=== PATIENT | male | born 1990 | race Two or more races ===

== ENCOUNTER 2017-03-16 14:01 | Emergency (ER) | payer MEDICAID ==
[~2017-03-16] VITALS: Ht 172.7 cm; Wt 90.7 kg
[2017-03-16 15:00] VITALS: BP 142/91
== END 2017-03-16 16:57 | disposition home or self-care (01) ==
LOC: ER 14:01
DX: S62.336A Displaced fracture of neck of fifth metacarpal bone, right hand, initial encounter for closed fracture (principal); F41.9 Anxiety disorder, unspecified; F17.210 Nicotine dependence, cigarettes, uncomplicated; W01.0XXA Fall on same level from slipping, tripping and stumbling without subsequent striking against object, initial encounter; Y93.89 Activity, other specified; Y92.89 Other specified places as the place of occurrence of the external cause; Y99.8 Other external cause status
CPT/HCPCS: 29125; 73130

== ENCOUNTER 2017-03-19 12:26 | Emergency (ER) | payer MEDICAID ==
[~2017-03-19] VITALS: Ht 172.7 cm; Wt 90.7 kg
[2017-03-19 12:37] VITALS: BP 129/93
== END 2017-03-19 15:12 | disposition home or self-care (01) ==
LOC: ER 12:26
DX: S62.306D Unspecified fracture of fifth metacarpal bone, right hand, subsequent encounter for fracture with routine healing (principal); F17.210 Nicotine dependence, cigarettes, uncomplicated

== ENCOUNTER 2017-04-17 10:51 | Emergency (ER) | payer MEDICAID ==
[~2017-04-17] VITALS: Ht 172.7 cm; Wt 100.7 kg
[2017-04-17 10:56] VITALS: BP 148/94
== END 2017-04-17 12:15 | disposition home or self-care (01) ==
LOC: ER 10:53
DX: F41.9 Anxiety disorder, unspecified (principal); F17.210 Nicotine dependence, cigarettes, uncomplicated; Z76.0 Encounter for issue of repeat prescription

== ENCOUNTER 2017-05-20 08:14 | Emergency (ER) | payer MEDICAID ==
[~2017-05-20] VITALS: Ht 172.7 cm; Wt 102.5 kg
[2017-05-20 09:08] VITALS: BP 143/92
[2017-05-20] MEDS ORDERED: ALPRAZolam 0.5 MG TAB PO ONE (09:30)
== END 2017-05-20 09:36 | disposition home or self-care (01) ==
LOC: ER 08:14
DX: F41.9 Anxiety disorder, unspecified (principal); F17.210 Nicotine dependence, cigarettes, uncomplicated; Z76.0 Encounter for issue of repeat prescription
CPT/HCPCS: 93005

== ENCOUNTER 2017-05-28 08:09 | Emergency (ER) | payer MEDICAID ==
[~2017-05-28] VITALS: Ht 172.7 cm; Wt 81.6 kg
[2017-05-28 08:25] VITALS: BP 155/74
== END 2017-05-28 10:26 | disposition home or self-care (01) ==
LOC: ER 08:09
DX: F41.9 Anxiety disorder, unspecified (principal); Z76.0 Encounter for issue of repeat prescription; F17.210 Nicotine dependence, cigarettes, uncomplicated

== ENCOUNTER 2017-08-21 08:49 | Emergency (ER) | payer MEDICAID ==
[~2017-08-21] VITALS: Ht 172.7 cm; Wt 103.9 kg
[2017-08-21 09:00] VITALS: BP 146/95
== END 2017-08-21 09:23 | disposition home or self-care (01) ==
LOC: ER 08:49
DX: J20.9 Acute bronchitis, unspecified (principal); F17.210 Nicotine dependence, cigarettes, uncomplicated

== ENCOUNTER 2017-08-26 06:27 | Emergency (ER) | payer MEDICAID ==
[~2017-08-26] VITALS: Ht 172.7 cm; Wt 103.9 kg
[2017-08-26 06:55] VITALS: BP 146/99
== END 2017-08-26 08:10 | disposition home or self-care (01) ==
LOC: ER 06:37
DX: F41.9 Anxiety disorder, unspecified (principal); F17.210 Nicotine dependence, cigarettes, uncomplicated; Z76.0 Encounter for issue of repeat prescription

== ENCOUNTER 2018-01-11 06:55 | Emergency (ER) | payer MEDICAID ==
[~2018-01-11] VITALS: Ht 172.7 cm; Wt 102.1 kg
[2018-01-11 07:14] VITALS: BP 148/87
== END 2018-01-11 08:48 | disposition home or self-care (01) ==
LOC: ER 06:55
DX: F41.9 Anxiety disorder, unspecified (principal); J45.909 Unspecified asthma, uncomplicated; F17.210 Nicotine dependence, cigarettes, uncomplicated

== ENCOUNTER 2018-01-17 10:20 | Emergency (ER) | payer MEDICAID, OTHER ==
[~2018-01-17] VITALS: Ht 172.7 cm; Wt 99.8 kg
[2018-01-17 10:35] VITALS: BP 143/97
[2018-01-17] MEDS ORDERED: ALPRAZolam 0.5 MG TAB PO ONE (12:45)
[2018-01-17] MEDS ORDERED: ALPRAZolam 0.5 MG TAB ONE (12:59)
== END 2018-01-17 13:08 | disposition home or self-care (01) ==
LOC: ER 10:20
DX: F41.9 Anxiety disorder, unspecified (principal); J45.909 Unspecified asthma, uncomplicated; F17.210 Nicotine dependence, cigarettes, uncomplicated; F12.10 Cannabis abuse, uncomplicated; Z76.0 Encounter for issue of repeat prescription

== ENCOUNTER 2018-04-10 08:51 | Emergency (ER) | payer OTHER ==
[~2018-04-10] VITALS: Ht 172.7 cm; Wt 99.8 kg
[2018-04-10 09:14] VITALS: BP 162/94
[2018-04-10] MEDS ORDERED: ALPRAZolam 0.5 MG TAB PO ONE (10:15)
== END 2018-04-10 10:20 | disposition home or self-care (01) ==
LOC: ER 08:51
DX: F41.9 Anxiety disorder, unspecified (principal); J45.909 Unspecified asthma, uncomplicated; F17.210 Nicotine dependence, cigarettes, uncomplicated; F12.10 Cannabis abuse, uncomplicated; Z76.0 Encounter for issue of repeat prescription

== ENCOUNTER 2018-08-04 07:39 | Emergency (ER) | payer MEDICAID ==
[~2018-08-04] VITALS: Ht 172.7 cm; Wt 99.8 kg
[2018-08-04 07:46] VITALS: BP 145/92
== END 2018-08-04 08:39 | disposition home or self-care (01) ==
LOC: ER 07:44
DX: F41.9 Anxiety disorder, unspecified (principal); F17.210 Nicotine dependence, cigarettes, uncomplicated; F12.10 Cannabis abuse, uncomplicated; F10.10 Alcohol abuse, uncomplicated; J45.909 Unspecified asthma, uncomplicated; Z76.0 Encounter for issue of repeat prescription

== ENCOUNTER 2019-03-31 10:52 | Emergency (ER) | payer MEDICAID ==
[~2019-03-31] VITALS: Ht 172.7 cm; Wt 104.3 kg
[2019-03-31] MEDS ORDERED: SODIUM CHLORIDE 0.9% 1,000 ML IV ONE (11:10)
[2019-03-31] MEDS ORDERED: LORazepam 2MG/ML-1ML VIAL IV ONE (11:15)
[2019-03-31 12:17] LABS: Alanine Aminotransferase 191 U/L (16-61); Albumin 4.8 g/dL (3.4-5.0); Alkaline Phosphatase 62 U/L (45-117); Aspartate Aminotransferase 141 U/L (15-37); BUN/Creatinine Ratio 7.7; Bilirubin, Total 1.1 mg/dL (0.2-1.0); Blood Urea Nitrogen 8 mg/dL (7-18); Calcium 9.5 mg/dL (8.5-10.1); Carbon Dioxide 26 mmol/L (21-32); GFR African American 109 mL/min; GFR Non-African American 90 mL/min; Glucose 106 mg/dL (74-106); Sodium 133 mmol/L (136-145); Total Protein 9.1 g/dL (6.4-8.2)
[2019-03-31 12:18] LABS: Anion Gap 8 (5-15); Chloride 99 mmol/L (98-107)
[2019-03-31 12:30] LABS: Lymphocytes # (auto) 1.6 uL; Nucleated Red Blood Cells % 0.1 %; Red Cell Distribution Width 13.8 % (11.8-14.3)
[2019-03-31 12:32] LABS: Basophils # (auto) 0.1 uL; Basophils % (auto) 0.7 % (0.0-2.0); Eosinophils # (auto) 0.1 uL; Eosinophils % (auto) 0.4 % (0.0-7.0); Hematocrit 54.7 % (41.0-53.0); Lymphocytes % (auto) 13.3 % (10.0-50.0); Mean Corpuscular Hemoglobin 28.9 pg (28.0-32.0); Mean Corpuscular Volume 87.6 fL (80.0-100.0); Monocytes # (auto) 0.8 uL; Monocytes % (auto) 6.8 % (0.0-12.0); Neutrophils # (auto) 9.3 uL; Neutrophils % (auto) 78.8 % (37.0-80.0); Platelet Count (auto) 381 10^3/uL (140-450); Red Blood Cells 6.24 10^6/uL (4.5-5.90); White Blood Cell 11.9 10^3/uL (4.4-10.8)
[2019-03-31 12:32] LABS: Amphetamine Screen, Urine NEGATIVE (NEGATIVE); Barbiturate Scree,Urine NEGATIVE (NEGATIVE); Benzodiazephine Screen, Urine POSITIVE (NEGATIVE); Cannabinoid Screen, Urine POSITIVE (NEGATIVE); Cocaine Screen, Urine NEGATIVE (NEGATIVE); Opiate Scree,Urine NEGATIVE (NEGATIVE); Phencyclidine Screen, Urine NEGATIVE (NEGATIVE)
[2019-03-31 12:37] LABS: Urine Bacteria NONE SEEN /hpf (None Seen); Urine Blood Negative /uL (Negative); Urine Mucus FEW (None Seen); Urine Specific Gravity 1.012 (1.001-1.035); Urine WBC 4 /hpf (0 - 3)
[2019-03-31 13:00] VITALS: BP 136/81
== END 2019-03-31 13:25 | disposition home or self-care (01) ==
LOC: ER 10:57
DX: F41.9 Anxiety disorder, unspecified (principal); J45.909 Unspecified asthma, uncomplicated; F17.210 Nicotine dependence, cigarettes, uncomplicated; F12.90 Cannabis use, unspecified, uncomplicated
CPT/HCPCS: 36415; 80053; 80307; 81001; 84484; 85025; 93005; 94761; 96361; 96374; 99284; J2060; J7030

== ENCOUNTER 2022-04-24 15:36 | Emergency (ER) | payer MEDICAID ==
[~2022-04-24] VITALS: Ht 172.7 cm; Wt 106.0 kg
[2022-04-24 15:55] LABS: Basophils # (auto) 0 10 ^3/uL (0-0.2); Basophils % (auto) 0.6 % (0.0-2.0); Eosinophils # (auto) 0 10 ^3/uL (0-0.8); Eosinophils % (auto) 0.6 % (0.0-7.0); Hematocrit 50.6 % (41.0-53.0); Hemoglobin 16.7 g/dL (13.5-17.5); Lymphocytes % (auto) 23.3 % (10.0-50.0); Mean Corpuscular Hemoglobin 28.8 pg (28.0-32.0); Mean Corpuscular Volume 87.2 fL (80.0-100.0); Monocytes # (auto) 0.5 10 ^3/uL (0-1.3); Monocytes % (auto) 5.6 % (0.0-12.0); Neutrophils # (auto) 6.1 10 ^3/uL (1.6-8.6); Neutrophils % (auto) 69.9 % (37.0-80.0); Nucleated Red Blood Cells % 0.3 %; Red Blood Cells 5.81 10^6/uL (4.5-5.90); Red Cell Distribution Width 12.8 % (11.8-14.3); White Blood Cell 8.7 10^3/uL (4.4-10.8)
[2022-04-24 16:22] LABS: Albumin 4.5 g/dL (3.4-5.0); BUN/Creatinine Ratio 10.6; Calcium 8.9 mg/dL (8.5-10.1); Potassium 3.8 mmol/L (3.5-5.1)
[2022-04-24 16:29] LABS: Urine Bacteria NONE SEEN /hpf (None Seen); Urine Blood TRACE /uL (Negative); Urine Specific Gravity 1.034 (1.001-1.035); Urine WBC 21 /hpf (0 - 3)
[2022-04-24 16:30] LABS: Bilirubin, Total 0.7 mg/dL (0.2-1.0); Total Protein 8.6 g/dL (6.4-8.2)
[2022-04-24] MEDS ORDERED: ALUM & MAG HYDROX-SIMETH LIQ(MAALOX) 30 ML PO ONE (16:30)
[2022-04-24] MEDS ORDERED: LORazepam 0.5 MG TAB PO ONE (19:15)
[2022-04-24] MEDS ORDERED: ALPR1TAB7 PO ×2 (19:27→19:29)
[2022-04-24 22:17] VITALS: BP 153/98
== END 2022-04-24 22:20 | disposition home or self-care (01) ==
LOC: ER 15:36
DX: F41.9 Anxiety disorder, unspecified (principal); J45.909 Unspecified asthma, uncomplicated; F17.210 Nicotine dependence, cigarettes, uncomplicated; F12.10 Cannabis abuse, uncomplicated
CPT/HCPCS: 36415; 71045; 80053; 81001; 82962; 84484; 85025; 93005

== ENCOUNTER 2024-12-12 08:09 | Emergency (ER) | payer MEDICAID, OTHER ==
[~2024-12-12] VITALS: Ht 172.7 cm; Wt 104.0 kg
[~2024-12-12 08:09] MED LIST: ALPR1TAB7 PO
[2024-12-12 08:52] VITALS: BP 159/88; PULSE 85; RESP 17; TEMP 98.2; O2SAT 97
--- NOTE | 2024-12-12 08:58 | ED.PDOC ---
HPI Comments This is a pleasant 33-year-old male who presents for work-related injury and was brought in by ambulance for a laceration to the left wrist that occurred approximately two hours ago. 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 Pain is currently rated as mild Denies any numbness tingling to the affected extremity Last tetanus shot was 2 years ago Chief Complaint: Laceration Time Seen by MD: 08:27 Primary Care Provider: None Reviewed Notes: Nurses Notes, Medications, Allergies Allergies: Coded Allergies: NO KNOWN ALLERGIES (Unverified , 05/28/15) Home Meds Active Scripts Alprazolam (Alprazolam) 1 Mg Tab, 1 TAB PO Q12HP PRN for 7 Days, #10 TAB Prov:ROSMERY ALVARADO MD 04/24/22 Information Source: Patient Mode of Arrival: EMS Complexity: Intermediate Laceration Length (cm): 3 Past Medical History PAST MEDICAL HISTORY: Anxiety, Asthma Surgical History: Denies all surgeries Family History Family History: Unknown Social History Smoker: Cigarettes, Less Than 1 Pack/Day Alcohol: Occasionally Drugs: Marijuana Lives In: Home All Other Systems: Reviewed and Negative (per hpi) Physical Exam General Appearance: No Apparent Distress, Normal HEENT: Normal ENT Inspection, Pharynx Normal, TMs Normal Neck: Full Range of Motion, Non-Tender, Normal, Normal Inspection Respiratory: Chest Non-Tender, Lungs Clear, No Accessory Muscle Use, No Respiratory Distress, Normal Breath Sounds Cardiovascular: No Edema, No JVD, No Murmur, No Gallop, Normal Peripheral Pulses, Regular Rate/Rhythm Breast Exam: Deferred Gastrointestinal: No Organomegaly, Non Tender, No Pulsatile Mass, Normal Bowel Sounds, Soft Genitalia: Deferred Pelvic: Deferred Rectal: Deferred Extremities: No calf tenderness, Normal capillary refill, Normal inspection, Normal range of motion, Non-tender, No pedal edema Musculoskeletal : Apperance: Normal Neurologic: Alert, supervisor contact and service clerks II-XII nml as Tested, No Motor Deficits, Normal Affect, Normal Mood, No Sensory Deficits Cerebellar Function: Normal Reflexes: Normal Skin: Dry, Normal Color, Warm Lymphatic: No Adenopathy Was a procedure done? Was a procedure done?: Yes Sedation Sedation?: No Laceration Repair : Location L wrist Length 3 Anesthetic: Lidocaine Laceration Repair Prep: Saline, Betadine Laceration Repair Wound Comple: epidermis/dermis repair Laceration Repair: Number of sutures (4), Size (4-0), Simple, Bacitracin, Non-adherent gauze, Gauze Informed consent obtained: Yes Risks, benefits, and alternati: Yes Differential diagnosis Generic Laceration: Tendon Injury, Abrasion/Contusion, Laceration, Avulsion X-Ray, Labs, Meds, VS Vital Signs Date Time Temp Pulse Resp B/P (MAP) Pulse Ox O2 Delivery O2 Flow Rate FiO2 12/12/24 08:52 98.2 85 17 159/88 (111) 97 98.2 12/12/24 08:52 85 17 97 Room Air 12/12/24 08:16 98.2 85 17 159/88 (111) 97 X-Ray, Labs, Meds, VS Comment The skin edges of the laceration were infiltrated with 1% lidocaine The skin surrounding the laceration was scrubbed with Betadine soaked sterile gauze The laceration was irrigated under high-pressure with a 60 mL syringe A total of 1L sterile water was used. Including diluted Betadine solution The laceration was prepped in sterile fashion with sterile drapes On examination under direct light, there was no foreign body seen The laceration was repaired in simple interrupted technique There was no continuing bleeding on repair. There were no complications related to repair Education and follow-up instructions provided Wound check in 2 days Return sooner for signs of infection such as fevers, increased pain, redness, green, yellow discharge, or any concerns Keep wound dry for 24 to 48 hours; dry dressing may be changed Protect from sunlight and keep area clean and dry. Use soap and water if it gets dirty High risk of possible scarring and education provided on ways to minimize scarring after wound heals Also provided education on possible complications post procedure including wound dehiscence, infection, etc. Time of 1ST Reevaluation: 08:57 Reevaluation 1ST: Improved Patient Education/Counseling: Diagnosis, Treatment Family Education/Counseling: Diagnosis, Treatment Departure 1 Departure Time of Disposition: 10:01 Impression: Primary Impression: Laceration of wrist, left Qualified Codes: S61.512A - Laceration without foreign body of left wrist, initial encounter Disposition: HOME / SELF CARE / HOMELESS Condition: Fair e-Prescriptions Bacitracin (Bacitracin Oint) 1 Applic Ap 1 APPLIC TOP BID for 7 Days, #5 GRAMS 0 Refills Prov: SANTA HARTMAN VOICE STUDIES DIRECTOR 12/12/24 Acetaminophen (Acetaminophen) 500 Mg Tab 500 MG PO Q6HP PRN for 5 Days, #20 TAB 0 Refills Prov: SANTA HARTMAN VOICE STUDIES DIRECTOR 12/12/24 Ciprofloxacin Hcl (Cipro) 500 Mg Tab 1 TAB PO BID for 5 Days, #10 TAB 0 Refills Prov: SANTA HARTMAN VOICE STUDIES DIRECTOR 12/12/24 Discharged With: Self Critical Care Note Critical Care Time?: No Stability Stability form required: No Heart Score Heart Score: Heart Score Response (Comments) Value History N/A 0 EKG N/A 0 Age N/A 0 Risk Factors N/A 0 Troponin N/A 0 Total 0 SANTA HARTMAN VOICE STUDIES DIRECTOR Dec 12, 2024 08:58
[2024-12-12] MEDS ORDERED: ACET500T58 PO (10:03)
[2024-12-12] MEDS ORDERED: BAC09TP TOP (10:03)
[2024-12-12] MEDS ORDERED: CIPR-173 PO (10:03)
== END 2024-12-12 10:16 | disposition home or self-care (01) ==
LOC: ER 08:09 → EDBD 08:09 → ER 10:15
DX: S61.512A Laceration without foreign body of left wrist, initial encounter (principal); J45.909 Unspecified asthma, uncomplicated; F17.210 Nicotine dependence, cigarettes, uncomplicated; Z79.899 Other long term (current) drug therapy; W26.8XXA Contact with other sharp object(s), not elsewhere classified, initial encounter; Y93.89 Activity, other specified; Y92.89 Other specified places as the place of occurrence of the external cause; Y99.0 Civilian activity done for income or pay
CPT/HCPCS: 12002; 99283; J2003

== ENCOUNTER 2025-04-20 06:54 | Inpatient (IN) | payer MEDICAID, OTHER ==
[~2025-04-20] VITALS: Ht 170.2 cm; Wt 104.4 kg
[~2025-04-20 06:54] MED LIST changes: +ACET500T58 PO; +BAC09TP TOP; +CIPR-173 PO
--- NOTE | 2025-04-20 07:08 | ECG ---
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
--- NOTE | 2025-04-20 07:11 | ED.PDOC ---
History of Present Illness HPI Comments 34-year-old male with PMHx Anxiety brought in by EMS presents with a chief complaint of anxiety. Patient states that he has been out of his Xanax for the past 2 days. Patient is calm and cooperative at this time. Chief Complaint: Anxiety Time Seen by MD: 07:01 Primary Care Provider: None Reviewed Notes: Medications, Allergies Allergies: Coded Allergies: NO KNOWN ALLERGIES (Unverified , 05/28/15) Home Meds Active Scripts Bacitracin (Bacitracin Oint) 1 Applic Ap, 1 APPLIC TOP BID for 7 Days, #5 GRAMS 0 Refills Prov:DEVANSANTA FILLING CARRIER 12/12/24 Acetaminophen (Acetaminophen) 500 Mg Tab, 500 MG PO Q6HP PRN for 5 Days, #20 TAB 0 Refills Prov:SANTA HARTMAN FILLING CARRIER 12/12/24 Ciprofloxacin Hcl (Cipro) 500 Mg Tab, 1 TAB PO BID for 5 Days, #10 TAB 0 Refills Prov:SANTA HARTMAN FILLING CARRIER 12/12/24 Alprazolam (Alprazolam) 1 Mg Tab, 1 TAB PO Q12HP PRN for 7 Days, #10 TAB Prov:ROSMERY ALVARADO MD 04/24/22 Information Source: Patient Mode of Arrival: EMS Severity: Moderate Timing: Days Duration: Since onset Prehospital treatment: [facility] Past Medical History PAST MEDICAL HISTORY: Anxiety, Asthma Surgical History: Denies all surgeries Family History Family History: Unknown Social History Smoker: Cigarettes, Less Than 1 Pack/Day Alcohol: Occasionally Drugs: Marijuana Lives In: Home Constitutional: denies: chills, diaphoresis, fatigue, fever, malaise, sweats, weakness, others EENTM: denies: blurred vision, double vision, ear bleeding, ear discharge, ear drainage, ear pain, ear ringing, eye pain, eye redness, hearing loss, mouth pain , mouth swelling, nasal discharge, nose bleeding, nose congestion, nose pain, photophobia, tearing, throat pain, throat swelling, voice changes, others Respiratory: denies: cough, hemoptysis, orthopnea, SOB at rest, shortness of breath, SOB with excertion, stridor, wheezing, others Cardiovascular: denies: chest pain, dizzy spells, diaphoresis, Dyspnea on exertion, edema, irregular heart beat, left arm pain, lightheadedness, palpitations, PND, syncope, others Gastrointestinal: denies: abdomen distended, abdominal pain, blood streaked bowels, constipated, diarrhea, dysphagia, difficulty swallowing, hematemesis, melena, nausea, poor appetite, poor fluid intake, rectal bleeding, rectal pain, vomiting, others Genitourinary: denies: burning, dysuria, flank pain, frequency, hematuria, incontinence, penile discharge, penile sore, pain, testicle pain, testicle swelling, urgency, others Neurological: denies: dizziness, fainting, headache, left sided numbness, left sided weakness, numbness, paresthesia, pre-existing deficit, right sided numbness, right sided weakness, seizure, speech problems, tingling, tremors, weakness, others Musculoskeletal: denies: back pain, gout, joint pain, joint swelling, muscle pain, muscle stiffness, neck pain, others Integumetry: denies: bruises, change in color, change in hair/nails, dryness, laceration, lesions, lumps, rash, wounds, others Allergic/Immunocompromised: denies: Difficulty Healing, Frequent Infections, Hives, Itching, others Hematologic/Lymphatic: denies: anemia, blood clots, easy bleeding, easy bruising, swollen glands, others Endocrine: denies: excessive hunger, excessive sweating, excessive thirst, excessive urination, flushing, intolerance to cold, intolerance to heat, unexplained weight gain, unexplained weight loss, others Psychiatric: reports: anxiety; denies: bipolar disorder, depression, hopeless, panic disorder, schizophrenia, sleepless, suicidal, others All Other Systems: Reviewed and Negative Physical Exam General Appearance: No Apparent Distress, Normal HEENT: Normal ENT Inspection, Pharynx Normal, TMs Normal Neck: Full Range of Motion, Non-Tender, Normal, Normal Inspection Respiratory: Chest Non-Tender, Lungs Clear, No Accessory Muscle Use, No Respiratory Distress, Normal Breath Sounds Cardiovascular: No Edema, No JVD, No Murmur, No Gallop, Normal Peripheral Pulses, Regular Rate/Rhythm Breast Exam: Deferred Gastrointestinal: No Organomegaly, Non Tender, No Pulsatile Mass, Normal Bowel Sounds, Soft Genitalia: Deferred Pelvic: Deferred Rectal: Deferred Extremities: No calf tenderness, Normal capillary refill, Normal inspection, Normal range of motion, Non-tender, No pedal edema Musculoskeletal : Apperance: Normal Neurologic: 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 Was a procedure done?: No Differential Dx Considerations may include: ACS, CVA, viral syndrome, electrolyte abnormality, infectious etiology X-Ray, Labs, Meds, VS Vital Signs Date Time Temp Pulse Resp B/P (MAP) Pulse Ox O2 Delivery O2 Flow Rate FiO2 04/20/25 09:54 98.1 63 16 153/95 (114) 96 98.1 04/20/25 07:32 84 20 95 Room Air* 0 21 04/20/25 07:26 66 04/20/25 07:26 98.6 66 16 161/86 (111) 97 98.6 04/20/25 06:58 64 04/20/25 06:55 98.8 64 18 162/100 (120) 97 98.8 Lab Test 04/20/25 07:16 Range/Units White Blood Count 7.7 4.4-10.8 10^3/uL Red Blood Count 5.65 4.5-5.90 10^6/uL Hemoglobin 17.1 13.5-17.5 g/dL Hematocrit 51.6 41.0-53.0 % Mean Corpuscular Volume 91.2 80.0-100.0 fL Mean Corpuscular Hemoglobin 30.2 28.0-32.0 pg Mean Corpuscular Hemoglobin Concent 33.1 32.0-36.0 g/dL Red Cell Distribution Width 13.0 11.8-14.3 % Platelet Count 236 140-450 10^3/uL Mean Platelet Volume 9.8 6.9-10.8 fL Neutrophils (%) (Auto) 68.9 37.0-80.0 % Lymphocytes (%) (Auto) 21.7 10.0-50.0 % Monocytes (%) (Auto) 8.0 0.0-12.0 % Eosinophils (%) (Auto) 0.7 0.0-7.0 % Basophils (%) (Auto) 0.7 0.0-2.0 % Neutrophils # (Auto) 5.3 1.6-8.6 10 ^3/uL Lymphocytes # (Auto) 1.7 0.4-5.4 10 ^3/uL Monocytes # (Auto) 0.6 0-1.3 10 ^3/uL Eosinophils # (Auto) 0.1 0-0.8 10 ^3/uL Basophils # (Auto) 0.1 0-0.2 10 ^3/uL Nucleated Red Blood Cells 0.2 % Sodium Level 134 L 136-145 mmol/L Potassium Level 3.7 3.5-5.1 mmol/L Chloride Level 101 98-107 mmol/L Carbon Dioxide Level 24 20-31 mmol/L Anion Gap 9 5-15 Blood Urea Nitrogen 12 9-23 mg/dL Creatinine 0.82 0.700-1.30 mg/dL Glomerular Filtration Rate Calc 118 >90 mL/min BUN/Creatinine Ratio 14.6 10.0-20.0 Serum Glucose 205 H 74-106 mg/dL Calcium Level 9.8 8.7-10.4 mg/dL Troponin I High Sensitivity < 3 L </=54 ng/L Current Medications Medications (Trade) Dose Ordered Sig/Lizette Route Start Time Stop Time Status Last Admin Alprazolam (Xanax Tablet) 1 mg ONCE ONCE PO 04/20/25 07:15 04/20/25 07:16 DC 04/20/25 07:25 Time of 1ST Reevaluation: 07:31 Reevaluation 1ST: Unchanged Patient Education/Counseling: Diagnosis, Treatment Family Education/Counseling: No Family Present SEPSIS Sepsis Screen Physician Orders Chest Portable (04/20/25 07:08) Vital Signs Date Time Temp Pulse Resp B/P (MAP) Pulse Ox O2 Delivery O2 Flow Rate FiO2 04/20/25 09:54 98.1 63 16 153/95 (114) 96 98.1 04/20/25 07:32 84 20 95 Room Air* 0 21 04/20/25 07:26 66 04/20/25 07:26 98.6 66 16 161/86 (111) 97 98.6 04/20/25 06:58 64 04/20/25 06:55 98.8 64 18 162/100 (120) 97 98.8 Laboratory Tests Test 04/20/25 07:16 White Blood Count 7.7 10^3/uL (4.4-10.8) Medications Medications Dose Ordered Sig/Lizette Route Start Time Stop Time Status Last Admin Dose Admin Alprazolam 1 mg ONCE ONCE PO 04/20/25 07:15 04/20/25 07:16 DC 04/20/25 07:25 Departure 1 Departure Time of Disposition: 11:00 (Patient presented with chest pain that was concerning for possible STEMI, ACS, PE, Pneumonia, Muscle Strain, COPD, Dissection. Data: 1. I ordered and reviewed the result of at least 3 labs including a CBC, BMP, and Troponin. 2. I independently interpreted the following tests: EKG which shows sinus arrhythmia and Chest X-ray which shows viral pneumonitis.Risk:This patient has a high risk of morbidity due to further diag nostic testing or treatment and may suffer from an acute cardiac or respiratory disorder. Workup reveals concern for ACS and patient should be admitted for further workup and possible expert consultation. ) Impression: Primary Impression: Acute chest pain Additional Impressions: Anxiety Generalized weakness Disposition: ADMITTED INPATIENT Admit to: Med Surg Condition: Serious Critical Care Note Critical Care Time?: Yes Critical care comment: Acute chest pain Authorized and Performed by: Sanjana Fernandez MD Total critical care time: Approximately 39 minutes Due to a high probability of clinically significant, life threatening deterioration, the patient required my highest level of preparedness to intervene emergently and I personally spent this critical care time directly and personally managing the patient. This critical care time included obtaining a history; examining the patient; pulse oximetry; ordering and review of studies; arranging urgent treatment with development of a management plan; evaluation of patient's response to treatment; frequent reassessment; and, discussions with other providers. This critical care time was performed to assess and manage the high probability of imminent, life-threatening deterioration that could result in multi-organ failure. It was exclusive of separately billable procedures and treating other patients and teaching time. Please see my other sections and the rest of the note for further information on patient assessment and treatment. Stability Stability form required: No Heart Score Heart Score: Heart Score Response (Comments) Value History Moderate Suspicious 1 EKG Repolarization Disturb 1 Age <45 0 Risk Factors 1 or 2 risk factors 1 Troponin Normal limit 0 Total 3 I personally scribed for SANJANA FERNANDEZ MD ([email or web address]) on 04/20/25 at 07:11. Electronically submitted by Long Zacarias ([email or web address]). SANJANA FERNANDEZ MD Apr 20, 2025 07:11
[2025-04-20] MEDS: ALPRAZolam 0.5 MG TAB PO ONE (07:25)
[2025-04-20 07:32] VITALS: PULSE 84; RESP 20; O2SAT 95
[2025-04-20 07:36] LABS: Hematocrit 51.6 % (41.0-53.0); Hemoglobin 17.1 g/dL (13.5-17.5); Mean Corpuscular Hemoglobin 30.2 pg (28.0-32.0); Mean Corpuscular Volume 91.2 fL (80.0-100.0); Nucleated Red Blood Cells % 0.2 %
--- NOTE | 2025-04-20 07:42 | DVH ---
CHEST RADIOGRAPH Indication: chest pain Technique: Single frontal view of the chest was obtained COMPARISON: CHEST PORTABLE on DOS: 04/24/22 FINDINGS: Lines and Tubes: None Lungs: Increased interstitial prominence Pleura: No effusion. No pneumothorax. Cardiomediastinal contours: Unremarkable Bones: Unremarkable IMPRESSION: Possible viral pneumonia
[2025-04-20 07:43] LABS: Chloride 101 mmol/L (98-107); Potassium 3.7 mmol/L (3.5-5.1)
[2025-04-20 07:44] LABS: Anion Gap 9 (5-15); Calcium 9.8 mg/dL (8.7-10.4); Carbon Dioxide 24 mmol/L (20-31)
[2025-04-20 07:49] LABS: BUN/Creatinine Ratio 14.6 (10.0-20.0); Blood Urea Nitrogen 12 mg/dL (9-23)
[2025-04-20 07:50] LABS: Glucose 205 mg/dL (74-106); Sodium 134 mmol/L (136-145)
[2025-04-20] MEDS ORDERED: HYDR25TA5 PO (12:20)
[2025-04-20] MEDS ORDERED: LISI40TA16 PO (12:20)
[2025-04-20] MEDS ORDERED: CHOL1CAP21 PO (12:20)
[2025-04-20] MEDS ORDERED: ACETAMINOPHEN 325 MG TAB PO PRN (12:30)
[2025-04-20] MEDS ORDERED: ONDANSETRON HCL 4 MG/2 ML VIAL IV PRN (12:30)
[2025-04-20] MEDS ORDERED: DEXTROSE (50%) 50ML SYRG IV PRN (12:30)
--- NOTE | 2025-04-20 12:30 | DVHHP2 ---
History of Present Illness Reason for Visit: Anxiety History of Present Illness Marlo Hassan is a 34-year-old male with past medical history of anxiety, hypertension, prediabetes, left eye surgery, brain tumor removal at 5 years old, ex tobacco use, and ex alcohol use who presents to the ED with anxiety. Patient reports that he ran out of his Xanax for the last 2 days and states that he has an appointment coming up with his physician on May 05 which is when he will be back in town. Patient denies any chest pain, shortness of breath, fever, chills, lightheadedness, weakness, dizziness, nausea, vomiting, diarrhea, or urinary symptoms. Patient also reports that he is compliant with his medications. Cardiovascular: HTN Psych: Anxiety Past Medical History Prediabetes Past Surgical History: Other (Left eye surgery in brain tumor removal at 5 years old) Family History: DM, Other (Mom and dad with diabetes) Smoke: Quit ALCOHOL: none (Quit) Drugs: None Lives: with Family Domestic Violence: Neg Review of Systems Other Anxiety Allergies: Coded Allergies: NO KNOWN ALLERGIES (Unverified , 05/28/15) Medications Current Medications Medications Dose Ordered Sig/Lizette Route Start Time Stop Time Status Last Admin Dose Admin Ondansetron HCl 4 mg Q4HP PRN IV 04/20/25 12:30 UNV Acetaminophen 650 mg Q6HP PRN PO 04/20/25 12:30 UNV Diagnostic Test (Pha) 1 strip ACHS 04/20/25 17:00 UNV Insulin Human Regular ACHS SC 04/20/25 17:00 UNV Dextrose 50 ml UD PRN IV 04/20/25 12:30 UNV Patient Own Medication 1 tab BID PO 04/20/25 22:00 UNV Exam Vital Signs Vital Signs Date Time Temp Pulse Resp B/P (MAP) Pulse Ox O2 Delivery O2 Flow Rate FiO2 04/20/25 09:54 98.1 63 16 153/95 (114) 96 98.1 04/20/25 07:32 Room Air* 0 21 General Appearance: Alert, Oriented X3, Cooperative, No acute distress HEENT: Atraumatic, PERRLA, EOMI, Mucous membr. moist/pink Respiratory: Clear to auscultation, Normal air movement Cardiovascular: Regular rate, Normal S1, Normal S2, No murmurs Abdominal: Normal bowel sounds, Soft, No tenderness Extremities: No edema, Normal pulses Skin: No significant lesion Neuro: Normal gait, Normal speech, Strength at 5/5 X4 ext, Normal tone, Sensation intact Psych/Mental Status: Mental status NL Labs/Xrays Labs Test 04/20/25 07:16 Range/Units White Blood Count 7.7 4.4-10.8 10^3/uL Red Blood Count 5.65 4.5-5.90 10^6/uL Hemoglobin 17.1 13.5-17.5 g/dL Hematocrit 51.6 41.0-53.0 % Mean Corpuscular Volume 91.2 80.0-100.0 fL Mean Corpuscular Hemoglobin 30.2 28.0-32.0 pg Mean Corpuscular Hemoglobin Concent 33.1 32.0-36.0 g/dL Red Cell Distribution Width 13.0 11.8-14.3 % Platelet Count 236 140-450 10^3/uL Mean Platelet Volume 9.8 6.9-10.8 fL Neutrophils (%) (Auto) 68.9 37.0-80.0 % Lymphocytes (%) (Auto) 21.7 10.0-50.0 % Monocytes (%) (Auto) 8.0 0.0-12.0 % Eosinophils (%) (Auto) 0.7 0.0-7.0 % Basophils (%) (Auto) 0.7 0.0-2.0 % Neutrophils # (Auto) 5.3 1.6-8.6 10 ^3/uL Lymphocytes # (Auto) 1.7 0.4-5.4 10 ^3/uL Monocytes # (Auto) 0.6 0-1.3 10 ^3/uL Eosinophils # (Auto) 0.1 0-0.8 10 ^3/uL Basophils # (Auto) 0.1 0-0.2 10 ^3/uL Nucleated Red Blood Cells 0.2 % Sodium Level 134 L 136-145 mmol/L Potassium Level 3.7 3.5-5.1 mmol/L Chloride Level 101 98-107 mmol/L Carbon Dioxide Level 24 20-31 mmol/L Anion Gap 9 5-15 Blood Urea Nitrogen 12 9-23 mg/dL Creatinine 0.82 0.700-1.30 mg/dL Glomerular Filtration Rate Calc 118 >90 mL/min BUN/Creatinine Ratio 14.6 10.0-20.0 Serum Glucose 205 H 74-106 mg/dL Calcium Level 9.8 8.7-10.4 mg/dL Troponin I High Sensitivity < 3 L </=54 ng/L CHEST RADIOGRAPH Indication: chest pain Technique: Single frontal view of the chest was obtained COMPARISON: CHEST PORTABLE on DOS: 04/24/22 FINDINGS: Lines and Tubes: None Lungs: Increased interstitial prominence Pleura: No effusion. No pneumothorax. Cardiomediastinal contours: Unremarkable Bones: Unremarkable IMPRESSION: Possible viral pneumonia SEPSIS Sepsis Screen Date sepsis recognized/suspect: Apr 20, 2025 Time Sepsis recognized/suspect: 654 Recent Procedure: No On Antibiotic Therapy: No Respiratory Rate >20: No Heart Rate >90: No Temp<36 C (96.8 F) or >38.3 C: No SBP <90 or MAP <65 mmHG: No New Acute Mental Status Change: No Is the patient on CPAP, BIPAP,: No Physician Orders Chest Portable (04/20/25 07:08) Admit (04/20/25 12:17) Allergies (04/20/25 12:17) Ondansetron Hcl (Zofran) (04/20/25 12:30) Complete Blood Count (04/21/25 04:00) Comprehensive Metabolic Panel (04/21/25 04:00) Cardiac Diet-2gna,Lofat,Lochol (04/20/25 Lunch) Acetaminophen Tablet (Tylenol Tablet) (04/20/25 12:30) Sequential Compression Device (04/20/25 ) Glucose Blood (Accu-Chek Comfort Curve T (04/20/25 17:00) Insulin R (Human) (Insulin R) (04/20/25 17:00) Dextrose 50% Syringe (04/20/25 12:30) Hemoglobin A1c (04/20/25 12:17) (Nf) Alprazolam (04/20/25 22:00) Vital Signs Date Time Temp Pulse Resp B/P (MAP) Pulse Ox O2 Delivery O2 Flow Rate FiO2 04/20/25 09:54 98.1 63 16 153/95 (114) 96 98.1 04/20/25 07:32 84 20 95 Room Air* 0 21 04/20/25 07:26 66 04/20/25 07:26 98.6 66 16 161/86 (111) 97 98.6 04/20/25 06:58 64 04/20/25 06:55 98.8 64 18 162/100 (120) 97 98.8 Laboratory Tests Test 04/20/25 07:16 White Blood Count 7.7 10^3/uL (4.4-10.8) Medications Medications Dose Ordered Sig/Lizette Route Start Time Stop Time Status Last Admin Dose Admin Alprazolam 1 mg ONCE ONCE PO 04/20/25 07:15 04/20/25 07:16 DC 04/20/25 07:25 1 MG Assessment/Plan Assessment/Plan Assessment Generalized anxiety disorder Hyperglycemia Pneumonia, possibly viral Hyponatremia History of hypertension ? Prediabetic History of left eye surgery History of brain tumor removal at 5 years old Ex-smoker Ex alcohol use Plan [facility] Hemoglobin A1c ISS and Accu-Cheks Xanax Chest x-ray noted Troponin noted EKG Diet Home medications reconciled DVT prophylaxis-not indicated patient ambulating PUD prophylaxis-not indicated no history of GERD or GI bleed Discussed plan of care with patient and nurse Counseled patient on continuance of cessation of alcohol and tobacco use [id number] Behavior change smoking [id number] Preventive counseling healthy eating habits, physical activity, and regular checkups Plan discussed with: Patient My Orders Orders - ERNESTO WOODWARD 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 INSTALLER Procedure Category Date Status Time Admit ADMIT 04/20/25 Transmitted 12:17 Allergies RAVI 04/20/25 In Process 12:17 Ondansetron Hcl PHA 04/20/25 Logged (Zofran) 12:30 Complete Blood Count LAB 04/21/25 Verified 04:00 Comprehensive LAB 04/21/25 Verified Metabolic Panel 04:00 Cardiac DIET 04/20/25 Transmitted Diet-2gna,Lofat,Lochol Lunch Acetaminophen Tablet PHA 04/20/25 Logged (Tylenol Tablet) 12:30 Sequential RAVI 04/20/25 In Process Compression Device Glucose Blood PHA 04/20/25 Logged (Accu-Chek Comfort 17:00 Insulin R (Human) PHA 04/20/25 Logged (Insulin R) 17:00 Dextrose 50% Syringe PHA 04/20/25 Logged 12:30 Hemoglobin A1c LAB 04/20/25 Logged 12:17 (Nf) Alprazolam PHA 04/20/25 Transmitted 22:00 Date of Service: Apr 20, 2025 Billing Provider: ERNESTO WOODWARD Common Visit Codes: [id number] INP/OBS CARE (HIGH) Secondary Visit Codes: [id number] COUNSELING IND, [id number] CHNG GIANCARLO 3-10m ERNESTO WOODWARD Apr 20, 2025 12:30
[2025-04-20] MEDS: ACCU-CHEK COMFORT CURVE STRIP VI SCH (17:57)
[2025-04-20] MEDS: InsuLIN REG 1unit/0.01ml Soln (100units/ml) SC SCH (18:02)
[2025-04-20] MEDS: ALPRAZolam 0.5 MG TAB PO PRN (18:03)
[2025-04-20 20:00] VITALS: PULSE 84; RESP 18; O2SAT 95
[2025-04-20 21:00] VITALS: BP 134/89; PULSE 60; RESP 18; TEMP 97.6; O2SAT 95
[2025-04-21] MEDS: MELATONIN 5 MG TAB PO SCH (02:23)
[2025-04-21] MEDS: HYDROcodone-ACET 5/325MG TAB PO PRN (02:25)
[2025-04-21 05:00] VITALS: BP 115/66; PULSE 51; RESP 18; TEMP 97.6; O2SAT 97
[2025-04-21] MEDS: hydroCHLOROthiazide 25 MG TAB PO SCH (06:45)
[2025-04-21 07:34] LABS: Hematocrit 49.1 % (41.0-53.0); Hemoglobin 16.6 g/dL (13.5-17.5); Mean Corpuscular Hemoglobin 30.9 pg (28.0-32.0); Mean Corpuscular Volume 91.5 fL (80.0-100.0); Nucleated Red Blood Cells % 0.1 %
[2025-04-21 07:52] LABS: Alkaline Phosphatase 71 U/L (46-116); Anion Gap 8 (5-15); BUN/Creatinine Ratio 13.5 (10.0-20.0); Blood Urea Nitrogen 12 mg/dL (9-23); Carbon Dioxide 27 mmol/L (20-31); Chloride 101 mmol/L (98-107); Potassium 4.0 mmol/L (3.5-5.1); Sodium 136 mmol/L (136-145); Total Protein 7.6 g/dL (5.7-8.2)
[2025-04-21 07:53] LABS: Bilirubin, Total 1.1 mg/dL (0.2-1.0)
[2025-04-21 07:57] LABS: Glucose 180 mg/dL (74-106)
[2025-04-21 07:58] LABS: Alanine Aminotransferase 184 U/L (7-40); Albumin 4.9 g/dL (3.2-4.8); Calcium 10.5 mg/dL (8.7-10.4)
[2025-04-21 09:00] VITALS: BP 138/88; PULSE 59; RESP 18; TEMP 97.6; O2SAT 97
[2025-04-21] MEDS: LISINOPRIL 20 MG TAB PO SCH (09:40)
[2025-04-21 10:16] LABS: Hepatitis B Surface Antigen Negative (Negative)
[2025-04-21 10:48] LABS: Hepatitis C Antibody Negative (Negative)
--- NOTE | 2025-04-21 11:59 | DVHPN2 ---
Reviewed: Care Plan, H&P, Labs, Medications, Previous Orders Changes from previous H/P or p: No Changes General: Per HPI Objective Vitals Vital Signs Date Time Temp Pulse Resp B/P (MAP) Pulse Ox O2 Delivery O2 Flow Rate FiO2 04/21/25 09:40 138/88 04/21/25 09:00 97.6 59 18 97 97.6 04/21/25 08:00 Room Air* 0 21 General Appearance: Alert, Oriented X3, Cooperative Cardiovascular: Regular rate, Normal S1, Normal S2 Neuro: Normal gait, Normal speech Medications Current Medications Medications Dose Ordered Sig/Lizette Route Start Time Stop Time Status Last Admin Dose Admin Ondansetron HCl 4 mg Q4HP PRN IV 04/20/25 12:30 Acetaminophen 650 mg Q6HP PRN PO 04/20/25 12:30 Diagnostic Test (Pha) 1 strip ACHS 04/20/25 17:00 04/21/25 10:58 1 STRIP Insulin Human Regular ACHS SC 04/20/25 17:00 04/21/25 11:03 3 UNITS Dextrose 50 ml UD PRN IV 04/20/25 12:30 Alprazolam 1 mg BID PRN PO 04/20/25 22:00 04/21/25 06:51 1 MG Hydrochlorothiazide 25 mg QAM PO 04/21/25 07:00 04/21/25 06:45 25 MG Ergocalciferol 50,000 unit QWEEKLY PO 04/24/25 10:00 Lisinopril 40 mg DAILY PO 04/21/25 10:00 04/21/25 09:40 40 MG Acetaminophen/ Hydrocodone Bitart 1 tab Q6HPRN PRN PO 04/21/25 02:00 04/21/25 09:41 1 TAB Melatonin 5 mg NOW PO 04/21/25 02:00 04/21/25 02:23 5 MG Laboratory Results Laboratory Tests 04/21/25 06:11 Chemistry Test 04/21/25 06:11 Albumin 4.9 g/dL (3.2-4.8) H Calcium Level 10.5 mg/dL (8.7-10.4) H Total Protein 7.6 g/dL (5.7-8.2) LFT Test 04/21/25 06:11 Alanine Aminotransferase (ALT) 184 U/L (7-40) H Alkaline Phosphatase 71 U/L (46-116) Aspartate Amino Transferase (AST) 152 U/L (13-40) H Total Bilirubin 1.1 mg/dL (0.2-1.0) H Labs and/or images reviewed: Labs reviewed by me, Image(s) reviewed by me Assessment/Plan Assessment/Plan Generalized anxiety disorder Hyperglycemia Pneumonia, possibly viral Hyponatremia History of hypertension ? Prediabetic History of left eye surgery History of brain tumor removal at 5 years old Ex-smoker Ex alcohol use 04/21/2025 altered mental status anxiety treatment Plan discussed with: Patient Date of Service: Apr 22, 2025 Billing Provider: HEYDI POWELL DO Common Visit Codes: [id number] INP/OBS CARE(HIGH) HEYDI POWELL DO Apr 21, 2025 11:58
[2025-04-21 13:00] VITALS: BP 128/82; PULSE 90; RESP 18; TEMP 98; O2SAT 95
[2025-04-21 17:00] VITALS: BP 135/80; PULSE 72; RESP 18; TEMP 97.6; O2SAT 96
[2025-04-21] MEDS: AZITHROMYCIN 500MG/ 250ML 250 ML IV SCH (17:46)
[2025-04-21 20:00] VITALS: PULSE 80; RESP 18; O2SAT 94
[2025-04-21 21:00] VITALS: BP 116/77; PULSE 80; RESP 18; TEMP 98.2; O2SAT 94
[2025-04-21] MEDS: MELATONIN 5 MG TAB PO ONE (23:54)
[2025-04-22] VITALS (9 sets, daily range): BP systolic 99–135; BP diastolic 51–88; PULSE 54–68; RESP 16–20; TEMP 97.4–98.4; O2SAT 93–98
--- NOTE | 2025-04-22 19:48 | DVHPN2 ---
Reviewed: Care Plan, H&P, Labs, Medications, Previous Orders Changes from previous H/P or p: No Changes General: Per HPI Objective Vitals Vital Signs Date Time Temp Pulse Resp B/P (MAP) Pulse Ox O2 Delivery O2 Flow Rate FiO2 04/22/25 16:36 98.4 64 18 134/88 (103) 96 98.4 04/22/25 08:00 Room Air* 0 21 Intake/Output Intake and Output 04/22/25 07:00 Intake Total 2784 ml Balance 2784 ml Intake Oral 2534 ml IV Total 250 ml # Voids 14 # Bowel Movements 3 General Appearance: Alert, Oriented X3, Cooperative Cardiovascular: Regular rate, Normal S1, Normal S2 Neuro: Normal gait, Normal speech Medications Current Medications Medications Dose Ordered Sig/Lizette Route Start Time Stop Time Status Last Admin Dose Admin Ondansetron HCl 4 mg Q4HP PRN IV 04/20/25 12:30 Acetaminophen 650 mg Q6HP PRN PO 04/20/25 12:30 Diagnostic Test (Pha) 1 strip ACHS 04/20/25 17:00 04/22/25 16:39 1 STRIP Insulin Human Regular ACHS SC 04/20/25 17:00 04/22/25 12:02 4 UNITS Dextrose 50 ml UD PRN IV 04/20/25 12:30 Alprazolam 1 mg BID PRN PO 04/20/25 22:00 04/22/25 14:51 1 MG Hydrochlorothiazide 25 mg QAM PO 04/21/25 07:00 04/22/25 06:01 25 MG Ergocalciferol 50,000 unit QWEEKLY PO 04/24/25 10:00 Lisinopril 40 mg DAILY PO 04/21/25 10:00 04/21/25 09:40 40 MG Acetaminophen/ Hydrocodone Bitart 1 tab Q6HPRN PRN PO 04/21/25 02:00 04/22/25 11:59 1 TAB Melatonin 5 mg NOW PO 04/21/25 02:00 04/21/25 02:23 5 MG Azithromycin 250 ml @ 125 mls/hr DAILY IV 04/21/25 17:30 04/22/25 09:42 125 MLS/HR Laboratory Results Laboratory Tests 04/21/25 06:11 Labs and/or images reviewed: Labs reviewed by me, Image(s) reviewed by me Assessment/Plan Assessment/Plan Generalized anxiety disorder Hyperglycemia Pneumonia, possibly viral Hyponatremia History of hypertension ? Prediabetic History of left eye surgery History of brain tumor removal at 5 years old Ex-smoker Ex alcohol use 04/21/2025 altered mental status 04/22/2025 continue with current care pt seen t bedside Plan discussed with: Patient Date of Service: Apr 22, 2025 Billing Provider: HEYDI POWELL DO Common Visit Codes: [id number] INP/OBS CARE(HIGH) HEYDI POWELL DO Apr 22, 2025 19:48
[2025-04-23] VITALS (8 sets, daily range): BP systolic 120–139; BP diastolic 64–92; PULSE 60–75; RESP 18; TEMP 97.5–98.1; O2SAT 94–98
[2025-04-24 01:00] VITALS: BP 106/68; PULSE 60; RESP 18; TEMP 98.1; O2SAT 97
[2025-04-24 04:55] VITALS: BP 112/71; PULSE 63; RESP 18; TEMP 98.1; O2SAT 98
[2025-04-24 09:00] VITALS: BP 122/58; PULSE 71; RESP 18; TEMP 98; O2SAT 98
[2025-04-24] MEDS: ERGOCALCIFEROL 50,000 UNIT(1.25MG) CAP PO SCH (11:13)
[2025-04-24 13:02] VITALS: BP 127/79; PULSE 71; RESP 16; TEMP 98.4; O2SAT 96
[2025-04-24] MEDS: INSULIN LANTUS (GLARGINE) 1 /0.01ml (100units/ml) SC ONE (16:24)
[2025-04-24 17:29] VITALS: BP 155/77; PULSE 67; RESP 18; TEMP 98.2; O2SAT 97
[2025-04-25] MEDS ORDERED: INSULIN LANTUS (GLARGINE) 1 /0.01ml (100units/ml) SC SCH (10:00)
== END 2025-04-24 18:45 | disposition home or self-care (01) | DRG 139 ==
LOC: ER 06:54 → EDBD 06:54 → OVERFLOW 12:21 → WEST WING 18:23
PROVIDERS: ADMIT Internal Medicine; ATTEND Internal Medicine
DX: J12.9 Viral pneumonia, unspecified (principal); E87.1 Hypo-osmolality and hyponatremia; F41.1 Generalized anxiety disorder; R73.9 Hyperglycemia, unspecified; I10 Essential (primary) hypertension; R73.03 Prediabetes; J45.909 Unspecified asthma, uncomplicated; F17.210 Nicotine dependence, cigarettes, uncomplicated; Z83.3 Family history of diabetes mellitus; Z79.899 Other long term (current) drug therapy
CPT/HCPCS: 36415; 71045; 80048; 80053; 82962; 83036; 84484; 85025; 86803; 87340; 93005; 96372; 99291; G0378; J1815

== ENCOUNTER 2025-08-14 07:30 | Inpatient (IN) | payer MEDICAID ==
[~2025-08-14] VITALS: Ht 172.7 cm; Wt 101.0 kg
[~2025-08-14 07:30] MED LIST changes: +CHOL1CAP21 PO; +HYDR25TA5 PO; +LISI40TA16 PO
--- NOTE | 2025-08-14 07:43 | ECG ---
[facility] Test Date: 2025-08-14 Test Time: 07:35:48 Pat Name: JAS MAYNARD Department: Room: Gender: M [employer] Supervisor: DEIDRA : 1990 Requested By: SANJANA FERNANDEZ Order Number: [id number] Reading MD: Joo Valdovinos Measurements Intervals [place] Rate: 60 P: 24 NV: 154 QRS: 88 QRSD: 102 T: 15 QT: 399 QTc: 399 Interpretive Statements Sinus rhythm Electronically Signed On 08-14-2025 11:02:08 PST by Joo Valdovinos Please click the below link to view image of tracing.
--- NOTE | 2025-08-14 08:21 | ED.PDOC ---
HPI Comments 34-year-old male with PMHx HTN, anxiety, asthma, DM presents to the ED with a chief complaint of palpitations onset 2 days. Patient states he has been experiencing palpitations and chest pain, described as a pressure sensation rates pain 10/10 for the past 2 days. Patient also states he ran out of Xanax prescription 2 days to go prior to symptoms. Patient is currently feeling anxious. Patient did not take HTN medication this morning. Denies fever, chills, nausea, vomiting, diarrhea, dizziness, blurred vision, headache, numbness/tingling, dysuria, hematuria, fall, injury. No other symptoms or mod ifying factors present at this time. Chief Complaint: Palpitations Time Seen by MD: 08:10 Primary Care Provider: None Reviewed Notes: Medications, Allergies Allergies: Coded Allergies: NO KNOWN ALLERGIES (Unverified , 05/28/15) Home Meds Active Scripts Bacitracin (Bacitracin Oint) 1 Applic Ap, 1 APPLIC TOP BID for 7 Days, #5 GRAMS 0 Refills Prov:SANTA HARTMAN DIRECTOR [employer] 12/12/24 Acetaminophen (Acetaminophen) 500 Mg Tab, 500 MG PO Q6HP PRN for 5 Days, #20 TAB 0 Refills Prov:SANTA HARTMAN DIRECTOR [employer] 12/12/24 Ciprofloxacin Hcl (Cipro) 500 Mg Tab, 1 TAB PO BID for 5 Days, #10 TAB 0 Refills Prov:SANTA HARTMAN DIRECTOR [employer]SP[employer] 12/12/24 Alprazolam (Alprazolam) 1 Mg Tab, 1 TAB PO Q12HP PRN for 7 Days, #10 TAB Prov:ROSMERY ALVARADO MD 04/24/22 Reported Medications Cholecalciferol (Vitamin D3) 50,000 Unit Cap, 1 CAP PO QWEEKLY 04/20/25 Hctz (Hydrochlorothiazide) 25 Mg Tab, 1 TAB PO DAILY 04/20/25 Lisinopril (Lisinopril) 40 Mg Tab, 1 TAB PO DAILY 04/20/25 Information Source: Patient Mode of Arrival: Ambulatory Severity: Moderate Timing: Days Duration: Since onset Prehospital treatment: None Location: Substernal Radiation: No Radiation Quality: Tightness Onset: At Rest Cardiac Risk Factors: HTN, Diabetes PE Risk Factors: None History of: None Modifying Factors: Nothing Associated Signs and Symptoms: Palpitations Past Medical History PAST MEDICAL HISTORY: Anxiety, Asthma, DM, HTN Surgical History: Denies all surgeries Family History Family History: Unknown Social History Smoker: Cigarettes, Less Than 1 Pack/Day Alcohol: Occasionally Drugs: Marijuana Lives In: Home Constitutional: denies: chills, diaphoresis, fatigue, fever, malaise, sweats, weakness, others EENTM: denies: blurred vision, double vision, ear bleeding, ear discharge, ear drainage, ear pain, ear ringing, eye pain, eye redness, hearing loss, mouth pain, mouth swelling, nasal discharge, nose bleeding, nose congestion, nose pa in, photophobia, tearing, throat pain, throat swelling, voice changes, others Respiratory: denies: cough, hemoptysis, orthopnea, SOB at rest, shortness of breath, SOB with excertion, stridor, wheezing, others Cardiovascular: reports: chest pain, palpitations; denies: dizzy spells, diaphoresis, Dyspnea on exertion, edema, irregular heart beat, left arm pain, lightheadedness, PND, syncope, others Gastrointestinal: denies: abdomen distended, abdominal pain, blood streaked bowels, constipated, diarrhea, dysphagia, difficulty swallowing, hematemesis, melena, nausea, poor appetite, poor fluid intake, rectal bleeding, rectal pain, vomiting, others Genitourinary: denies: burning, dysuria, flank pain, frequency, hematuria, incontinence, penile discharge, penile sore, pain, testicle pain, testicle swelling, urgency, others Neurological: denies: dizziness, fainting, headache, left sided numbness, left sided weakness, numbness, paresthesia, pre-existing deficit, right sided numbness, right sided weakness, seizure, speech problems, tingling, tremors, weakness, others Musculoskeletal: denies: back pain, gout, joint pain, joint swelling, muscle pain, muscle stiffness, neck pain, others Integumetry: denies: bruises, change in color, change in hair/nails, dryness, laceration, lesions, lumps, rash, wounds, others Allergic/Immunocompromised: denies: Difficulty Healing, Frequent Infections, Hives, Itching, others Hematologic/Lymphatic: denies: anemia, blood clots, easy bleeding, easy bruising, swollen glands, others Endocrine: denies: excessive hunger, excessive sweating, excessive thirst, excessive urination, flushing, intolerance to cold, intolerance to heat, unexplained weight gain, unexplained weight loss, others Psychiatric: reports: anxiety; denies: bipolar disorder, depression, hopeless, panic disorder, schizophrenia, sleepless, suicidal, others All Other Systems: Reviewed and Negative Physical Exam General Appearance: Normal HEENT: Normal ENT Inspection, Pharynx Normal, TMs Normal Neck: Full Range of Motion, Non-Tender, Normal, Normal Inspection Respiratory: Chest Non-Tender, Lungs Clear, No Accessory Muscle Use, No Respiratory Distress, Normal Breath Sounds Cardiovascular: No Edema, No JVD, No Murmur, No Gallop, Normal Peripheral Pulses, Regular Rate/Rhythm Breast Exam: Deferred Gastrointestinal: No Organomegaly, Non Tender, No Pulsatile Mass, Normal Bowel Sounds, Soft Genitalia: Deferred Pelvic: Deferred Rectal: Deferred Extremities: No calf tenderness, Normal capillary refill, Normal inspection, Normal range of motion, Non-tender, No pedal edema Musculoskeletal : Apperance: Normal Neurologic: Alert, toll booth operator II-XII nml as Tested, No Motor Deficits, Normal Affect, Normal Mood, No Sensory Deficits Cerebellar Function: Normal Reflexes: Normal Skin: Dry, Normal Color, Warm Lymphatic: No Adenopathy EKG EKG : Pulse Rate (adult): 60 Cardiac Rhythm: NSR Was a procedure done? Was a procedure done?: No CP Differential Dx Differential Diagnosis: Angina, Anxiety / Panic Attack, AV Block 1st Degree, Hypoxia, MAT Differential Diagnosis: HTN Essential, HTN Accelerated Differential Diagnosis: Gastritis, Myocardial Infarction X-Ray, Labs, Meds, VS Vital Signs Date Time Temp Pulse Resp B/P (MAP) Pulse Ox O2 Delivery O2 Flow Rate FiO2 08/14/25 09:34 98.7 60 17 169/99 (122) 96 98.7 08/14/25 09:34 60 08/14/25 08:21 60 08/14/25 07:35 60 08/14/25 07:32 98.0 65 17 179/109 97 98.0 Lab Test 08/14/25 09:44 08/14/25 08:35 Range/Units Troponin I High Sensitivity < 3 L < 3 L </=54 ng/L White Blood Count 5.8 4.4-10.8 10^3/uL Red Blood Count 5.18 4.5-5.90 10^6/uL Hemoglobin 15.6 13.5-17.5 g/dL Hematocrit 47.1 41.0-53.0 % Mean Corpuscular Volume 90.9 80.0-100.0 fL Mean Corpuscular Hemoglobin 30.2 28.0-32.0 pg Mean Corpuscular Hemoglobin Concent 33.2 32.0-36.0 g/dL Red Cell Distribution Width 13.8 11.8-14.3 % Platelet Count 224 140-450 10^3/uL Mean Platelet Volume 9.1 6.9-10.8 fL Neutrophils (%) (Auto) 65.6 37.0-80.0 % Lymphocytes (%) (Auto) 25.1 10.0-50.0 % Monocytes (%) (Auto) 7.2 0.0-12.0 % Eosinophils (%) (Auto) 1.1 0.0-7.0 % Basophils (%) (Auto) 1.0 0.0-2.0 % Neutrophils # (Auto) 3.8 1.6-8.6 10 ^3/uL Lymphocytes # (Auto) 1.5 0.4-5.4 10 ^3/uL Monocytes # (Auto) 0.4 0-1.3 10 ^3/uL Eosinophils # (Auto) 0.1 0-0.8 10 ^3/uL Basophils # (Auto) 0.1 0-0.2 10 ^3/uL Nucleated Red Blood Cells 0.1 % Sodium Level 137 136-145 mmol/L Potassium Level 4.0 3.5-5.1 mmol/L Chloride Level 100 98-107 mmol/L Carbon Dioxide Level 26 20-31 mmol/L Anion Gap 11 5-15 Blood Urea Nitrogen < 5 L 9-23 mg/dL Creatinine 0.75 0.700-1.30 mg/dL Glomerular Filtration Rate Calc 121 >90 mL/min BUN/Creatinine Ratio 6.7 L 10.0-20.0 Serum Glucose 210 H 74-106 mg/dL Calcium Level 9.4 8.7-10.4 mg/dL Current Medications Medications (Trade) Dose Ordered Sig/Lizette Route Start Time Stop Time Status Last Admin Lorazepam (Ativan Inj) 1 mg ONCE ONCE IV 08/14/25 08:15 08/14/25 08:28 DC 08/14/25 09:34 Sodium Chloride 1,000 ml @ 1,000 mls/hr Q1H ONCE IV 08/14/25 08:15 08/14/25 09:14 DC 08/14/25 09:30 [place] [id number] Ph: [phone] DIAGNOSTIC IMAGING Diagnostic Imaging Report : [id number] Signed PATIENT: JAS MAYNARD ACCT: [id number] UNIT: [id number] : 1990 LOC: ER ROOM / BED: / AGE / SEX: 34 / M ADM STATUS: REG ER SERVICE 1 ORDERING PHYSICIAN: SANJANA FERNANDEZ MD PROCEDURE(s): CXRP - CHEST PORTABLE REASON: palpitations ORDER NUMBER(s): [id number], ACCESSION NUMBER(s): [id number] CHEST RADIOGRAPH Indication: palpitations Technique: Single frontal view of the chest was obtained COMPARISON: XY CHEST PORTABLE on DOS: 04/20/25, CHEST PORTABLE on DOS: 04/24/22 FINDINGS: Lines and Tubes: None Lungs: Clear Pleura: No effusion. No pneumothorax. Cardiomediastinal contours: Unremarkable Bones: Unremarkable IMPRESSION: No acute disease. ATED BY: ZELALEM GODINEZ MD DICTATED DATE/TIME: 08/14/25846 SIGNED BY: ZELALEM GODINEZ MD SIGNED DATE/TIME: 08/14/25846 CC: Time of 1ST Reevaluation: 08:40 Reevaluation 1ST: Unchanged Patient Education/Counseling: Diagnosis, Treatment, Prognosis Family Education/Counseling: No Family Present SEPSIS Sepsis Screen Date sepsis recognized/suspect: Aug 14, 2025 Time Sepsis recognized/suspect: 0732 Recent Procedure: No On Antibiotic Therapy: No Respiratory Rate >20: No Heart Rate >90: No Temp<36 C (96.8 F) or >38.3 C: No SBP <90 or MAP <65 mmHG: No New Acute Mental Status Change: No Is the patient on CPAP, BIPAP,: No Physician Orders Electrocardigram (08/14/25 07:41) Chest Portable (08/14/25 08:12) Troponin-I Hs (08/14/25 11:12) Electrocardigram (08/14/25 09:12) Electrocardigram (08/14/25 11:12) Vital Signs Date Time Temp Pulse Resp B/P (MAP) Pulse Ox O2 Delivery O2 Flow Rate FiO2 08/14/25 09:34 98.7 60 17 169/99 (122) 96 98.7 08/14/25 09:34 60 08/14/25 08:21 60 08/14/25 07:35 60 08/14/25 07:32 98.0 65 17 179/109 97 98.0 Laboratory Tests Test 08/14/25 08:35 White Blood Count 5.8 10^3/uL (4.4-10.8) Medications Medications Dose Ordered Sig/Lizette Route Start Time Stop Time Status Last Admin Dose Admin Lorazepam 1 mg ONCE ONCE IV 08/14/25 08:15 08/14/25 08:28 DC 08/14/25 09:34 Sodium Chloride 1,000 ml @ 1,000 mls/hr Q1H ONCE IV 08/14/25 08:15 08/14/25 09:14 DC 08/14/25 09:30 Departure 1 Departure Time of Disposition: 11:58 (Patient likely with benzodiazepine withdrawal. We will treat patient admit him for further workup) Impression: Primary Impression: Benzodiazepine withdrawal Additional Impressions: Anxiety Palpitations Disposition: ADMITTED INPATIENT Admit to: Tele Condition: Guarded Critical Care Note Critical Care Time?: Yes Critical care comment: Acute benzo withdrawal Authorized and Performed by: Sanjana Fernandez MD Total critical care time: Approximately 39 minutes Due to a high probability of clinically significant, life threatening deterioration, the patient required my highest level of preparedness to intervene emergently and I personally spent this critical care time directly and personally managing the patient. This critical care time included obtaining a history; examining the patient; pulse oximetry; ordering and review of studies; arranging urgent treatment with development of a management plan; evaluation of patient's response to treatment; frequent reassessment; and, discussions with other providers. This critical care time was performed to assess and manage the high probability of imminent, life-threatening deterioration that could result in multi-organ failure. It was exclusive of separately billable procedures and treating other patients and teaching time. Please see my other sections and the rest of the note for further information on patient assessment and treatment. Stability Stability form required: No Heart Score Heart Score: Heart Score Response (Comments) Value History N/A 0 EKG N/A 0 Age N/A 0 Risk Factors N/A 0 Troponin N/A 0 Total 0 I personally scribed for SANJANA FERNANDEZ MD ([email or web address]) on 08/14/25 at 08:21. Electronically submitted by Chichi Yost ([email or web address]). I personally scribed for SANJANA FERNANDEZ MD ([email or web address]) on 08/14/25 at 09:27. Electronically submitted by Chichi Yost ([email or web address]). SANJANA FERNANDEZ MD Aug 14, 2025 08:21
--- NOTE | 2025-08-14 08:50 | DVH ---
CHEST RADIOGRAPH Indication: palpitations Technique: Single frontal view of the chest was obtained COMPARISON: XY CHEST PORTABLE on DOS: 04/20/25, CHEST PORTABLE on DOS: 04/24/22 FINDINGS: Lines and Tubes: None Lungs: Clear Pleura: No effusion. No pneumothorax. Cardiomediastinal contours: Unremarkable Bones: Unremarkable IMPRESSION: No acute disease.
[2025-08-14 09:00] LABS: Hematocrit 47.1 % (41.0-53.0); Hemoglobin 15.6 g/dL (13.5-17.5); Mean Corpuscular Hemoglobin 30.2 pg (28.0-32.0); Mean Corpuscular Volume 90.9 fL (80.0-100.0); Nucleated Red Blood Cells % 0.1 %
[2025-08-14 09:14] LABS: Chloride 100 mmol/L (98-107); Potassium 4.0 mmol/L (3.5-5.1); Sodium 137 mmol/L (136-145)
[2025-08-14 09:15] LABS: Anion Gap 11 (5-15); Calcium 9.4 mg/dL (8.7-10.4); Carbon Dioxide 26 mmol/L (20-31)
[2025-08-14 09:21] LABS: BUN/Creatinine Ratio 6.7 (10.0-20.0); Blood Urea Nitrogen < 5 mg/dL (9-23); Glucose 210 mg/dL (74-106)
[2025-08-14] MEDS: SODIUM CHLORIDE 0.9% 1,000 ML IV ONE (09:30)
[2025-08-14] MEDS: LORazepam 2MG/ML-1ML VIAL IV ONE (09:34)
[2025-08-14] MEDS ORDERED: PATIENTS OWN MEDICATION (Alprazolam 1 TAB) PO PRN (13:00)
[2025-08-14] MEDS ORDERED: MORPHINE SULFATE INJ 2 MG/ml SYRG IV PRN (13:00)
[2025-08-14] MEDS ORDERED: NITROGLYCERIN 0.4 MG SL TAB SL PRN (13:00)
[2025-08-14] MEDS ORDERED: hydrALAZINE HCL 20 MG/ML VL IV PRN (13:00)
[2025-08-14] MEDS ORDERED: DOCUSATE SOD 100 MG CAP PO PRN (13:00)
[2025-08-14] MEDS ORDERED: DEXTROSE (50%) 50ML SYRG IV PRN (13:00)
[2025-08-14] MEDS ORDERED: ONDANSETRON HCL 4 MG/2 ML VIAL IV PRN (13:00)
[2025-08-14] MEDS ORDERED: LISI20TA56 PO (13:03)
[2025-08-14] MEDS ORDERED: METF-370 PO (13:03)
--- NOTE | 2025-08-14 13:05 | DVHHP2 ---
History of Present Illness Reason for Visit: Palpitations History of Present Illness Marlo Hassan is a 34-year-old male with medical history of hypertension, diabetes, depression, and anxiety, who came to the hospital due to palpitations. Patient states he has severe anxiety and depression that he takes daily Xanax daily for. He states he stopped taking his Xanax 2 days ago and he has been having racing thoughts, palpitations, and has not been able to sleep. He states he is depressed and stressed more than normal due to having abelnio next Thursday and he is afraid he may go to longterm again. Patient also states that he was drinking 2-3 beers a day, but he stopped about 1 week ago. Cardiovascular: HTN Psych: Anxiety, Depression Past Surgical History: Other (tumor removed from back of head) Smoke: No ALCOHOL: none (was drinking 2-3 drinks a day, quite 1 week ago) Drugs: None Lives: with Family Domestic Violence: Neg Review of Systems Constitutional: Yes: Other (racing thoughts); No: Fever, Chills, Sweats, Weakness, Malaise Eyes: No: Pain, Vision change, Conjunctivae inflammation, Eyelid inflammation, Other, Redness ENT: No: Ear pain, Ear discharge, Nose pain, Nose discharge, Nose congestion, Mouth pain, Mouth swelling, Throat pain, Throat swelling, Other Respiratory: No: Cough, Dry, Shortness of breath, SOB with excertion, Wheezing, Hemoptysis, Pleuritic Pain, Sputum, Wheezing, Other Cardiovascular: Palpitations; No: Chest Pain, Orthopnea, Paroxysmal Noc. Dyspnea, Edema, Lt Headedness, Other Gastrointestinal: No: Nausea, Vomiting, Abdominal Pain, Diarrhea, Constipation, Melena, Hematochezia, Other Genitourinary: No Dysuria, No Frequency, No Incontinence, No Hematuria, No Retention, No Other Musculoskeletal: No: other, neck pain, shoulder pain, arm pain, back pain, hand pain, leg pain, foot pain Skin: No: Rash, Lesions, Jaundice, Bruising, Other Neurological: No: Weakness, Numbness, Incoordination, Change in speech, Con fusion, Seizures, Other Allergies: Coded Allergies: NO KNOWN ALLERGIES (Unverified , 05/28/15) Medications Current Medications Medications Dose Ordered Sig/Lizette Route Start Time Stop Time Status Last Admin Dose Admin Acetaminophen/ Hydrocodone Bitart 1 tab Q4HP PRN PO 08/14/25 13:00 UNV Ondansetron HCl 4 mg Q4HP PRN IV 08/14/25 13:00 UNV Docusate Sodium 100 mg BIDPRN PRN PO 08/14/25 13:00 UNV Acetaminophen 650 mg Q6HP PRN PO 08/14/25 13:00 UNV Nitroglycerin 0.4 mg Q5MINP PRN SL 08/14/25 13:00 UNV Morphine Sulfate 2 mg Q30M PRN IV 08/14/25 13:00 UNV Exam Vital Signs Vital Signs Date Time Temp Pulse Resp B/P (MAP) Pulse Ox O2 Delivery O2 Flow Rate FiO2 08/14/25 09:34 98.7 60 17 169/99 (122) 96 98.7 General Appearance: Alert, Oriented X3, Cooperative, moderate distress HEENT: Atraumatic Respiratory: Clear to auscultation, Normal air movement Cardiovascular: Regular rate, Normal S1, Normal S2, No murmurs Abdominal: Normal bowel sounds, Soft, No tenderness Extremities: No clubbing, No cyanosis, No edema, Normal pulses, No tenderness/swelling Skin: No rashes, No breakdown, No significant lesion Neuro: Normal gait, Normal speech, Strength at 5/5 X4 ext Psych/Mental Status: Mental status NL, Mood NL Labs/Xrays Labs Test 08/14/25 09:44 08/14/25 08:35 Range/Units Troponin I High Sensitivity < 3 L </=54 ng/L White Blood Count 5.8 4.4-10.8 10^3/uL Red Blood Count 5.18 4.5-5.90 10^6/uL Hemoglobin 15.6 13.5-17.5 g/dL Hematocrit 47.1 41.0-53.0 % Mean Corpuscular Volume 90.9 80.0-100.0 fL Mean Corpuscular Hemoglobin 30.2 28.0-32.0 pg Mean Corpuscular Hemoglobin Concent 33.2 32.0-36.0 g/dL Red Cell Distribution Width 13.8 11.8-14.3 % Platelet Count 224 140-450 10^3/uL Mean Platelet Volume 9.1 6.9-10.8 fL Neutrophils (%) (Auto) 65.6 37.0-80.0 % Lymphocytes (%) (Auto) 25.1 10.0-50.0 % Monocytes (%) (Auto) 7.2 0.0-12.0 % Eosinophils (%) (Auto) 1.1 0.0-7.0 % Basophils (%) (Auto) 1.0 0.0-2.0 % Neutrophils # (Auto) 3.8 1.6-8.6 10 ^3/uL Lymphocytes # (Auto) 1.5 0.4-5.4 10 ^3/uL Monocytes # (Auto) 0.4 0-1.3 10 ^3/uL Eosinophils # (Auto) 0.1 0-0.8 10 ^3/uL Basophils # (Auto) 0.1 0-0.2 10 ^3/uL Nucleated Red Blood Cells 0.1 % Sodium Level 137 136-145 mmol/L Potassium Level 4.0 3.5-5.1 mmol/L Chloride Level 100 98-107 mmol/L Carbon Dioxide Level 26 20-31 mmol/L Anion Gap 11 5-15 Blood Urea Nitrogen < 5 L 9-23 mg/dL Creatinine 0.75 0.700-1.30 mg/dL Glomerular Filtration Rate Calc 121 >90 mL/min BUN/Creatinine Ratio 6.7 L 10.0-20.0 Serum Glucose 210 H 74-106 mg/dL Calcium Level 9.4 8.7-10.4 mg/dL CHEST RADIOGRAPH FINDINGS: Lines and Tubes: None Lungs: Clear Pleura: No effusion. No pneumothorax. Cardiomediastinal contours: Unremarkable Bones: Unremarkable IMPRESSION: No acute disease. SEPSIS Sepsis Screen Date sepsis recognized/suspect: Aug 14, 2025 Time Sepsis recognized/suspect: 0732 Recent Procedure: No On Antibiotic Therapy: No Respiratory Rate >20: No Heart Rate >90: No Temp<36 C (96.8 F) or >38.3 C: No SBP <90 or MAP <65 mmHG: No New Acute Mental Status Change: No Is the patient on CPAP, BIPAP,: No Physician Orders Electrocardigram (08/14/25 07:41) Chest Portable (08/14/25 08:12) Troponin-I Hs (08/14/25 11:12) Electrocardigram (08/14/25 09:12) Electrocardigram (08/14/25 11:12) Admit (08/14/25 12:51) Code Status (08/14/25 12:51) 2 Gm Sodium Diet (08/14/25 Lunch) Hydrocodone-Acet 5/325mg Tab ([place] 5/32 (08/14/25 13:00) Ondansetron Hcl (Zofran) (08/14/25 13:00) Docusate Sodium Capsule (Colace Capsule) (08/14/25 13:00) Complete Blood Count (08/15/25 04:00) Comprehensive Metabolic Panel (08/15/25 04:00) Condition: Serious (08/14/25 12:51) Acetaminophen Tablet (Tylenol Tablet) (08/14/25 13:00) Nitroglycerin Sublingual (Ntrostat Subli (08/14/25 13:00) Morphine Sulfate Injection (08/14/25 13:00) Stat Ekg For Chest Pain (08/14/25 12:51) Notify Md Of Changes From Base (08/14/25 12:51) Heel Burnisher For 24 Hours (08/14/25 12:51) Emergency Dysrhythmia Protocol (08/14/25 12:51) Rhythm Strips Once Every Shift (08/14/25 12:51) Oxygen By Nasal Cannula (08/14/25 12:51) Vital Signs Date Time Temp Pulse Resp B/P (MAP) Pulse Ox O2 Delivery O2 Flow Rate FiO2 08/14/25 09:34 98.7 60 17 169/99 (122) 96 98.7 08/14/25 09:34 60 08/14/25 08:21 60 08/14/25 07:35 60 08/14/25 07:32 98.0 65 17 179/109 97 98.0 Laboratory Tests Test 08/14/25 08:35 White Blood Count 5.8 10^3/uL (4.4-10.8) Medications Medications Dose Ordered Sig/Lizette Route Start Time Stop Time Status Last Admin Dose Admin Lorazepam 1 mg ONCE ONCE IV 08/14/25 08:15 08/14/25 08:28 DC 08/14/25 09:34 1 MG Sodium Chloride 1,000 ml @ 1,000 mls/hr Q1H ONCE IV 08/14/25 08:15 08/14/25 09:14 DC 08/14/25 09:30 1,000 MLS/HR Assessment/Plan Assessment/Plan Assessment: Benzodiazepine withdrawal, Hypertensive urgency, ETOH dependance, Diabetes, Anxiety, Depression, Plan: Admit to Tele, Consider cardiology consult if symptoms worsen, PRN anxiety medications, PRN antihypertensives, Accu checks Q AC&HS with sliding scale, Home medications reconciled, Plan discussed with: Patient My Orders Orders - KHADIJAH LOPEZ Procedure Category Date Status Time Admit ADMIT 08/14/25 Transmitted 12:51 Code Status CODE 08/14/25 Transmitted 12:51 2 Gm Sodium Diet DIET 08/14/25 Transmitted Lunch Hydrocodone-Acet PHA 08/14/25 Logged 5/325mg Tab ([place] 13:00 Ondansetron Hcl PHA 08/14/25 Logged (Zofran) 13:00 Docusate Sodium PHA 08/14/25 Logged Capsule (Colace 13:00 Complete Blood Count LAB 08/15/25 Verified 04:00 Comprehensive LAB 08/15/25 Verified Metabolic Panel 04:00 Condition: Serious [facility] 08/14/25 In Process 12:51 Acetaminophen Tablet [facility] 08/14/25 Logged (Tylenol Tablet) 13:00 Nitroglycerin PHA 08/14/25 Logged Sublingual (Ntrostat 13:00 Morphine Sulfate PHA 08/14/25 Logged Injection 13:00 Stat Ekg For Chest [facility] 08/14/25 In Process Pain 12:51 Notify Md Of Changes [facility] 08/14/25 In Process From Base 12:51 Heel Burnisher For [facility] 08/14/25 In Process 24 Hours 12:51 Emergency Dysrhythmia [facility] 08/14/25 In Process Protocol 12:51 Rhythm Strips Once [facility] 08/14/25 In Process Every Shift 12:51 Oxygen By Nasal RT 08/14/25 Transmitted Cannula 12:51 Date of Service: Aug 14, 2025 Billing Provider: KHADIJAH LOPEZ Common Visit Codes: [id number] INP/OBS CARE (MOD) KHADIJAH LOPEZ Aug 14, 2025 13:05
[2025-08-14] MEDS: LISINOPRIL 20 MG TAB PO ONE (13:48)
[2025-08-14] MEDS: ALPRAZolam 0.5 MG TAB PO PRN (13:48)
[2025-08-14 15:15] VITALS: BP 144/86; PULSE 70; RESP 18; TEMP 98.8; O2SAT 98
[2025-08-14] MEDS: HYDROcodone-ACET 5/325MG TAB PO PRN (15:22)
[2025-08-14 15:48] VITALS: PULSE 68; RESP 18; O2SAT 98
[2025-08-14 15:52] VITALS: BP 144/86; PULSE 70; RESP 18; TEMP 98.8; O2SAT 98
[2025-08-14] MEDS: ACCU-CHEK COMFORT CURVE STRIP VI SCH (16:32)
[2025-08-14] MEDS: InsuLIN REG 1unit/0.01ml Soln (100units/ml) SC SCH ×2 (16:38→21:59)
[2025-08-14 17:00] VITALS: BP 147/80; PULSE 68; RESP 18; TEMP 98.7; O2SAT 98
[2025-08-15] VITALS (7 sets, daily range): BP systolic 106–133; BP diastolic 59–78; PULSE 54–67; RESP 16–19; TEMP 97.1–98.8; O2SAT 94–97
[2025-08-15 05:19] LABS: Hematocrit 42.5 % (41.0-53.0); Hemoglobin 14.2 g/dL (13.5-17.5); Mean Corpuscular Hemoglobin 30.4 pg (28.0-32.0); Mean Corpuscular Volume 90.6 fL (80.0-100.0); Nucleated Red Blood Cells % 0.1 %
[2025-08-15 05:40] LABS: Alkaline Phosphatase 59 U/L (46-116); Anion Gap 9 (5-15); BUN/Creatinine Ratio 10.1 (10.0-20.0); Calcium 9.2 mg/dL (8.7-10.4); Carbon Dioxide 28 mmol/L (20-31); Chloride 103 mmol/L (98-107); Potassium 4.1 mmol/L (3.5-5.1); Sodium 140 mmol/L (136-145); Total Protein 7.3 g/dL (5.7-8.2)
[2025-08-15 05:41] LABS: Albumin 4.4 g/dL (3.2-4.8); Bilirubin, Total 0.8 mg/dL (0.2-1.0)
[2025-08-15 05:42] LABS: Blood Urea Nitrogen 8 mg/dL (9-23); Glucose 163 mg/dL (74-106)
[2025-08-15 05:43] LABS: Alanine Aminotransferase 224 U/L (7-40)
[2025-08-15] MEDS: LISINOPRIL 20 MG TAB PO SCH (09:44)
[2025-08-15] MEDS: hydroCHLOROthiazide 25 MG TAB PO SCH (09:44)
--- NOTE | 2025-08-15 11:59 | DVHSR ---
APPROVED REPORT EXAM: Two-dimensional and M-mode echocardiogram with Doppler and color Doppler. Blood Pressure: 169/99 mmHg INDICATION Hypertensive urgency RISK FACTORS Obesity: Height: 5'8", Weight: 198 DIMENSIONS LVDd 4.7 (3.8-5.7cm) LA (2D) 3.5 (1.9-4.0cm) Aortic Root 3.1 (2.0-3.7cm) LVDs 3.0 (2.5-4.0cm) LA (MM) (1.9-4.0cm) Aortic Cusp Exc 2.1 (1.5-2.0cm) EF (%) 55.0 (55-70%) Rt. Atrium 3.6 (1.9-4.0cm) Asc. Aorta cm IVSd 1.1 (0.7-1.1cm) RV (D) (1.8-2.4cm) PWd 0.8 (0.7-1.1cm) Mitral Valve Mitral Mitral Stenosis E wave 1.10m/s MV Mean GR. mmHg A wave 0.71m/s MV Peak GR. mmHg E/A ratio 1.5 2D MVA cm2 DECEL Time 185ms PRESS 1/2 Time ms Aortic Valve Aortic Valve Aortic Stenosis V1 1.40m/s AO Mean GR. 6mmHg V2 1.71m/s AO Peak GR. 12mmHg LVOT Diameter 2.0 (1.8-2.4cm) Doppler ZOILA 2.57cm2 Pulmonic Valve V2 1.59m/s Tricuspid Valve TR Velocity 2.67m/s RVSP 31mmHg Conclusion lvef 60% normal lvef normal rv function normal atria no severe valve abnormalities noted normal pericardium
--- NOTE | 2025-08-15 14:29 | DVHPN2 ---
Subjective Patient continues to report having severe anxiety Reviewed: Care Plan, H&P, Labs, Medications Changes from previous H/P or p: No Changes Eyes: No Pain, No Vision change, No Conjunctivae inflammation, No Eyelid inflammation, No Other, No Redness ENT: No Ear pain, No Ear discharge, No Nose pain, No Nose discharge, No Nose congestion, No Mouth pain, No Mouth swelling, No Throat pain, No Throat swelling, No Other Cardiovascular: No Chest Pain; Palpitations; No Orthopnea, No Paroxysmal Noc. Dyspnea, No Edema, No Lt Headedness, No Other Respiratory: No Cough, No Dry, No Shortness of breath, No SOB with excertion, No Wheezing, No Hemoptysis, No Pleuritic Pain, No Sputum, No Other Gastrointestinal: No Nausea, No Vomiting, No Abdominal Pain, No Diarrhea, No Constipation, No Melena, No Hematochezia, No Other Genitourinary: No Dysuria, No Frequency, No Incontinence, No Hematuria, No Retention, No Other Musculoskeletal: No other, No neck pain, No shoulder pain, No arm pain, No back pain, No hand pain, No leg pain, No foot pain Skin: No Rash, No Lesions, No Jaundice, No Bruising, No Other Objective Vitals Vital Signs Date Time Temp Pulse Resp B/P (MAP) Pulse Ox O2 Delivery O2 Flow Rate FiO2 08/15/25 13:00 98.5 65 18 133/73 (93) 96 98.5 08/15/25 08:00 Room Air* 0 21 General Appearance: Alert, Oriented X3, Cooperative, No acute distress HEENT: Atraumatic, PERRLA Neck: Carotid Bruits [place] Lungs: Clear to auscultation, Normal air movement Cardiovascular: Normal S1, Normal S2 Abdomen: Normal bowel sounds, Soft, No tenderness, No hepatospenomegaly Musculoskeletal: Normal sensory function, Normal motor function Neuro: Normal speech Skin: Dry, Intact Psych/Mental Status: Mental status NL, Mood NL Medications Current Medications Medications Dose Ordered Sig/Lizette Route Start Time Stop Time Status Last Admin Dose Admin Acetaminophen/ Hydrocodone Bitart 1 tab Q4HP PRN PO 08/14/25 13:00 08/15/25 09:45 1 TAB Ondansetron HCl 4 mg Q4HP PRN IV 08/14/25 13:00 Docusate Sodium 100 mg BIDPRN PRN PO 08/14/25 13:00 Acetaminophen 650 mg Q6HP PRN PO 08/14/25 13:00 Nitroglycerin 0.4 mg Q5MINP PRN SL 08/14/25 13:00 Morphine Sulfate 2 mg Q30M PRN IV 08/14/25 13:00 Diagnostic Test (Pha) 1 strip ACHS 08/14/25 17:00 08/15/25 12:44 1 STRIP Insulin Human Regular HS SC 08/14/25 22:00 08/14/25 21:59 3 UNITS Insulin Human Regular AC SC 08/14/25 17:00 08/15/25 12:48 6 UNITS Dextrose 50 ml UD PRN IV 08/14/25 13:00 Hydralazine HCl 10 mg Q6HP PRN IV 08/14/25 13:00 Hydrochlorothiazide 25 mg DAILY PO 08/15/25 10:00 08/15/25 09:44 25 MG Patient Own Medication 1 tab Q12HP PRN PO 08/14/25 13:00 UNV Lisinopril 20 mg DAILY PO 08/15/25 10:00 08/15/25 09:44 20 MG Alprazolam 1 mg Q12HP PRN PO 08/14/25 13:30 08/15/25 02:48 1 MG Metformin HCl 500 mg BIDWM PO 08/15/25 18:00 UNV Laboratory Results Laboratory Tests 08/15/25 04:51 Chemistry Test 08/15/25 04:51 Albumin 4.4 g/dL (3.2-4.8) Calcium Level 9.2 mg/dL (8.7-10.4) Total Protein 7.3 g/dL (5.7-8.2) LFT Test 08/15/25 04:51 Alanine Aminotransferase (ALT) 224 U/L (7-40) H Alkaline Phosphatase 59 U/L (46-116) Aspartate Amino Transferase (AST) 265 U/L (13-40) H Total Bilirubin 0.8 mg/dL (0.2-1.0) Labs and/or images reviewed: Labs reviewed by me, Image(s) reviewed by me Assessment/Plan Assessment/Plan Impression: -ACS ruled out -severe anxiety disorder -diabetes mellitus -obesity -accelerated hypertension Plan: -continue antihypertensives -regular insulin sliding scale -start metformin 500 mg p.o. b.i.d. -continue Xanax 1 mg p.o. b.i.d. -psychiatry consultation -transferred to Medical/Surgical unit. Total time spent with patient discussing and formulating plan of care: 35 minutes. This medical document was created using an electronic medical record system with [employer] dictation system. Although this document has been carefully reviewed, there may still be some phonetic and typographical errors. These areas are purely typographical due to imperfections of the software programs, and do not reflect any compromise in the patient's medical care. Plan discussed with: Patient, Other (RN) My Orders Orders - ADRIAN SALAS NP Procedure Category Date Status Time Drug Screen LAB 08/15/25 Logged 12:51 Metformin PHA 08/15/25 Logged Hydrochloride 18:00 Consistent DIET 08/15/25 Transmitted Carb(Ccho)Diabetes Dinner Transfer Orders XFER 08/15/25 Transmitted 14:23 *Tele Psych Consult CONS 08/15/25 Transmitted 14:23 Drug Screen LAB 08/15/25 Verified 14:26 Date of Service: Aug 15, 2025 Billing Provider: ADRIAN SALAS NP Common Visit Codes: [id number] INP/OBS CARE(HIGH) ADRIAN SALAS NP Aug 15, 2025 14:29
[2025-08-15] MEDS: ACETAMINOPHEN 325 MG TAB PO PRN (20:23)
[2025-08-16 01:00] VITALS: BP 99/58; PULSE 55; RESP 18; TEMP 97.5; O2SAT 96
[2025-08-16 05:00] VITALS: BP 103/61; PULSE 58; TEMP 97.3
[2025-08-16 08:40] VITALS: BP 119/83; PULSE 61; RESP 18; TEMP 97.7; O2SAT 97
[2025-08-16 12:09] LABS: Amphetamine Screen, Urine Neg (NEGATIVE); Barbiturate Scree,Urine Neg (NEGATIVE); Benzodiazephine Screen, Urine Pos (NEGATIVE); Cannabinoid Screen, Urine Neg (NEGATIVE); Cocaine Screen, Urine Neg (NEGATIVE); Opiate Scree,Urine Neg (NEGATIVE); Phencyclidine Screen, Urine Neg (NEGATIVE)
[2025-08-16 12:45] VITALS: BP 141/88; PULSE 74; RESP 18; TEMP 98.1; O2SAT 96
[2025-08-16 16:41] VITALS: BP 135/83; PULSE 67; RESP 17; TEMP 97.7; O2SAT 96
[2025-08-16] MEDS ORDERED: ALPR0.5T7 PO (16:49)
--- NOTE | 2025-08-16 16:54 | DVHDS2 ---
Discharge Summary Date of Admission Aug 14, 2025 at 12:51 Date of Discharge: Aug 16, 2025 Admitting Diagnosis Chest pain, rule out ACS Labs/Diagnostic Data: Laboratory Results Test 08/16/25 12:11 08/15/25 11:35 08/15/25 04:51 08/14/25 13:25 POC Glucose 189 mg/dl (70-106) Urine Opiates Screen Neg (NEGATIVE) Urine Fentanyl Screen Neg (NEGATIVE) Urine Barbiturates Screen Neg (NEGATIVE) Urine Phencyclidine Screen Neg (NEGATIVE) Urine Amphetamines Screen Neg (NEGATIVE) Urine Benzodiazepines Screen Pos (NEGATIVE) Urine Cocaine Screen Neg (NEGATIVE) Urine Cannabinoids Screen Neg (NEGATIVE) White Blood Count 6.3 10^3/uL (4.4-10.8) Red Blood Count 4.69 10^6/uL (4.5-5.90) Hemoglobin 14.2 g/dL (13.5-17.5) Hematocrit 42.5 % (41.0-53.0) Mean Corpuscular Volume 90.6 fL (80.0-100.0) Mean Corpuscular Hemoglobin 30.4 pg (28.0-32.0) Mean Corpuscular Hemoglobin Concent 33.5 g/dL (32.0-36.0) Red Cell Distribution Width 13.7 % (11.8-14.3) Platelet Count 198 10^3/uL (140-450) Mean Platelet Volume 8.7 fL (6.9-10.8) Neutrophils (%) (Auto) 50.4 % (37.0-80.0) Lymphocytes (%) (Auto) 37.7 % (10.0-50.0) Monocytes (%) (Auto) 8.9 % (0.0-12.0) Eosinophils (%) (Auto) 2.1 % (0.0-7.0) Basophils (%) (Auto) 0.9 % (0.0-2.0) Neutrophils # (Auto) 3.2 10 ^3/uL (1.6-8.6) Lymphocytes # (Auto) 2.4 10 ^3/uL (0.4-5.4) Monocytes # (Auto) 0.6 10 ^3/uL (0-1.3) Eosinophils # (Auto) 0.1 10 ^3/uL (0-0.8) Basophils # (Auto) 0.1 10 ^3/uL (0-0.2) Nucleated Red Blood Cells 0.1 % Sodium Level 140 mmol/L (136-145) Potassium Level 4.1 mmol/L (3.5-5.1) Chloride Level 103 mmol/L (98-107) Carbon Dioxide Level 28 mmol/L (20-31) Anion Gap 9 (5-15) Blood Urea Nitrogen 8 mg/dL (9-23) Creatinine 0.79 mg/dL (0.700-1.30) Glomerular Filtration Rate Calc 120 mL/min (>90) BUN/Creatinine Ratio 10.1 (10.0-20.0) Serum Glucose 163 mg/dL (74-106) Calcium Level 9.2 mg/dL (8.7-10.4) Total Bilirubin 0.8 mg/dL (0.2-1.0) Aspartate Amino Transferase (AST) 265 U/L (13-40) Alanine Aminotransferase (ALT) 224 U/L (7-40) Alkaline Phosphatase 59 U/L (46-116) Total Protein 7.3 g/dL (5.7-8.2) Albumin 4.4 g/dL (3.2-4.8) Troponin I High Sensitivity < 3 ng/L (</=54) Test 08/14/25 08:35 Hemoglobin A1c 10.1 % A1C (<5.7) Other Laboratory Tests 08/15/25 04:51 Brief Hx & Hospital Course: History of Present Illness Marlo Hassan is a 34-year-old male with medical history of hypertension, diabetes, depression, and anxiety, who came to the hospital due to palpitations. Patient states he has severe anxiety and depression that he takes daily Xanax daily for. He states he stopped taking his Xanax 2 days ago and he has been having racing thoughts, palpitations, and has not been able to sleep. He states he is depressed and stressed more than normal due to having abelino next Thursday and he is afraid he may go to longterm again. Patient also states that he was drinking 2-3 beers a day, but he stopped about 1 week ago. Course of hospitalization: Patient had echocardiogram which was unremarkable. Troponins negative x3. Patient's blood pressure and blood sugars has been stable in the hospital. He was restarted on alprazolam 1 mg p.o. b.i.d. as needed for anxiety. Today, the patient has been without chest pain, ambulating to the bathroom and able to take a shower and perform ADLs without any issues. Patient was also witnessed to be watching TV on his phone, without any complaints. Patient states that his anxiety has improved. He will be discharged home with a prescription for Xanax 0.5 mg p.o. b.i.d. as needed for anxiety, one week supply. An appointment has been made with the discharge Clinic, and he has also been instructed to follow up with his PCP and obtain referral to Psychiatry for his anxiety disorder. Patient was agreeable with discharge plan. All questions answered. Physical examination General: Alert and Oriented x3. No acute distress. Well-nourished. Eyes: EOMI. Anicteric. HENT: Moist mucous membranes. Lungs: Clear to auscultation bilaterally. No accessory muscle use. Cardiovascular: Regular rate and rhythm. No murmur. No JVD. Abdomen: Soft, non-tender and non-distended. No palpable masses. Extremities: No edema. Non-tender. Skin: No rashes or lesions. Warm. Neurologic: No focal neurological deficits. CN II-XII grossly intact, but not individually tested. Psychiatric: Cooperative. Appropriate mood and affect. Total time spent with patient discussing and formulating plan of care: 35 minutes. This medical document was created using an electronic medical record system with [employer] dictation system. Although this document has been carefully reviewed, there may still be some phonetic and typographical errors. These areas are purely typographical due to imperfections of the software programs, and do not reflect any compromise in the patient's medical care. Condition at Discharge: Fair Final Diagnosis/Problems List Chest pain secondary to anxiety disorder -ACS ruled out -severe anxiety disorder -diabetes mellitus -obesity -accelerated hypertension Discharge Disposition: Home Discharge Instruct/Medications Diet: Regular Activity: No Restrictions, As Tolerated Follow Up/Referral: Follow up with discharge Clinic within 72 hours Follow up with PCP within one week. Obtain referral to see outpatient psychiatrist for anxiety disorder Medications: Xanax 0.5 mg p.o. b.i.d. for anxiety Scheduled Cholecalciferol (Vitamin D3), 1 CAP PO QWEEKLY, (Reported) Hctz (Hydrochlorothiazide), 1 TAB PO DAILY, (Reported) Lisinopril (Lisinopril), 1 TAB PO DAILY, (Reported) Metformin Hydrochloride (Metformin Hcl), 1 TAB PO BID, (Reported) Scheduled PRN Alprazolam (Alprazolam), 1 TAB PO Q12HP PRN Alprazolam (Alprazolam), 1 TAB PO BID PRN Discontinued Medications Acetaminophen (Acetaminophen), 500 MG PO Q6HP PRN Bacitracin (Bacitracin Oint), 1 APPLIC TOP BID Ciprofloxacin Hcl (Cipro), 1 TAB PO BID Lisinopril (Lisinopril), 1 TAB PO DAILY, (Reported) 36 Discharge Statement: "Patient was advised to return to the ER or call 911 if any headaches, dizziness, shortness of breath, chest pain, abdominal pain, bleeding, fevers, or worsening of medical condition. Patient was counseled about treatment plan, medications, possible side effects, patientverbalized understanding. All questions were answered to the best of my ability. This discharge took greater then 30 minutes in planning, reviewing documentation, counseling the patient, and discussing with other team members." ASSESSMENT ASSESSMENT Assessment Chest pain secondary to anxiety disorder Date of Service: Aug 16, 2025 Billing Provider: ADRIAN SALAS NP Common Visit Codes: [id number] DISCH DAY >30min ADRIAN SALAS NP Aug 16, 2025 16:54
== END 2025-08-16 19:00 | disposition home or self-care (01) | DRG 203 ==
LOC: ER 07:32 → OVERFLOW 12:51 → TELE-WESTW 08-15 19:02 → WEST WING 08-16 02:40
PROVIDERS: ADMIT Nurse Practitioner Acute Care; ATTEND Nurse Practitioner Acute Care
DX: R07.89 Other chest pain (principal); I16.0 Hypertensive urgency; E11.9 Type 2 diabetes mellitus without complications; F13.239 Sedative, hypnotic or anxiolytic dependence with withdrawal, unspecified; F32.A Depression, unspecified; J45.909 Unspecified asthma, uncomplicated; E66.9 Obesity, unspecified; I10 Essential (primary) hypertension; F41.9 Anxiety disorder, unspecified; F17.210 Nicotine dependence, cigarettes, uncomplicated; Z68.33 Body mass index [BMI] 33.0-33.9, adult
CPT/HCPCS: 36415; 71045; 80048; 80053; 80307; 82962; 83036; 84484; 85025; 93005; 93306; 96361; 96374; 99291; G0378; J1815

== ENCOUNTER 2025-09-24 14:44 | Inpatient (IN) | payer MEDICAID ==
[~2025-09-24] VITALS: Ht 172.7 cm; Wt 107.3 kg
[~2025-09-24 14:44] MED LIST changes: -ACET500T58 PO; +ALPR0.5T7 PO; -BAC09TP TOP; -CIPR-173 PO; +LISI20TA56 PO; -LISI40TA16 PO; +METF-370 PO
[2025-09-24] MEDS: SODIUM CHLORIDE 0.9% 1,000 ML IV ONE ×2 (15:30→17:30)
[2025-09-24 16:09] LABS: Hematocrit 43.6 % (41.0-53.0); Hemoglobin 14.4 g/dL (13.5-17.5); Mean Corpuscular Hemoglobin 29.7 pg (28.0-32.0); Mean Corpuscular Volume 89.8 fL (80.0-100.0); Nucleated Red Blood Cells % 0.1 %
[2025-09-24 16:14] LABS: Chloride 99 mmol/L (98-107); Potassium 3.7 mmol/L (3.5-5.1)
[2025-09-24 16:15] LABS: Anion Gap 13 (5-15); Carbon Dioxide 22 mmol/L (20-31)
[2025-09-24 16:16] LABS: Calcium 9.2 mg/dL (8.7-10.4)
[2025-09-24 16:21] LABS: BUN/Creatinine Ratio 8.4 (10.0-20.0)
[2025-09-24 16:23] LABS: Sodium 134 mmol/L (136-145)
[2025-09-24 16:24] LABS: Blood Urea Nitrogen 8 mg/dL (9-23); Glucose 272 mg/dL (74-106)
--- NOTE | 2025-09-24 16:51 | ED.PDOC ---
General HPI Comments 34 y/o M, presents to the ED for CC of groin pain. Patient reports, to have left-sided groin pain with a lesion that swelled up yesterday (09/23/25). Patient endorses, to have intermittent fever; patient temperature read at 97.6. Patient denies chills, sweats, or penile discharge. Chief Complaint: Pelvic Pain Time Seen by MD: 16:10 Primary Care Provider: None Reviewed notes: Nurses Notes, Medications, Allergies Allergies: Coded Allergies: NO KNOWN ALLERGIES (Unverified , 05/28/15) Home Meds Active Scripts Alprazolam (Alprazolam) 0.5 Mg Tab, 1 TAB PO BID PRN for 7 Days, #14 TAB Prov:ADRIAN SALAS NP 08/16/25 Alprazolam (Alprazolam) 1 Mg Tab, 1 TAB PO Q12HP PRN for 7 Days, #10 TAB Prov:ROSMERY ALVARADO MD 04/24/22 Reported Medications Metformin Hydrochloride (Metformin Hcl) 500 Mg Tab, 1 TAB PO BID, #60 TAB 3 Refills 08/14/25 Lisinopril (Lisinopril) 20 Mg Tab, 1 TAB PO DAILY, #30 TAB 5 Refills 08/14/25 Cholecalciferol (Vitamin D3) 50,000 Unit Cap, 1 CAP PO QWEEKLY 04/20/25 Hctz (Hydrochlorothiazide) 25 Mg Tab, 1 TAB PO DAILY 04/20/25 Information Source: Patient Mode of Arrival: EMS Severity: Moderate Timing: Days Duration: Since onset Prehospital treatment: None Onset: Spontaneous History of: None Penile discharge: None associated signs and symptoms: None Past Medical History PAST MEDICAL HISTORY: Anxiety, Asthma, DM, HTN Surgical History: Denies all surgeries Family History Family History: Unknown Social History Smoker: Cigarettes, Less Than 1 Pack/Day Alcohol: Occasionally Drugs: Marijuana Lives In: Home Constitutional: denies: chills, diaphoresis, fatigue, fever, malaise, sweats, weakness, others EENTM: denies: blurred vision, double vision, ear bleeding, ear discharge, ear drainage, ear pain, ear ringing, eye pain, eye redness, hearing loss, mouth pain, mouth swelling, nasal discharge, nose bleeding, nose congestion, nose pain, photophobia, tearing, throat pain, throat swelling, voice changes, others Respiratory: denies: cough, hemoptysis, orthopnea, SOB at rest, shortness of breath, SOB with excertion, stridor, wheezing, others Cardiovascular: denies: chest pain, dizzy spells, diaphoresis, Dyspnea on exertion, edema, irregular heart beat, left arm pain, lightheadedness, palpitations, PND, syncope, others Gastrointestinal: denies: abdomen distended, abdominal pain, blood streaked bowels, constipated, diarrhea, dysphagia, difficulty swallowing, hematemesis, melena, nausea, poor appetite, poor fluid intake, rectal bleeding, rectal pain, vomiting, others Genitourinary: denies: burning, dysuria, flank pain, frequency, hematuria, incontinence, penile discharge, penile sore, pain, testicle pain, testicle swelling, urgency, others Neurological: denies: dizziness, fainting, headache, left sided numbness, left sided weakness, numbness, paresthesia, pre-existing deficit, right sided numbness, right sided weakness, seizure, speech problems, tingling, tremors, weakness, others Musculoskeletal: denies: back pain, gout, joint pain, joint swelling, muscle pain, muscle stiffness, neck pain, others Integumetry: denies: bruises, change in color, change in hair/nails, dryness, laceration, lesions, lumps, rash, wounds, others Allergic/Immunocompromised: denies: Difficulty Healing, Frequent Infections, Hives, Itching, others Hematologic/Lymphatic: denies: anemia, blood clots, easy bleeding, easy bruising, swollen glands, others Endocrine: denies: excessive hunger, excessive sweating, excessive thirst, excessive urination, flushing, intolerance to cold, intolerance to heat, unexplained weight gain, unexplained weight loss, others Psychiatric: denies: anxiety, bipolar disorder, depression, hopeless, panic disorder, schizophrenia, sleepless, suicidal, others All Other Systems: Reviewed and Negative Physical Exam General Appearance: Moderate Distress HEENT: Normal ENT Inspection, Pharynx Normal, TMs Normal Neck: Full Range of Motion, Non-Tender, Normal, Normal Inspection Respiratory: Chest Non-Tender, Lungs Clear, No Accessory Muscle Use, No Respiratory Distress, Normal Breath Sounds Cardiovascular: No Edema, No JVD, No Murmur, No Gallop, Normal Peripheral Pulses, Regular Rate/Rhythm Breast Exam: Deferred Gastrointestinal: No Organomegaly, Non Tender, No Pulsatile Mass, Normal Bowel Sounds, Soft Genitalia: Deferred Pelvic: Deferred Rectal: Deferred Extremities: No calf tenderness, Normal capillary refill, Normal inspection, Normal range of motion, Non-tender, No pedal edema Musculoskeletal : Apperance: Normal Neurologic: Alert, water sponger II-XII nml as Tested, No Motor Deficits, Normal Affect, Normal Mood, No Sensory Deficits Cerebellar Function: NOT DONE Reflexes: NOT DONE Skin: Dry, Normal Color, Warm, Wounds (Suprapubic redness with swelling) Peripheral Pulses: 3+ Radial (R), 3+ Radial (L) Lymphatic: No Adenopathy Was a procedure done? Was a procedure done?: No Differential Diagnosis Kidney stone (Female): N/A Penile/Scrotal: Epidiymitis, STD, Hydrocele X-Ray, Labs, Meds, VS Vital Signs Date Time Temp Pulse Resp B/P (MAP) Pulse Ox O2 Delivery O2 Flow Rate FiO2 09/24/25 16:59 98.6 90 16 137/92 (107) 97 98.6 09/24/25 14:54 97.6 98 16 142/89 98 97.6 Lab Test 09/24/25 15:41 Range/Units White Blood Count 16.4 H 4.4-10.8 10^3/uL Red Blood Count 4.86 4.5-5.90 10^6/uL Hemoglobin 14.4 13.5-17.5 g/dL Hematocrit 43.6 41.0-53.0 % Mean Corpuscular Volume 89.8 80.0-100.0 fL Mean Corpuscular Hemoglobin 29.7 28.0-32.0 pg Mean Corpuscular Hemoglobin Concent 33.0 32.0-36.0 g/dL Red Cell Distribution Width 13.2 11.8-14.3 % Platelet Count 244 140-450 10^3/uL Mean Platelet Volume 9.3 6.9-10.8 fL Neutrophils (%) (Auto) 77.5 37.0-80.0 % Lymphocytes (%) (Auto) 13.6 10.0-50.0 % Monocytes (%) (Auto) 7.8 0.0-12.0 % Eosinophils (%) (Auto) 0.7 0.0-7.0 % Basophils (%) (Auto) 0.4 0.0-2.0 % Neutrophils # (Auto) 12.7 H 1.6-8.6 10 ^3/uL Lymphocytes # (Auto) 2.2 0.4-5.4 10 ^3/uL Monocytes # (Auto) 1.3 0-1.3 10 ^3/uL Eosinophils # (Auto) 0.1 0-0.8 10 ^3/uL Basophils # (Auto) 0.1 0-0.2 10 ^3/uL Nucleated Red Blood Cells 0.1 % Sodium Level 134 L 136-145 mmol/L Potassium Level 3.7 3.5-5.1 mmol/L Chloride Level 99 98-107 mmol/L Carbon Dioxide Level 22 20-31 mmol/L Anion Gap 13 5-15 Blood Urea Nitrogen 8 L 9-23 mg/dL Creatinine 0.95 0.700-1.30 mg/dL Glomerular Filtration Rate Calc 108 >90 mL/min BUN/Creatinine Ratio 8.4 L 10.0-20.0 Serum Glucose 272 H 74-106 mg/dL Lactic Acid Level 0.8 0.4-2.0 mmol/L Calcium Level 9.2 8.7-10.4 mg/dL Patient alert pain Has a wound in the suprapubic region. Red. Has not spread to the testicles. Establish intravenous access. Was given fluids. Was given Zosyn. Was given clindamycin. Surgical consultation. Serum glucose elevated. Not Alesha's gangrene. Could lead to severe infection. Explained to the patient. Continue monitoring. Time of 1ST Reevaluation: 16:40 Reevaluation 1ST: Unchanged Patient Education/Counseling: Diagnosis, Treatment Family Education/Counseling: No Family Present SEPSIS Sepsis Screen Date sepsis recognized/suspect: Sep 24, 2025 Time Sepsis recognized/suspect: 1448 Recent Procedure: No On Antibiotic Therapy: No Respiratory Rate >20: No Heart Rate >90: Yes Temp<36 C (96.8 F) or >38.3 C: No SBP <90 or MAP <65 mmHG: No New Acute Mental Status Change: No Is the patient on CPAP, BIPAP,: No Physician Orders Blood Culture (09/24/25 15:28) Sodium Chloride 0.9% (09/24/25 15:30) Vital Signs Date Time Temp Pulse Resp B/P (MAP) Pulse Ox O2 Delivery O2 Flow Rate FiO2 09/24/25 16:59 98.6 90 16 137/92 (107) 97 98.6 09/24/25 14:54 97.6 98 16 142/89 98 97.6 Laboratory Tests Test 09/24/25 15:41 Lactic Acid Level 0.8 mmol/L (0.4-2.0) White Blood Count 16.4 10^3/uL (4.4-10.8) H Departure 1 Departure Time of Disposition: 17:08 Impression: Primary Impression: Uncontrolled diabetes mellitus Qualified Codes: E13.65 - Other specified diabetes mellitus with hyperglycemia Additional Impression: Cellulitis Qualified Codes: L03.90 - Cellulitis, unspecified Disposition: ADMITTED INPATIENT Admit to: Med Surg Condition: Guarded Critical Care Note Critical Care Time?: Yes (90 min-critical care time only) Stability Stability form required: No Heart Score Heart Score: Heart Score Response (Comments) Value History N/A 0 EKG N/A 0 Age N/A 0 Risk Factors N/A 0 Troponin N/A 0 Total 0 I personally scribed for HENRY AVALOS MD ([email or web address]) on 09/24/25 at 16:51. Electronically submitted by Brianan Posey ([employer]). I personally scribed for HENRY AVALOS MD ([email or web address]) on 09/24/25 at 16:52. Electronically submitted by Brianna Posey ([employer]). I personally scribed for HENRY AVALOS MD ([email or web address]) on 09/24/25 at 16:57. Electronically submitted by Brianna Posey ([employer]). HENRY AVALOS MD Sep 24, 2025 16:51
[2025-09-24] MEDS: CLINDAMYCIN 600MG IV 50 ML IV ONE (17:30)
[2025-09-24] MEDS: PIPERACILLIN-TAZOB 3.375GM 100 ML IV ONE (18:42)
--- NOTE | 2025-09-24 22:07 | DVH ---
EXAM: CT CT AB PEL WO CON-NO ORAL OR IV INDICATION: Inguinal hernia TECHNIQUE: Volumetric multidetector CT images of the abdomen and pelvis were obtained without contrast. All CT scans at this facility use dose modulation, iterative reconstruction, and/or weight based dosing when appropriate to reduce radiation dose to as low as reasonably achievable. COMPARISON: None FINDINGS: [LOWER CHEST]: The partially visualized lung bases are clear without a pleural effusion. The cardiac size is normal without pericardial effusion. [LIVER]: Normal hepatic size without suspicious focal lesion. [GALLBLADDER AND BILIARY TREE]: No cholelithiasis. [SPLEEN]: Unremarkable. [PANCREAS]: Unremarkable. [ADRENAL GLANDS]: Unremarkable [KIDNEYS]: No hydronephrosis. No nephroureterolithiasis. No suspicious focal lesion. [BLADDER]: Unremarkable for the degree distention. [REPRODUCTIVE ORGANS]: Unremarkable. [BOWEL/MESENTERY]: Stomach is normal. No CT evidence of bowel obstruction. Normal appendix. [ASCITES]: Absent [LYMPHADENOPATHY]: No pathologically enlarged lymph nodes by CT size criteria [VASCULATURE]: No aneurysmal dilatation. [ABDOMINAL WALL]: No definitive visualized inguinal hernia allowing for limitation given the majority of the inguinal canal is outside of the field of view. Unremarkable. [MUSCULOSKELETAL]: No acute fracture or aggressive focal osseous lesion. Multifocal degenerative change of the visualized spine. [OTHER]: None IMPRESSION: 1. No definitive visualized inguinal hernia allowing for limitation given the majority of the inguinal canal is outside of the field of view.
[2025-09-24] MEDS ORDERED: ONDANSETRON HCL 4 MG/2 ML VIAL IV PRN (23:00)
[2025-09-24] MEDS ORDERED: DEXTROSE (50%) 50ML SYRG IV PRN (23:00)
[2025-09-24 23:38] LABS: INR 1.04 (0.9-1.15); Partial Thromboplastin Time 29.6 SEC (24.5-34.5); Prothrombin Time 11.0 sec (9.3-11.8)
--- NOTE | 2025-09-24 23:47 | DVH ---
EXAM: US LEFT LOWER EXTREMITY ULTRASOUN DATE OF SERVICE: 09/24/2025 11:09 PM ORDERING PHYSICIAN: HENRY AVALOS REASON FOR EXAM: r/ o inguinal abscess. Pain. TECHNIQUE: Targeted ultrasound of the left groin and inguinal region was performed. COMPARISON: None FINDINGS: No mass or focal fluid collections. No enlarged lymph nodes in the left groin. IMPRESSION: No significant abnormality is seen on ultrasound.
[2025-09-24 23:58] VITALS: PULSE 87; RESP 16; O2SAT 100
[2025-09-25] MEDS: ACETAMINOPHEN 325 MG TAB PO SCH
--- NOTE | 2025-09-25 00:13 | DVHHPRES ---
History of Present Illness Resident Creating Document: MELINA MELENDEZ RESIDENT History of Present Illness Patient is a 34-year-old male with past medical history of diabetes mellitus, hypertension, anxiety who came to the ED with chief complaints of left groin pain which is 10/10 in intensity, nonradiating, constant, increased on walking, associated with a wound which has bloody drainage, swelling that increased since yesterday. Patient states that he had intermittent fevers, chills, nausea, sweats, dysuria. Patient denies any vomiting, diarrhea, penile discharge, sexual intercourse. PMHx: diabetes mellitus, hypertension, anxiety PSHx: Denies Family history: reviewed, noncontributory Social history: ex smoker, drinks occasionally, previous marijuana use Home medication: lisinopril, hydrochlorothiazide, Xanax, metformin Allergic history: denies PCP: Dr. Bautista Patient seen in [facility]. Patient currently complains of 10/10 pain in the left inguinal region, nausea, chills. Patient denies any vomiting, diarrhea, dysuria, hematuria, shortness of breath, chest pain. Review of Systems Constitutional: Yes: Fever, Chills, Sweats; No: Weakness, Malaise, Other Eyes: No: Pain, Vision change, Conjunctivae inflammation, Eyelid inflammation, Other, Redness ENT: No: Ear pain, Ear discharge, Nose pain, Nose discharge, Nose congestion, Mouth pain, Mouth swelling, Throat pain, Throat swelling, Other Respiratory: No: Cough, Dry, Shortness of breath, SOB with excertion, Wheezing, Hemoptysis, Pleuritic Pain, Sputum, Wheezing, Other Cardiovascular: No: Chest Pain, Palpitations, Orthopnea, Paroxysmal Noc. Dyspnea, Edema, Lt Headedness, Other Gastrointestinal: Nausea, Other (Left inguinal pain); No: Vomiting, Abdominal Pain, Diarrhea, Constipation, Melena, Hematochezia Genitourinary: No Dysuria, No Frequency, No Incontinence, No Hematuria, No Retention, No Other Musculoskeletal: No: other, neck pain, shoulder pain, arm pain, back pain, hand pain, leg pain, foot pain Skin: No: Rash, Lesions, Jaundice, Bruising, Other Neurological: No: Weakness, Numbness, Incoordination, Change in speech, Confusion, Seizures, Other Allergies: Coded Allergies: NO KNOWN ALLERGIES (Unverified , 05/28/15) Medications Current Medications Medications Dose Ordered Sig/Lizette Route Start Time Stop Time Status Last Admin Dose Admin Ondansetron HCl 4 mg Q4HP PRN IV 09/24/25 23:00 Acetaminophen 650 mg Q6HR PO 09/25/25 00:00 Ceftriaxone Sodium/Dextrose 50 ml @ 50 mls/hr DAILY IV 09/25/25 10:00 UNV Insulin Glargine 15 units HS SC 09/25/25 22:00 Diagnostic Test (Pha) 1 strip ACHS 09/25/25 07:00 Insulin Human Regular AC SC 09/25/25 07:00 Dextrose 50 ml UD PRN IV 09/24/25 23:00 Ceftriaxone Sodium/Dextrose 50 ml @ 50 mls/hr DAILY IV 09/26/25 00:00 Alprazolam 0.5 mg BID PO 09/25/25 10:00 Lisinopril 20 mg DAILY PO 09/25/25 10:00 Exam Vital Signs Vital Signs Date Time Temp Pulse Resp B/P (MAP) Pulse Ox O2 Delivery O2 Flow Rate FiO2 09/24/25 20:05 98.7 85 16 142/85 (104) 97 98.7 Exam General Appearance: Alert, Oriented X3, Cooperative, No acute distress HEENT: Atraumatic, PERRLA, EOMI, Mucous membrane moist/pink Respiratory: Clear to auscultation, Normal air movement Cardiovascular: Regular rate, Normal S1, Normal S2, No murmurs, no chest wall tenderness Abdominal: left inguinal swelling, erythema, tenderness, wound during blurry discharge Extremities: No clubbing, No cyanosis, No edema, Normal pulses, No tenderness/swelling Skin: No rashes, No breakdown, No significant lesion Neuro: Normal gait, Normal speech, Strength at 5/5 X4 ext, Normal tone, Sensation intact, Cranial nerves 3-12 NL, Reflexes 2+ Psych/Mental Status: Mental status NL, Mood NL Labs/Xrays Labs Test 09/24/25 23:06 09/24/25 15:41 Range/Units Prothrombin Time 11.0 9.3-11.8 sec Prothrombin Time INR 1.04 0.9-1.15 Activated Partial Thromboplast Time 29.6 24.5-34.5 SEC Thyroid Stimulating Hormone (TSH) 3.84 0.55-4.78 uIU/mL White Blood Count 16.4 H 4.4-10.8 10^3/uL Red Blood Count 4.86 4.5-5.90 10^6/uL Hemoglobin 14.4 13.5-17.5 g/dL Hematocrit 43.6 41.0-53.0 % Mean Corpuscular Volume 89.8 80.0-100.0 fL Mean Corpuscular Hemoglobin 29.7 28.0-32.0 pg Mean Corpuscular Hemoglobin Concent 33.0 32.0-36.0 g/dL Red Cell Distribution Width 13.2 11.8-14.3 % Platelet Count 244 140-450 10^3/uL Mean Platelet Volume 9.3 6.9-10.8 fL Neutrophils (%) (Auto) 77.5 37.0-80.0 % Lymphocytes (%) (Auto) 13.6 10.0-50.0 % Monocytes (%) (Auto) 7.8 0.0-12.0 % Eosinophils (%) (Auto) 0.7 0.0-7.0 % Basophils (%) (Auto) 0.4 0.0-2.0 % Neutrophils # (Auto) 12.7 H 1.6-8.6 10 ^3/uL Lymphocytes # (Auto) 2.2 0.4-5.4 10 ^3/uL Monocytes # (Auto) 1.3 0-1.3 10 ^3/uL Eosinophils # (Auto) 0.1 0-0.8 10 ^3/uL Basophils # (Auto) 0.1 0-0.2 10 ^3/uL Nucleated Red Blood Cells 0.1 % Sodium Level 134 L 136-145 mmol/L Potassium Level 3.7 3.5-5.1 mmol/L Chloride Level 99 98-107 mmol/L Carbon Dioxide Level 22 20-31 mmol/L Anion Gap 13 5-15 Blood Urea Nitrogen 8 L 9-23 mg/dL Creatinine 0.95 0.700-1.30 mg/dL Glomerular Filtration Rate Calc 108 >90 mL/min BUN/Creatinine Ratio 8.4 L 10.0-20.0 Serum Glucose 272 H 74-106 mg/dL Hemoglobin A1c 9.6 H <5.7 % A1C Lactic Acid Level 0.8 0.4-2.0 mmol/L Calcium Level 9.2 8.7-10.4 mg/dL SEPSIS Sepsis Screen Date sepsis recognized/suspect: Sep 24, 2025 Time Sepsis recognized/suspect: 8 Recent Procedure: No On Antibiotic Therapy: No Respiratory Rate >20: No Heart Rate >90: Yes Temp<36 C (96.8 F) or >38.3 C: No SBP <90 or MAP <65 mmHG: No New Acute Mental Status Change: No Is the patient on CPAP, BIPAP,: No Physician Orders Ct Ab Pel Wo Con-No Oral Or Iv (09/24/25 21:36) Admit (09/24/25 22:49) Code Status (09/24/25 22:49) Ondansetron Hcl (Zofran) (09/24/25 23:00) Complete Blood Count (09/25/25 04:00) Comprehensive Metabolic Panel (09/25/25 04:00) Condition: Serious (09/24/25 22:49) Acetaminophen Tablet (Tylenol Tablet) (09/25/25 00:00) Bedrest With Bathroom Privileg (09/24/25 22:49) Stat Ekg For Chest Pain (09/24/25 22:49) Notify Md Of Changes From Base (09/24/25 22:49) Nurse Monitoring For 24 Hours (09/24/25 22:49) Emergency Dysrhythmia Protocol (09/24/25 22:49) Rhythm Strips Once Every Shift (09/24/25 22:49) Sodium Chloride 0.9% (09/24/25 23:00) Left Lower Extremity Ultrasoun (09/24/25 22:49) Insulin Lantus (Glargine) (Lantus) (09/25/25 22:00) Glucose Blood (Accu-Chek Comfort Curve T (09/25/25 07:00) Insulin R (Human) (Insulin R) (09/25/25 07:00) Dextrose 50% Syringe (09/24/25 23:00) Ceftriaxone 2gm/50ml (Rocephin 2gm/50ml) (09/26/25 00:00) Alprazolam Tablet (Xanax Tablet) (09/25/25 10:00) Lisinopril Tablet (Zestril Tablet) (09/25/25 10:00) * Wound Consult (09/24/25 ) Wound Culture W/ Gs (09/24/25 23:06) Urinalysis (09/24/25 23:06) Drug Screen (09/24/25 23:06) Vitamin D 25-Hydroxy D2 + D3 (09/24/25 23:22) Vital Signs Date Time Temp Pulse Resp B/P (MAP) Pulse Ox O2 Delivery O2 Flow Rate FiO2 09/24/25 20:05 98.7 85 16 142/85 (104) 97 98.7 09/24/25 16:59 98.6 90 16 137/92 (107) 97 98.6 Laboratory Tests Test 09/24/25 15:41 Lactic Acid Level 0.8 mmol/L (0.4-2.0) White Blood Count 16.4 10^3/uL (4.4-10.8) H Medications Medications Dose Ordered Sig/Lizette Route Start Time Stop Time Status Last Admin Dose Admin Clindamycin Phosphate 50 ml @ 50 mls/hr ONCE ONCE IV 09/24/25 15:30 09/24/25 16:29 DC 09/24/25 17:30 50 MLS/HR Piperacillin Sod/ Tazobactam Sod 100 ml @ 100 mls/hr ONCE ONCE IV 09/24/25 17:15 09/24/25 18:14 DC 09/24/25 18:42 100 MLS/HR Sodium Chloride 1,000 ml @ 1,000 mls/hr Q1H ONCE IV 09/24/25 15:30 09/24/25 16:29 DC 09/24/25 17:30 1,000 MLS/HR Assessment/Plan Assessment/Plan Sepsis due to cellulitis Cellulitis of left inguinal region -CT abdomen showed no definitive visualized inguinal hernia allowing for limitation given the majority of the inguinal canal is outside of the field of view. -left inguinal ultrasound showed: no significant abnormality - IV fluids - ceftriaxone, clindamycin - blood culture -wound consult/wound culture - pain management Diabetes mellitus HbA1c 9.6 Lantus 15, moderate sliding scale Hypertension Continue home meds Anxiety Continue home meds Hyponatremia Monitor labs Morbid Obesity BMI 33.5 - patient counseled on diet, exercise, lifestyle modifications for 18 months Diet: Regular Goals of care discussed with patient for greater than 27 minutes Case discussed with Dr. Arevalo Code Status: Full Code Plan discussed with: Patient My Orders Orders - MELINA MELENDEZ RESIDENT Procedure Category Date Status Time Admit ADMIT 09/24/25 Transmitted 22:49 Code Status CODE 09/24/25 Transmitted 22:49 Ondansetron Hcl PHA 09/24/25 In Process (Zofran) 23:00 Complete Blood Count LAB 09/25/25 Verified 04:00 Comprehensive LAB 09/25/25 Verified Metabolic Panel 04:00 Condition: Serious RAVI 09/24/25 In Process 22:49 Acetaminophen Tablet PHA 09/25/25 In Process (Tylenol Tablet) 00:00 Bedrest With Bathroom RAVI 09/24/25 In Process Privileg 22:49 Stat Ekg For Chest RAVI 09/24/25 In Process Pain 22:49 Notify Of Changes [facility] 09/24/25 In Process From Base 22:49 Nurse Monitoring For RAVI 09/24/25 In Process 24 Hours 22:49 Emergency Dysrhythmia [facility] 09/24/25 In Process Protocol 22:49 Rhythm Strips Once RAVI 09/24/25 In Process Every Shift 22:49 Sodium Chloride 0.9% PHA 09/24/25 In Process 23:00 Left Lower Extremity US 09/24/25 Resulted Ultrasoun 22:49 Insulin Lantus PHA 09/25/25 In Process (Glargine) (Lantus) 22:00 Glucose Blood PHA 09/25/25 In Process (Accu-Chek Comfort 07:00 Insulin R (Human) PHA 09/25/25 In Process (Insulin R) 07:00 Dextrose 50% Syringe PHA 09/24/25 In Process 23:00 Ceftriaxone 2gm/50ml PHA 09/26/25 In Process (Rocephin 2gm/50ml) 00:00 Alprazolam Tablet PHA 09/25/25 In Process (Xanax Tablet) 10:00 Lisinopril Tablet PHA 09/25/25 In Process (Zestril Tablet) 10:00 * Wound Consult CONS 09/24/25 Transmitted Wound Culture W/ Gs VEGA 09/24/25 Logged 23:06 Urinalysis LAB 09/24/25 Logged 23:06 Drug Screen LAB 09/24/25 Logged 23:06 Vitamin D 25-Hydroxy LAB 09/24/25 In Process D2 + D3 23:22 Visit Coding STANDARD RES Billing Provider: INOCENTE AREVALO MD Date of Service if different f: Sep 24, 2025 Common Visit Codes: 07552-[id number] INP/OBS CARE (HIGH) Secondary Visit Codes: 94624-[id number] CARE PLAN 30 MINUTES MELINA MELENDEZ RESIDENT Sep 25, 2025 00:13
[2025-09-25] MEDS: KETOROLAC TROMETH 30 MG/ML 1ML VIAL IV PRN (00:59)
[2025-09-25] MEDS: ALPRAZolam 0.5 MG TAB PO ONE (00:59)
[2025-09-25] MEDS: SODIUM CHLORIDE 0.9% 1,000 ML IV ONE (01:01)
[2025-09-25 04:19] LABS: Hematocrit 37.6 % (41.0-53.0); Hemoglobin 12.3 g/dL (13.5-17.5); Mean Corpuscular Hemoglobin 29.6 pg (28.0-32.0); Mean Corpuscular Volume 90.5 fL (80.0-100.0); Nucleated Red Blood Cells % 0.0 %
[2025-09-25 04:43] LABS: Albumin 3.9 g/dL (3.2-4.8); Alkaline Phosphatase 73 U/L (46-116); Anion Gap 8 (5-15); Carbon Dioxide 25 mmol/L (20-31); Chloride 102 mmol/L (98-107); Potassium 3.8 mmol/L (3.5-5.1)
[2025-09-25 04:44] LABS: BUN/Creatinine Ratio 9.9 (10.0-20.0); Total Protein 6.8 g/dL (5.7-8.2)
[2025-09-25 04:46] LABS: Bilirubin, Total 0.8 mg/dL (0.2-1.0); Sodium 135 mmol/L (136-145)
[2025-09-25 04:47] LABS: Alanine Aminotransferase 63 U/L (7-40); Blood Urea Nitrogen 8 mg/dL (9-23); Calcium 8.2 mg/dL (8.7-10.4); Glucose 304 mg/dL (74-106)
[2025-09-25 05:00] VITALS: BP 118/63; PULSE 89; RESP 18; TEMP 99.7; O2SAT 95
[2025-09-25] MEDS: CLINDAMYCIN 600MG IV 50 ML IV SCH (06:00)
[2025-09-25] MEDS: ACCU-CHEK COMFORT CURVE STRIP VI SCH (07:00)
[2025-09-25] MEDS: InsuLIN REG 1unit/0.01ml Soln (100units/ml) SC SCH (07:00)
[2025-09-25 08:00] VITALS: BP 139/86; PULSE 87; RESP 16; RESP 20; TEMP 101.1; O2SAT 95
[2025-09-25 08:00] LABS: Urine Protein, UAD TRACE (Negative)
[2025-09-25 08:09] LABS: Amphetamine Screen, Urine Neg (NEGATIVE); Barbiturate Scree,Urine Neg (NEGATIVE); Benzodiazephine Screen, Urine Pos (NEGATIVE); Cocaine Screen, Urine Neg (NEGATIVE)
[2025-09-25 08:10] LABS: Cannabinoid Screen, Urine Pos (NEGATIVE)
[2025-09-25 08:16] LABS: Opiate Scree,Urine Neg (NEGATIVE); Phencyclidine Screen, Urine Neg (NEGATIVE)
[2025-09-25] MEDS ORDERED: ACETAMINOPHEN 325 MG TAB PO PRN (08:30)
[2025-09-25] MEDS: ALPRAZolam 0.5 MG TAB PO SCH (09:58)
[2025-09-25] MEDS: LISINOPRIL 20 MG TAB PO SCH (09:58)
[2025-09-25 12:00] VITALS: BP 117/71; PULSE 72; RESP 16; TEMP 99; O2SAT 96
[2025-09-25] MEDS: IOHEXOL 300 MG/ML 100ML BOTTLE IJ ONE (12:23)
--- NOTE | 2025-09-25 13:16 | DVH ---
INDICATION: r/o inguinal abscess/Lyhphadenopathy. TECHNIQUE: CT axial images of the abdomen and pelvis are obtained with intravenous contrast. Coronal and sagittal reformats were obtained. Radiation Dose Information: CTDI volume is 19.29 mGy. Dose-length product is 1460.34 mGy*cm COMPARISON: None FINDINGS: The lung bases demonstrate no pleural effusion. Adrenal glands, spleen, pancreas unremarkable. No enhancing hepatic lesion. No CT evidence for cholelithiasis. No hydronephrosis. Stomach is partially distended. Small bowel loops are normal in caliber Moderate volume stool within the colon. Normal appendix. Abdominal aorta normal in caliber. Retroperitoneal lymphadenopathy measuring up to 1.6 cm. Bladder contracted. Left iliac lymph node measuring 2.2 cm. Left inguinal lymph node measuring 15 mm. Right inguinal lymph node measuring 12 mm. There is extensive soft tissue stranding changes within the perineum/ scrotal region, more pronounced on the left. Associated skin wall thickening. Bilateral hydroceles, [id number]. IMPRESSION: Extensive soft tissue stranding, skin wall thickening within the anterior peroneal, scrotal region, more lateralized towards the left. Correlate for cellulitis and other etiologies. Inguinal, iliac, retroperitoneal lymphadenopathy which may be secondary to the underlying process within the perineum/scrotal region Hydroceles, [id number] Other findings as described.
--- NOTE | 2025-09-25 16:57 | DVHPNRES ---
Progress Note Date Seen: Sep 25, 2025 Resident Creating Document: MARYSOL GUPTA RESIDENT Medical Necessity Reason Pt with a Central, PICC or Fol: No Subjective Review of Systems This is a 34-year-old male with past medical history of DM 2, HTN, anxiety disorder, came to ER with a complaint of left groin pain which started for 2 days which is getting worse day by day, initially patient noticed small bump unknown any history like insect bite. Pain was 10/10 intensity, localized, no radiation, constant, dull increase any kind of movement like walking and mild relieved on rest. Patient noted mild discharge from this area and decided to come to ER. Currently denies any fever, chills, nausea, vomiting, abdominal distention, constipation, diarrhea or any other acute distress. Patient having recent history of sexual exposure month ago but denies any dysuria, hematuria or urethral discharge. Patient denies any past history of STD. PMHx: diabetes mellitus, hypertension, anxiety PSHx: Denies Family history: reviewed, noncontributory Social history: ex smoker, drinks occasionally, previous marijuana use Home medication: lisinopril, hydrochlorothiazide, Xanax, metformin Allergic history: denies PCP: Dr. Bautista Patient seen and evaluated bedside today. Patient pain is significantly improved with current pain management. CT abdomen and pelvis with contrast done today. Surgery consult. Objective vital signs Vital Sign Date Time Temp Pulse Resp B/P (MAP) Pulse Ox O2 Delivery O2 Flow Rate FiO2 09/25/25 12:00 99.0 72 16 117/71 (86) 96 99.0 09/25/25 08:00 Room Air* 0 21 Total Intake and Output 09/24/25 09/24/25 09/25/25 15:00 23:00 07:00 Intake Total 1050 ml 100 ml Balance 1050 ml 100 ml medications Current Medications Medications Dose Ordered Sig/Lizette Route Start Time Stop Time Status Last Admin Dose Admin Ondansetron HCl 4 mg Q4HP PRN IV 09/24/25 23:00 Acetaminophen 650 mg Q6HR PO 09/25/25 00:00 09/25/25 12:59 650 MG Ceftriaxone Sodium/Dextrose 50 ml @ 50 mls/hr DAILY IV 09/25/25 10:00 UNV Insulin Glargine 15 units HS SC 09/25/25 22:00 Diagnostic Test (Pha) 1 strip ACHS 09/25/25 07:00 09/25/25 11:30 1 STRIP Insulin Human Regular AC SC 09/25/25 07:00 09/25/25 11:29 6 UNITS Dextrose 50 ml UD PRN IV 09/24/25 23:00 Ceftriaxone Sodium/Dextrose 50 ml @ 50 mls/hr DAILY IV 09/26/25 00:00 Alprazolam 0.5 mg BID PO 09/25/25 10:00 09/25/25 09:58 0.5 MG Lisinopril 20 mg DAILY PO 09/25/25 10:00 09/25/25 09:58 20 MG Ketorolac Tromethamine 15 mg Q6HPRN PRN IV 09/25/25 00:00 09/30/25 00:00 09/25/25 09:58 15 MG Clindamycin Phosphate 50 ml @ 50 mls/hr Q8HR IV 09/25/25 06:00 09/25/25 14:01 50 MLS/HR Acetaminophen 650 mg Q6HP PRN PO 09/25/25 08:30 Examination General Appearance: Alert, Oriented X3, Cooperative, No acute distress HEENT: Atraumatic, PERRLA, EOMI, Mucous membrane moist/pink Respiratory: Clear to auscultation, Normal air movement Cardiovascular: Regular rate, Normal S1, Normal S2, No murmurs, no chest wall tenderness Abdominal: left inguinal swelling, erythema, tenderness, mild discharge Extremities: No clubbing, No cyanosis, No edema, Normal pulses, No tenderness/swelling Skin: No rashes, No breakdown, No significant lesion Neuro: Normal gait, Normal speech, Strength at 5/5 X4 ext, Normal tone, Sensation intact, Cranial nerves 3-12 NL, Reflexes 2+ Psych/Mental Status: Mental status NL, Mood NL laboratory and microbiology Laboratory Tests 09/25/25 03:11 Test 09/25/25 03:11 Range/Units Serum Glucose 304 H 74-106 mg/dL Microbiology Date/Time Source Procedure Growth Status 09/24/25 15:41 Blood Blood Culture - Preliminary NO GROWTH AFTER 24 HOURS OF INCUBATION. 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 -left inguinal ultrasound showed: no significant abnormality CT abdomen and pelvis without contrast: Extensive soft tissue trending, skin wall thickening within the anterior perineal, scrotal region, lymphadenopathy - IV fluids - started empiric antibiotic ceftriaxone, clindamycin - blood culture -wound culture -wound consult -surgery consult - pain management -urine for GC/ chlamydia Diabetes mellitus HbA1c 9.6 Lantus 15, moderate sliding scale Monitor blood sugar Essential hypertension Lisinopril Monitor blood pressure Anxiety Alprazolam Hyponatremia BMP Hydrocele greater lt than right Outpatient follow-up Polysubstance abuse UDS positive for benzo and cannabis >13 minute spent consult patient. Morbid Obesity BMI 33.5 - patient counseled on diet, exercise, lifestyle modifications. Diet: Regular GI prophylaxis: Famotidine DVT prophylaxis: Lovenox Goals of care discussion and more than 21 minute spent . Full code status. Case discussed with Dr. Arevalo Plan discussed with: Patient, Other (Nurse) My Orders My Orders Orders - MARYSOL GUPTA RESIDENT Procedure Category Date Status Time Chlamydia/Gc LAB 09/25/25 In Process Amplification 07:05 Acetaminophen Tablet PHA 09/25/25 In Process (Tylenol Tablet) 08:30 Ct Ab Pel With Iv Con CT 09/25/25 Resulted Only 11:17 Iohexol (Omnipaque) PHA 09/25/25 In Process 12:23 * Surgical Consult CONS 09/25/25 Transmitted Visit Coding STANDARD RES Billing Provider: INOCENTE AREVALO MD Date of Service if different f: Sep 25, 2025 Common Visit Codes: [id number] INP/OBS CARE(HIGH) MARYSOL GUPTA RESIDENT Sep 25, 2025 16:57 INOCENTE AREVALO MD Oct 02, 2025 15:54
--- NOTE | 2025-09-25 17:40 | DVHINCON2 ---
Date of service: Sep 25, 2025 History of Present Illness 34-year-old diabetic male complaining of two day history of painful swelling in his left inguinal region with drainage. Patient also reports low-grade fever. Past Medical History Diabetes. Hypertension. Anxiety disorder. Past Surgical History Craniotomy for benign tumor Family History: Cerebrovascular accident (CVA) G8 MOTHER Diabetes mellitus G8 MOTHER G8 FATHER Hypertension G8 MOTHER G8 FATHER Other blood disorders Family History Noncontributory Social History Denies alcohol, tobacco, IV drug use Allergies: Coded Allergies: NO KNOWN ALLERGIES (Unverified , 05/28/15) Home Meds Active Scripts Alprazolam (Alprazolam) 0.5 Mg Tab, 1 TAB PO BID PRN for 7 Days, #14 TAB Prov:ADRIAN SALAS NP 08/16/25 Alprazolam (Alprazolam) 1 Mg Tab, 1 TAB PO Q12HP PRN for 7 Days, #10 TAB Prov:ROSMERY ALVARADO MD 04/24/22 Reported Medications Metformin Hydrochloride (Metformin Hcl) 500 Mg Tab, 1 TAB PO BID, #60 TAB 3 Refills 08/14/25 Lisinopril (Lisinopril) 20 Mg Tab, 1 TAB PO DAILY, #30 TAB 5 Refills 08/14/25 Cholecalciferol (Vitamin D3) 50,000 Unit Cap, 1 CAP PO QWEEKLY 04/20/25 Hctz (Hydrochlorothiazide) 25 Mg Tab, 1 TAB PO DAILY 04/20/25 Current Medications Current Medications Medications (Trade) Dose Ordered Sig/Lizette Route PRN Reason Start Time Stop Time Status Last Admin Ondansetron HCl (Zofran) 4 mg Q4HP PRN IV NAUSEA / VOMITING 09/24/25 23:00 Acetaminophen (Tylenol Tablet) 650 mg Q6HR PO 09/25/25 00:00 09/25/25 17:15 Ceftriaxone Sodium/Dextrose 50 ml @ 50 mls/hr DAILY IV 09/25/25 10:00 UNV Insulin Glargine (Lantus) 15 units HS SC 09/25/25 22:00 Diagnostic Test (Pha) (Accu-Chek Comfort Curve T) 1 strip ACHS 09/25/25 07:00 09/25/25 17:12 Insulin Human Regular (InsuLIN R) AC SC 09/25/25 07:00 09/25/25 17:13 Dextrose 50 ml UD PRN IV Blood Sugar LESS THAN 60 09/24/25 23:00 Ceftriaxone Sodium/Dextrose 50 ml @ 50 mls/hr DAILY IV 09/26/25 00:00 Alprazolam (Xanax Tablet) 0.5 mg BID PO 09/25/25 10:00 09/25/25 09:58 Lisinopril (Zestril Tablet) 20 mg DAILY PO 09/25/25 10:00 09/25/25 09:58 Ketorolac Tromethamine (Toradol Injection) 15 mg Q6HPRN PRN IV SEVERE PAIN (7-10 PAIN SCALE) 09/25/25 00:00 09/30/25 00:00 09/25/25 17:21 Clindamycin Phosphate 50 ml @ 50 mls/hr Q8HR IV 09/25/25 06:00 09/25/25 14:01 Acetaminophen (Tylenol Tablet) 650 mg Q6HP PRN PO MILD PAIN (1-3 PAIN SCALE) 09/25/25 08:30 Enoxaparin Sodium (Lovenox) 40 mg DAILY SC 09/26/25 10:00 UNV Famotidine (Pepcid Tablet) 40 mg DAILY PO 09/26/25 10:00 UNV Vital Signs Vital Signs Date Time Temp Pulse Resp B/P (MAP) Pulse Ox O2 Delivery O2 Flow Rate FiO2 09/25/25 17:15 99.0 09/25/25 12:00 72 16 117/71 (86) 96 09/25/25 08:00 Room Air* 0 21 Physical Exam GEN: Age-appropriate male in no acute distress. Alert. HEENT: Normocephalic atraumatic. Moist mucous membranes. Anicteric sclerae. CV: RRR Respiratory: CTAB ABD: Soft. Nontender nondistended Left groin. There was a large area of erythematous induration involving the left inguinal region extending near the scrotum that is tender to palpation with a small skin opening with some serosanguineous drainage. There is very tender to palpation. CT: Extensive soft tissue stranding, skin wall thickening within the anterior perineal, scrotal region more lateralized towards the left with inguinal, iliac, retroperitoneal lymphadenopathy which may be secondary to underlying process. Labs/Diagnostic Data Labs Test 09/25/25 16:51 12/22/25 06:30 09/25/25 03:11 09/24/25 23:06 Range/Units POC Glucose 182 H 70-106 mg/dl Urine Color Yellow Yellow Urine Clarity Clear Clear Urine pH 6.0 5.0-9.0 Urine Specific [place] 1.025 1.001-1.035 Urine Protein Trace H Negative Urine Ketones 1+ H Negative Urine Blood Negative Negative /uL Urine Nitrite Negative Negative Urine Bilirubin Negative Negative Urine Urobilinogen 2 H Negative mg/dL Urine Leukocyte Esterase 2+ Negative /uL Urine RBC 3 0 - 3 /hpf Urine Microscopic WBC 6 H 0-3 /HPF Urine Squamous Epithelial Cells Few <5 /hpf Urine Bacteria None seen None Seen /hpf Urine Hyaline Casts Few 0 - 2 /lpf Urine Mucus Few None Seen Urine Glucose 4+ H Normal mg/dL Urine Opiates Screen Neg NEGATIVE Urine Fentanyl Screen Neg NEGATIVE Urine Barbiturates Screen Neg NEGATIVE Urine Phencyclidine Screen Neg NEGATIVE Urine Amphetamines Screen Neg NEGATIVE Urine Benzodiazepines Screen Pos NEGATIVE Urine Cocaine Screen Neg NEGATIVE Urine Cannabinoids Screen Pos NEGATIVE White Blood Count 12.9 H 4.4-10.8 10^3/uL Red Blood Count 4.16 L 4.5-5.90 10^6/uL Hemoglobin 12.3 L 13.5-17.5 g/dL Hematocrit 37.6 #L 41.0-53.0 % Mean Corpuscular Volume 90.5 80.0-100.0 fL Mean Corpuscular Hemoglobin 29.6 28.0-32.0 pg Mean Corpuscular Hemoglobin Concent 32.7 32.0-36.0 g/dL Red Cell Distribution Width 13.3 11.8-14.3 % Platelet Count 205 140-450 10^3/uL Mean Platelet Volume 9.6 6.9-10.8 fL Neutrophils (%) (Auto) 79.1 37.0-80.0 % Lymphocytes (%) (Auto) 12.7 10.0-50.0 % Monocytes (%) (Auto) 6.8 0.0-12.0 % Eosinophils (%) (Auto) 1.1 0.0-7.0 % Basophils (%) (Auto) 0.3 0.0-2.0 % Neutrophils # (Auto) 10.2 H 1.6-8.6 10 ^3/uL Lymphocytes # (Auto) 1.6 0.4-5.4 10 ^3/uL Monocytes # (Auto) 0.9 0-1.3 10 ^3/uL Eosinophils # (Auto) 0.1 0-0.8 10 ^3/uL Basophils # (Auto) 0 0-0.2 10 ^3/uL Nucleated Red Blood Cells 0.0 % Sodium Level 135 L 136-145 mmol/L Potassium Level 3.8 3.5-5.1 mmol/L Chloride Level 102 98-107 mmol/L Carbon Dioxide Level 25 20-31 mmol/L Anion Gap 8 5-15 Blood Urea Nitrogen 8 L 9-23 mg/dL Creatinine 0.81 0.700-1.30 mg/dL Glomerular Filtration Rate Calc 119 >90 mL/min BUN/Creatinine Ratio 9.9 L 10.0-20.0 Serum Glucose 304 H 74-106 mg/dL Calcium Level 8.2 L 8.7-10.4 mg/dL Total Bilirubin 0.8 0.2-1.0 mg/dL Aspartate Amino Transferase (AST) 21 13-40 U/L Alanine Aminotransferase (ALT) 63 H 7-40 U/L Alkaline Phosphatase 73 46-116 U/L Total Protein 6.8 5.7-8.2 g/dL Albumin 3.9 3.2-4.8 g/dL Prothrombin Time 11.0 9.3-11.8 sec Prothrombin Time INR 1.04 0.9-1.15 Activated Partial Thromboplast Time 29.6 24.5-34.5 SEC Thyroid Stimulating Hormone (TSH) 3.84 0.55-4.78 uIU/mL Test 09/24/25 15:41 Range/Units Hemoglobin A1c 9.6 H <5.7 % A1C Lactic Acid Level 0.8 0.4-2.0 mmol/L Microbiology Date/Time Source Procedure Growth Status 09/24/25 15:41 Blood Blood Culture - Preliminary NO GROWTH AFTER 24 HOURS OF INCUBATION. Resulted Assessment 1. Left groin cellulitis/abscess Plan/Recommendation 1. Incision and drainage of left groin abscess Informed consent: The surgery and its risks including but not limited to infection, bleeding, open surgical site requiring local wound care, possible perioperative MD or stroke were explained to the patient. All questions were answered to his satisfaction. He expressed verbal understanding and wished to proceed with the surgery. Plan discussed with: Patient TERRENCE CONN MD Sep 25, 2025 17:40
[2025-09-25 20:00] VITALS: PULSE 74; RESP 20; O2SAT 94
[2025-09-25 21:00] VITALS: BP 108/57; PULSE 74; RESP 20; TEMP 98.5; O2SAT 94
[2025-09-25] MEDS: INSULIN LANTUS (GLARGINE) 1 /0.01ml (100units/ml) SC SCH (22:04)
[2025-09-26] VITALS (7 sets, daily range): BP systolic 112–141; BP diastolic 62–87; PULSE 59–82; RESP 15–18; TEMP 97–98.6; O2SAT 95–97
--- NOTE | 2025-09-26 06:53 | DVHPNRES ---
Progress Note Date Seen: Sep 26, 2025 Resident Creating Document: MARYSOL GUPTA RESIDENT Medical Necessity Reason Pt with a Central, PICC or Fol: No Subjective Review of Systems This is a 34-year-old male with past medical history of DM 2, HTN, anxiety disorder, came to ER with a complaint of left groin pain which started for 2 days which is getting worse day by day, initially patient noticed small bump unknown any history like insect bite. Pain was 10/10 intensity, localized, no radiation, constant, dull increase any kind of movement like walking and mild relieved on rest. Patient noted mild discharge from this area and decided to come to ER. Currently denies any fever, chills, nausea, vomiting, abdominal distention, constipation, diarrhea or any other acute distress. Patient having recent history of sexual exposure month ago but denies any dysuria, hematuria or urethral discharge. Patient denies any past history of STD. PMHx: diabetes mellitus, hypertension, anxiety PSHx: Denies Family history: reviewed, noncontributory Social history: ex smoker, drinks occasionally, previous marijuana use Home medication: lisinopril, hydrochlorothiazide, Xanax, metformin Allergic history: denies PCP: Dr. Bautista Patient seen and evaluated bedside today. Surgery consult appreciated, I and D done today. Patient pain improving. Objective vital signs Vital Sign Date Time Temp Pulse Resp B/P (MAP) Pulse Ox O2 Delivery O2 Flow Rate FiO2 09/26/25 05:00 98.4 59 16 112/73 (86) 95 98.4 09/25/25 20:00 Room Air* 0 21 Total Intake and Output 09/25/25 09/25/25 09/26/25 15:00 23:00 07:00 Intake Total 530 ml 0 ml Output Total 4 ml Balance 526 ml 0 ml medications Current Medications Medications Dose Ordered Sig/Lizette Route Start Time Stop Time Status Last Admin Dose Admin Ondansetron HCl 4 mg Q4HP PRN IV 09/24/25 23:00 Acetaminophen 650 mg Q6HR PO 09/25/25 00:00 09/26/25 00:24 650 MG Ceftriaxone Sodium/Dextrose 50 ml @ 50 mls/hr DAILY IV 09/25/25 10:00 UNV Insulin Glargine 15 units HS SC 09/25/25 22:00 09/25/25 22:04 15 UNITS Diagnostic Test (Pha) 1 strip ACHS 09/25/25 07:00 09/25/25 22:03 1 STRIP Insulin Human Regular AC SC 09/25/25 07:00 09/25/25 17:13 3 UNITS Dextrose 50 ml UD PRN IV 09/24/25 23:00 Ceftriaxone Sodium/Dextrose 50 ml @ 50 mls/hr DAILY IV 09/26/25 00:00 09/26/25 00:27 50 MLS/HR Alprazolam 0.5 mg BID PO 09/25/25 10:00 09/25/25 22:03 0.5 MG Lisinopril 20 mg DAILY PO 09/25/25 10:00 09/25/25 09:58 20 MG Ketorolac Tromethamine 15 mg Q6HPRN PRN IV 09/25/25 00:00 09/30/25 00:00 09/26/25 02:39 15 MG Clindamycin Phosphate 50 ml @ 50 mls/hr Q8HR IV 09/25/25 06:00 09/26/25 06:23 50 MLS/HR Acetaminophen 650 mg Q6HP PRN PO 09/25/25 08:30 Enoxaparin Sodium 40 mg DAILY SC 09/26/25 10:00 Famotidine 40 mg DAILY PO 09/26/25 10:00 Examination General Appearance: Alert, Oriented X3, Cooperative, No acute distress HEENT: Atraumatic, PERRLA, EOMI, Mucous membrane moist/pink Respiratory: Clear to auscultation, Normal air movement Cardiovascular: Regular rate, Normal S1, Normal S2, No murmurs, no chest wall tenderness Abdominal: left inguinal swelling, erythema, tenderness Extremities: No clubbing, No cyanosis, No edema, Normal pulses, No tenderness/swelling Skin: No rashes, No breakdown, No significant lesion Neuro: Normal gait, Normal speech, Strength at 5/5 X4 ext, Normal tone, Sensation intact, Cranial nerves 3-12 NL, Reflexes 2+ Psych/Mental Status: Mental status NL, Mood NL laboratory and microbiology Laboratory Tests 09/25/25 03:11 Test 09/25/25 03:11 Range/Units Serum Glucose 304 H 74-106 mg/dL Microbiology Date/Time Source Procedure Growth Status 09/24/25 15:41 Blood Blood Culture - Preliminary NO GROWTH AFTER 24 HOURS OF INCUBATION. 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 -left inguinal ultrasound showed: no significant abnormality -CT abdomen and pelvis without contrast: Extensive soft tissue trending, skin wall thickening within the anterior perineal, scrotal region, lymphadenopathy - IV fluids - started empiric antibiotic ceftriaxone, clindamycin - blood culture x2 preliminary result showed no growth -wound culture pending -surgery consult appreciated and I and D done on 09/26/2025 - pain management -urine for GC/ chlamydia report pending Complicated urinary tract infection UA showed ketones 1+, leukocyte esterase 2+, WBC 6 Continue ceftriaxone Encouraged oral fluid intake Diabetes mellitus HbA1c 9.6 Lantus 15 Started bolus insulin 5 units t.i.d. moderate sliding scale Monitor blood sugar Essential hypertension Lisinopril Monitor blood pressure Mild Transaminitis ALT 63, AST 21, ALP 73 Monitor labs Anxiety Alprazolam Hyponatremia BMP Hydrocele greater lt than right Outpatient follow-up Polysubstance abuse UDS positive for benzo and cannabis >11 minute spent consult patient. Morbid Obesity BMI 33.5 - patient counseled on diet, exercise, lifestyle modifications. Diet: Regular GI prophylaxis: Famotidine DVT prophylaxis: Lovenox Lovenox Goals of care discussion and more than 21 minute spent . Full code status. Case discussed with Dr. Arevalo Plan discussed with: Patient, Other (nurse) My Orders My Orders Orders - MARYSOL GUPTA RESIDENT Procedure Category Date Status Time Chlamydia/Gc LAB 09/25/25 In Process Amplification 07:05 Acetaminophen Tablet PHA 09/25/25 In Process (Tylenol Tablet) 08:30 Ct Ab Pel With Iv Con CT 09/25/25 Resulted Only 11:17 Iohexol (Omnipaque) PHA 09/25/25 In Process 12:23 * Surgical Consult CONS 09/25/25 Transmitted Enoxaparin Sodium PHA 09/26/25 In Process (Lovenox) 10:00 Famotidine Tablet PHA 09/26/25 In Process (Pepcid Tablet) 10:00 Basic Metabolic Panel LAB 09/26/25 Logged 04:00 Complete Blood Count LAB 09/26/25 Logged 04:00 Type And Screen BBK 09/26/25 Logged 04:00 Visit Coding STANDARD RES Billing Provider: INOCENTE AREVALO MD Date of Service if different f: Sep 26, 2025 Common Visit Codes: [id number] INP/OBS CARE(HIGH) MARYSOL GUPTA RESIDENT Sep 26, 2025 06:53 INOCENTE AREVALO MD Oct 03, 2025 15:35
[2025-09-26] MEDS: INSULIN LISPRO (HUMAN) 100 UNITS/ML ML SC SCH (07:26)
[2025-09-26] MEDS ORDERED: MIDAZOLAM HCL 2MG/2ML 2ml VIAL (1mg/ml) ONE (07:45)
[2025-09-26] MEDS ORDERED: fentaNYL CITRATE 100 MCG/2 ML VL ONE (07:45)
[2025-09-26 07:50] LABS: Hematocrit 36.9 % (41.0-53.0); Hemoglobin 12.3 g/dL (13.5-17.5); Mean Corpuscular Hemoglobin 30.1 pg (28.0-32.0); Mean Corpuscular Volume 90.5 fL (80.0-100.0); Nucleated Red Blood Cells % 0.0 %
[2025-09-26 07:59] LABS: Anion Gap 9 (5-15); Carbon Dioxide 26 mmol/L (20-31); Chloride 104 mmol/L (98-107); Potassium 3.9 mmol/L (3.5-5.1); Sodium 139 mmol/L (136-145)
[2025-09-26 08:01] LABS: Calcium 8.8 mg/dL (8.7-10.4)
[2025-09-26 08:05] LABS: BUN/Creatinine Ratio 8.5 (10.0-20.0); Blood Urea Nitrogen 6 mg/dL (9-23); Glucose 168 mg/dL (74-106)
[2025-09-26] MEDS: LIDOCAINE W/ EPINEPHRINE 1% 20ML VIAL ONE (08:40)
[2025-09-26] MEDS ORDERED: PROPOFOL 10 MG/ML 20 ML IV ONE (08:44)
--- NOTE | 2025-09-26 08:48 | DVHOP2 ---
Operative Report - 2 Report Details Date: 09/26/25 Preop Diagnosis: Left groin abscess Postop Diagnosis: Same Surgeon: Terrence Nunez MD Fret Saw Operator: None Anesthesiologist: Darin Zelaya MD Anesthesia: General, Local (1% with epi or 0.5% local) Consent: The surgery and its risks including but not limited to infection, bleeding, open surgical site requiring local wound care, possible perioperative [place] or stroke were explained to the patient. All questions were answered to his satisfaction. He expressed verbal understanding and wished to proceed with the surgery. Complications: None Estimated Blood Loss: 10 mL Fluids: 500 mL Name of Procedure Performed Incision and drainage of left groin abscess Procedure Details Procedure Details: After induction of general anesthesia, patient's left groin area was prepped and draped in standard surgical fashion. There was small amount of purulent drainage already from a small skin opening in the left groin. This was explored and opened up wider revealing an abscess cavity with purulent fluid. This area was swabbed for Gram stain and culture and curetted until healthier tissue was encountered. Incision extended superiorly to fully open up all of the abscess cavity. The abscess cavity was irrigated with diluted Betadine irrigation and packed with 1 in iodoform packing strip. Approximately 20 mL of 1% lidocaine with epinephrine was used as local anesthesia. Surgical site was cleaned and dried and dressings were applied. Sponge, needle, instrument count at the end of the case were reported to be correct by the nursing staff. The patient tolerated procedure well and was awake, extubated and transferred to recovery in stable condition. Specimen: Gram stain and culture Condition Stable Disposition Still a Patient TERRENCE NUNEZ MD Sep 26, 2025 08:48
[2025-09-26] MEDS ORDERED: HYDROmorphone HCL 2 MG/ML VL/or syr IV PRN (09:00)
[2025-09-26] MEDS ORDERED: ONDANSETRON HCL 4 MG/2 ML VIAL IV PRN (09:00)
[2025-09-26] MEDS ORDERED: hydrALAZINE HCL 20 MG/ML VL IV PRN (09:00)
[2025-09-26] MEDS ORDERED: MIDAZOLAM HCL 2MG/2ML 2ml VIAL (1mg/ml) IV PRN (09:00)
[2025-09-26] MEDS: KETOROLAC TROMETH 30 MG/ML 1ML VIAL IV ONE (09:00)
[2025-09-26] MEDS ORDERED: MORPHINE SULFATE 4 MG/ML SYR/VIAL IV PRN (09:00)
[2025-09-26] MEDS: FAMOTIDINE 20 MG TAB PO SCH (10:31)
[2025-09-26] MEDS: ENOXAPARIN SOD 40 MG/0.4 ML SYRINGE SC SCH (10:33)
[2025-09-27] VITALS (7 sets, daily range): BP systolic 126–154; BP diastolic 80–93; PULSE 52–64; RESP 17–19; TEMP 97.3–98.7; O2SAT 90–98
[2025-09-27 06:07] LABS: Chlamydia Trachomatis, NAA Negative (Negative); Neisseria gonorrhoeae, NAA Negative (Negative)
[2025-09-27 06:57] LABS: Hematocrit 38.1 % (41.0-53.0); Hemoglobin 12.6 g/dL (13.5-17.5); Mean Corpuscular Hemoglobin 29.8 pg (28.0-32.0); Mean Corpuscular Volume 90.3 fL (80.0-100.0); Nucleated Red Blood Cells % 0.0 %
[2025-09-27 07:16] LABS: Anion Gap 10 (5-15); Carbon Dioxide 23 mmol/L (20-31); Chloride 103 mmol/L (98-107); Potassium 4.1 mmol/L (3.5-5.1); Sodium 136 mmol/L (136-145)
[2025-09-27 07:17] LABS: Calcium 9.4 mg/dL (8.7-10.4)
[2025-09-27 07:22] LABS: BUN/Creatinine Ratio 11.9 (10.0-20.0); Blood Urea Nitrogen 10 mg/dL (9-23)
[2025-09-27 07:24] LABS: Glucose 257 mg/dL (74-106)
[2025-09-27] MEDS: INSULIN LANTUS (GLARGINE) 1 /0.01ml (100units/ml) SC SCH (08:30)
--- NOTE | 2025-09-27 12:29 | DVHPN2 ---
Progress Note - Surgical Date Seen: Sep 27, 2025 Post op day Post op day: 1 Subjective Patient reports: Feels better (Patient states he is feeling better today) Review of Systems: Deferred Objective Vital signs Vital Sign Date Time Temp Pulse Resp B/P (MAP) Pulse Ox O2 Delivery O2 Flow Rate FiO2 09/27/25 11:04 154/93 09/27/25 09:00 97.3 63 17 97 97.3 09/27/25 07:58 Room Air* 0 21 Total Intake and Output 09/26/25 09/26/25 09/27/25 15:00 23:00 07:00 Intake Total 10 ml 5000 ml 1200 ml Balance 10 ml 5000 ml 1200 ml Medications Current Medications Medications Dose Ordered Sig/Lizette Route Start Time Stop Time Status Last Admin Dose Admin Acetaminophen 650 mg Q6HR PO 09/25/25 00:00 09/27/25 05:25 650 MG Ceftriaxone Sodium/Dextrose 50 ml @ 50 mls/hr DAILY IV 09/25/25 10:00 UNV Diagnostic Test (Pha) 1 strip ACHS 09/25/25 07:00 09/27/25 11:31 1 STRIP Insulin Human Regular AC SC 09/25/25 07:00 09/27/25 11:30 2 UNITS Dextrose 50 ml UD PRN IV 09/24/25 23:00 Ceftriaxone Sodium/Dextrose 50 ml @ 50 mls/hr DAILY IV 09/26/25 00:00 09/27/25 10:00 50 MLS/HR Alprazolam 0.5 mg BID PO 09/25/25 10:00 09/27/25 11:04 0.5 MG Lisinopril 20 mg DAILY PO 09/25/25 10:00 09/27/25 11:04 20 MG Ketorolac Tromethamine 15 mg Q6HPRN PRN IV 09/25/25 00:00 09/30/25 00:00 09/27/25 12:01 15 MG Clindamycin Phosphate 50 ml @ 50 mls/hr Q8HR IV 09/25/25 06:00 09/27/25 05:25 50 MLS/HR Acetaminophen 650 mg Q6HP PRN PO 09/25/25 08:30 Enoxaparin Sodium 40 mg DAILY SC 09/26/25 10:00 09/27/25 11:05 40 MG Famotidine 40 mg DAILY PO 09/26/25 10:00 09/27/25 11:03 40 MG Insulin Human Lispro 5 units AC SC 09/26/25 07:00 09/27/25 11:30 5 UNITS Insulin Glargine 20 units HS SC 09/27/25 08:30 Laboratory Laboratory Tests 09/27/25 06:00 Test 09/27/25 06:00 Range/Units Serum Glucose 257 H 74-106 mg/dL Microbiology Date/Time Source Procedure Growth Status 09/26/25 08:32 Groin Gram Stain - Final Resulted 09/26/25 08:32 Groin Anaerobic Culture - Preliminary No growth Resulted 09/26/25 08:32 Groin Aerobic Culture - Preliminary Resulted 09/24/25 15:41 Blood Blood Culture - Preliminary NO GROWTH AFTER 48 HOURS OF INCUBATION. Resulted Examination: GENERAL:Normal (AAO x3), LUNGS:Normal (Nonlabored breathing with symmetric expansion), SKIN:Abnormal (Left groin wound approximately 2-3 cm in diameter and 2 cm deep, no pus, no necrosis, no fluctuance, surrounding induration, no crepitus) Labs and/or images reviewed: Labs reviewed by me (No leukocytosis) Problem List/Assessment/Plan Assessment and Plan Mr. Hassan is a 34-year-old male who is currently postop day 1 from left groin incision and drainage by Dr. Nunez. Wound looks good, no residual pus/drainage/necrosis. Wound is hemostatic and still has some surrounding induration. I recommend patient continues on IV antibiotics for at least 48-72 hours postprocedure. 1. Recommend continuing IV antibiotics for 48-72 hours postprocedure, and after this period, Discharging home on p.o. antibiotics for a total 7-10 days. 2. Continue b.i.d. packing changes while in the hospital 3. Upon discharge he can do daily packing changes 4. Okay to shower soap and water can run over incision, remove packing 1st and all dressings 5. Follow up with Dr. Nunez at surgery Clinic 6. I will sign off, please call with any questions or concerns Plan discussed with Plan discussed with: Patient Visit Coding Surgery Date of Service if different f: Sep 27, 2025 Billing Provider: PIEDAD BANG MD Surgery Visit Codes: [id number] INP/OBS CARE(HIGH) PIEDAD BANG MD Sep 27, 2025 12:29
--- NOTE | 2025-09-27 15:00 | DVHPNRES ---
Progress Note Date Seen: Sep 27, 2025 Resident Creating Document: MARYSOL GUPTA RESIDENT Medical Necessity Reason Pt with a Central, PICC or Fol: No Subjective Review of Systems This is a 34-year-old male with past medical history of DM 2, HTN, anxiety disorder, came to ER with a complaint of left groin pain which started for 2 days which is getting worse day by day, initially patient noticed small bump unknown any history like insect bite. Pain was 10/10 intensity, localized, no radiation, constant, dull increase any kind of movement like walking and mild relieved on rest. Patient noted mild discharge from this area and decided to come to ER. Currently denies any fever, chills, nausea, vomiting, abdominal distention, constipation, diarrhea or any other acute distress. Patient having recent history of sexual exposure month ago but denies any dysuria, hematuria or urethral discharge. Patient denies any past history of STD. PMHx: diabetes mellitus, hypertension, anxiety PSHx: Denies Family history: reviewed, noncontributory Social history: ex smoker, drinks occasionally, previous marijuana use Home medication: lisinopril, hydrochlorothiazide, Xanax, metformin Allergic history: denies PCP: Dr. Bautista Patient seen and evaluated in bedside today. Surgery consult appreciated. Patient left groin pain significantly improved. Surgery recommended to change pack in dressing site twice a day. Patient denies and fever, nausea vomiting or abdominal pain. Objective vital signs Vital Sign Date Time Temp Pulse Resp B/P (MAP) Pulse Ox O2 Delivery O2 Flow Rate FiO2 09/27/25 13:00 98.3 52 17 140/90 (107) 98 98.3 09/27/25 07:58 Room Air* 0 21 Total Intake and Output 09/26/25 09/26/25 09/27/25 15:00 23:00 07:00 Intake Total 10 ml 5000 ml 1200 ml Balance 10 ml 5000 ml 1200 ml medications Current Medications Medications Dose Ordered Sig/Lizette Route Start Time Stop Time Status Last Admin Dose Admin Acetaminophen 650 mg Q6HR PO 09/25/25 00:00 09/27/25 05:25 650 MG Ceftriaxone Sodium/Dextrose 50 ml @ 50 mls/hr DAILY IV 09/25/25 10:00 UNV Diagnostic Test (Pha) 1 strip ACHS 09/25/25 07:00 09/27/25 11:31 1 STRIP Insulin Human Regular AC SC 09/25/25 07:00 09/27/25 11:30 2 UNITS Dextrose 50 ml UD PRN IV 09/24/25 23:00 Ceftriaxone Sodium/Dextrose 50 ml @ 50 mls/hr DAILY IV 09/26/25 00:00 09/27/25 10:00 50 MLS/HR Alprazolam 0.5 mg BID PO 09/25/25 10:00 09/27/25 11:04 0.5 MG Lisinopril 20 mg DAILY PO 09/25/25 10:00 09/27/25 11:04 20 MG Ketorolac Tromethamine 15 mg Q6HPRN PRN IV 09/25/25 00:00 09/30/25 00:00 09/27/25 12:01 15 MG Clindamycin Phosphate 50 ml @ 50 mls/hr Q8HR IV 09/25/25 06:00 09/27/25 14:33 50 MLS/HR Acetaminophen 650 mg Q6HP PRN PO 09/25/25 08:30 Enoxaparin Sodium 40 mg DAILY SC 09/26/25 10:00 09/27/25 11:05 40 MG Famotidine 40 mg DAILY PO 09/26/25 10:00 09/27/25 11:03 40 MG Insulin Human Lispro 5 units AC SC 09/26/25 07:00 09/27/25 11:30 5 UNITS Insulin Glargine 20 units HS SC 09/27/25 08:30 Examination General Appearance: Alert, Oriented X3, Cooperative, No acute distress HEENT: Atraumatic, PERRLA, EOMI, Mucous membrane moist/pink Respiratory: Clear to auscultation, Normal air movement Cardiovascular: Regular rate, Normal S1, Normal S2, No murmurs, no chest wall tenderness Abdominal: left inguinal pack placed in surgical site, no active bleeding or discharge Extremities: No clubbing, No cyanosis, No edema, Normal pulses, No tenderness/swelling Skin: No rashes, No breakdown, No significant lesion Neuro: Normal gait, Normal speech, Strength at 5/5 X4 ext, Normal tone, Sensation intact, Cranial nerves 3-12 NL, Reflexes 2+ Psych/Mental Status: Mental status NL, Mood NL laboratory and microbiology Laboratory Tests 09/27/25 06:00 Test 09/27/25 06:00 Range/Units Serum Glucose 257 H 74-106 mg/dL Microbiology Date/Time Source Procedure Growth Status 09/26/25 08:32 Groin Gram Stain - Final Resulted 09/26/25 08:32 Groin Anaerobic Culture - Preliminary No growth Resulted 09/26/25 08:32 Groin Aerobic Culture - Preliminary Resulted 09/24/25 15:41 Blood Blood Culture - Preliminary NO GROWTH AFTER 48 HOURS OF INCUBATION. 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 -left inguinal ultrasound showed: no significant abnormality CT abdomen and pelvis without contrast: Extensive soft tissue trending, skin wall thickening within the anterior perineal, scrotal region, lymphadenopathy - IV fluids - started empiric antibiotic ceftriaxone, clindamycin - blood culture x2 negative in preliminary report -wound culture preliminary growth showed Gram-positive cocci in pair and in clusters -surgery consult appreciated and recommended continue IV antibiotic 40-72 hours and p.o. antibiotic 70 10 days after discharge -Continue b.i.d. packing changes while in the hospital - pain management -urine for GC/ chlamydia-negative Diabetes mellitus HbA1c 9.6 Lantus 15 units switch to 20 units Continue basal bolus insulin moderate sliding scale Monitor blood sugar Essential hypertension Lisinopril Monitor blood pressure Anxiety Alprazolam Hyponatremia Hypocalcemia BMP Hydrocele greater lt than right Outpatient follow-up Polysubstance abuse UDS positive for benzo and cannabis >11 minute spent consult patient. Morbid Obesity BMI 33.5 - patient counseled on diet, exercise, lifestyle modifications. Diet: Regular GI prophylaxis: Famotidine DVT prophylaxis: Lovenox Goals of care discussion and more than 23 minute spent . Full code status. Case discussed with Dr. Arevalo Plan discussed with: Patient, Other (Nurse) My Orders My Orders Orders - MARYSOL GUPTA RESIDENT Procedure Category Date Status Time Insulin Lantus PHA 09/27/25 In Process (Glargine) (Lantus) 08:30 Communication Order ORDERS 09/27/25 Verified 14:41 Visit Coding STANDARD RES Billing Provider: INOCENTE AREVALO MD Date of Service if different f: Sep 27, 2025 Common Visit Codes: [id number] INP/OBS CARE(HIGH) MARYSOL GUPTA RESIDENT Sep 27, 2025 15:00 INOCENTE AREVALO MD Oct 03, 2025 15:51
[2025-09-28] VITALS (8 sets, daily range): BP systolic 114–156; BP diastolic 53–99; PULSE 52–79; RESP 16–79; TEMP 97.7–98.5; O2SAT 93–98
[2025-09-28 06:12] LABS: Hematocrit 38.5 % (41.0-53.0); Hemoglobin 12.9 g/dL (13.5-17.5); Mean Corpuscular Hemoglobin 30.2 pg (28.0-32.0); Mean Corpuscular Volume 90.0 fL (80.0-100.0); Nucleated Red Blood Cells % 0.1 %
[2025-09-28 06:20] LABS: Chloride 101 mmol/L (98-107); Potassium 3.6 mmol/L (3.5-5.1); Sodium 138 mmol/L (136-145)
[2025-09-28 06:21] LABS: Anion Gap 7 (5-15); Calcium 8.7 mg/dL (8.7-10.4); Carbon Dioxide 30 mmol/L (20-31)
[2025-09-28 06:26] LABS: BUN/Creatinine Ratio 11.7 (10.0-20.0); Blood Urea Nitrogen 9 mg/dL (9-23)
[2025-09-28 06:28] LABS: Glucose 187 mg/dL (74-106)
[2025-09-28] MEDS: INSULIN LISPRO (HUMAN) 100 UNITS/ML ML SC SCH (07:00)
[2025-09-28] MEDS: hydroCHLOROthiazide 25 MG TAB PO SCH (08:57)
--- NOTE | 2025-09-28 14:47 | DVHPNRES ---
Progress Note Date Seen: Sep 28, 2025 Resident Creating Document: MARYSOL GUPTA RESIDENT Medical Necessity Reason Pt with a Central, PICC or Fol: No Subjective Review of Systems This is a 34-year-old male with past medical history of DM 2, HTN, anxiety disorder, came to ER with a complaint of left groin pain which started for 2 days which is getting worse day by day, initially patient noticed small bump unknown any history like insect bite. Pain was 10/10 intensity, localized, no radiation, constant, dull increase any kind of movement like walking and mild relieved on rest. Patient noted mild discharge from this area and decided to come to ER. Currently denies any fever, chills, nausea, vomiting, abdominal distention, constipation, diarrhea or any other acute distress. Patient having recent history of sexual exposure month ago but denies any dysuria, hematuria or urethral discharge. Patient denies any past history of STD. PMHx: diabetes mellitus, hypertension, anxiety PSHx: Denies Family history: reviewed, noncontributory Social history: ex smoker, drinks occasionally, previous marijuana use Home medication: lisinopril, hydrochlorothiazide, Xanax, metformin Allergic history: denies PCP: Dr. Bautista Patient seen and evaluated in bedside. Patient denies any fever, SOB chest pain, abdominal pain. Patient pain well-controlled with current medication. No acute event overnight. Continue IV antibiotic and possible discharge with p.o. antibiotic tomorrow. Objective vital signs Vital Sign Date Time Temp Pulse Resp B/P (MAP) Pulse Ox O2 Delivery O2 Flow Rate FiO2 09/28/25 08:58 156/93 09/28/25 08:54 98.3 62 17 97 98.3 09/27/25 20:00 Room Air* 0 21 Total Intake and Output 09/27/25 09/27/25 09/28/25 15:00 23:00 07:00 Intake Total 1695 ml 2100 ml Output Total 1800 ml Balance 1695 ml 300 ml medications Current Medications Medications Dose Ordered Sig/Lizette Route Start Time Stop Time Status Last Admin Dose Admin Acetaminophen 650 mg Q6HR PO 09/25/25 00:00 09/28/25 06:00 650 MG Ceftriaxone Sodium/Dextrose 50 ml @ 50 mls/hr DAILY IV 09/25/25 10:00 UNV Diagnostic Test (Pha) 1 strip ACHS 09/25/25 07:00 09/28/25 11:35 1 STRIP Insulin Human Regular AC SC 09/25/25 07:00 09/28/25 11:35 6 UNITS Dextrose 50 ml UD PRN IV 09/24/25 23:00 Ceftriaxone Sodium/Dextrose 50 ml @ 50 mls/hr DAILY IV 09/26/25 00:00 09/28/25 08:56 50 MLS/HR Alprazolam 0.5 mg BID PO 09/25/25 10:00 09/28/25 08:58 0.5 MG Lisinopril 20 mg DAILY PO 09/25/25 10:00 09/28/25 08:58 20 MG Ketorolac Tromethamine 15 mg Q6HPRN PRN IV 09/25/25 00:00 09/30/25 00:00 09/28/25 09:28 15 MG Clindamycin Phosphate 50 ml @ 50 mls/hr Q8HR IV 09/25/25 06:00 09/28/25 05:37 50 MLS/HR Acetaminophen 650 mg Q6HP PRN PO 09/25/25 08:30 Enoxaparin Sodium 40 mg DAILY SC 09/26/25 10:00 09/28/25 08:59 40 MG Famotidine 40 mg DAILY PO 09/26/25 10:00 09/28/25 08:57 40 MG Insulin Glargine 20 units HS SC 09/27/25 08:30 09/27/25 22:00 20 UNITS Insulin Human Lispro 7 units AC SC 09/28/25 07:00 09/28/25 11:34 7 UNITS Hydrochlorothiazide 25 mg DAILY PO 09/28/25 10:00 09/28/25 08:57 25 MG Examination General Appearance: Alert, Oriented X3, Cooperative HEENT: Atraumatic, PERRLA, EOMI, Mucous membrane moist/pink Respiratory: Clear to auscultation, Normal air movement Cardiovascular: Regular rate, Normal S1, Normal S2, No murmurs, no chest wall tenderness Abdominal: left inguinal pack placed in surgical site, no active bleeding or discharge Extremities: No clubbing, No cyanosis, No edema, Normal pulses, No tenderness/swelling Skin: No rashes, No breakdown, No significant lesion Neuro: Normal gait, Normal speech, Strength at 5/5 X4 ext, Normal tone, Sensation intact, Cranial nerves 3-12 NL, Reflexes 2+ Psych/Mental Status: Mental status NL, Mood NL laboratory and microbiology Laboratory Tests 09/28/25 05:46 Test 09/28/25 05:46 Range/Units Serum Glucose 187 H 74-106 mg/dL Microbiology Date/Time Source Procedure Growth Status 09/26/25 08:32 Groin Gram Stain - Final Resulted 09/26/25 08:32 Groin Anaerobic Culture - Preliminary No growth Resulted 09/26/25 08:32 Aerobic Culture - Preliminary Methicillin Resistant S.aureus Resulted 09/24/25 15:41 Blood Blood Culture - Preliminary NO GROWTH AFTER 72 HOURS OF INCUBATION. 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 -left inguinal ultrasound showed: no significant abnormality CT abdomen and pelvis with contrast: Extensive soft tissue trending, skin wall thickening within the anterior perineal, scrotal region, lymphadenopathy - IV fluids - started empiric antibiotic ceftriaxone, clindamycin - blood culture x2 negative in preliminary report -wound culture preliminary growth showed Gram-positive cocci in pair and in clusters -surgery consult appreciated and recommended continue IV antibiotic 40-72 hours and p.o. antibiotic 7-10 days after discharge -Continue b.i.d. packing changes - pain management -urine for GC/ chlamydia-negative Diabetes mellitus HbA1c 9.6 Lantus 15 units switch to 20 units Continue basal bolus insulin moderate sliding scale Monitor blood sugar Essential hypertension Lisinopril Hydrochlorothiazide Monitor blood pressure Anemia due to expected blood loss from surgery left inguinal region 09/28: Hemoglobin 12.9, HCT 38.5, MCV 90.0 No active signs of bleeding Anxiety Alprazolam Hyponatremia Hypocalcemia BMP Hydrocele greater lt than right Outpatient follow-up Polysubstance abuse UDS positive for benzo and cannabis >13 minute spent consult patient. Morbid Obesity BMI 33.5 - patient counseled on diet, exercise, lifestyle modifications. Diet: Regular GI prophylaxis: Famotidine DVT prophylaxis: Lovenox Goals of care discussion and more than 19 minute spent . Full code status. Case discussed with Dr. Mickey Terrazas discussed with: Patient, Other (Nurse) My Orders My Orders Orders - MARYSOL GUPTA Procedure Category Date Status Time Communication Order ORDERS 09/27/25 Transmitted 14:41 Insulin Lispro PHA 09/28/25 In Process (Human) (Humalog) 07:00 Hydrochlorothiazide PHA 09/28/25 In Process Tablet (Hydrochlorot 10:00 Visit Coding STANDARD RES Billing Provider: INOCENTE BOYKIN MD Date of Service if different f: Sep 28, 2025 Common Visit Codes: [id number] INP/OBS CARE(HIGH) MARYSOL GUPTA Sep 28, 2025 14:47 INOCENTE BOYKIN MD Oct 04, 2025 13:48
[2025-09-29 05:00] VITALS: BP 157/94; PULSE 53; RESP 18; TEMP 97.7; O2SAT 99
[2025-09-29 07:32] LABS: Anion Gap 9 (5-15); Chloride 100 mmol/L (98-107); Potassium 3.9 mmol/L (3.5-5.1); Sodium 141 mmol/L (136-145)
[2025-09-29 07:33] LABS: Calcium 9.5 mg/dL (8.7-10.4)
[2025-09-29 07:35] LABS: Carbon Dioxide 32 mmol/L (20-31)
[2025-09-29 07:38] LABS: BUN/Creatinine Ratio 8.6 (10.0-20.0)
[2025-09-29 07:41] LABS: Blood Urea Nitrogen 8 mg/dL (9-23); Glucose 125 mg/dL (74-106)
[2025-09-29 07:43] LABS: Hematocrit 40.5 % (41.0-53.0); Hemoglobin 13.5 g/dL (13.5-17.5); Mean Corpuscular Hemoglobin 30.1 pg (28.0-32.0); Mean Corpuscular Volume 90.0 fL (80.0-100.0); Nucleated Red Blood Cells % 0.1 %
[2025-09-29 08:00] VITALS: PULSE 53; RESP 16; O2SAT 96
[2025-09-29 09:03] VITALS: BP 156/97; PULSE 55; RESP 16; TEMP 98.6; O2SAT 96
[2025-09-29] MEDS ORDERED: INSUINJ37 SC (11:02)
[2025-09-29] MEDS ORDERED: BLOO1KIT60 XX (11:02)
[2025-09-29] MEDS ORDERED: INSU100I4 SC (11:02)
[2025-09-29] MEDS ORDERED: LANC-347 XX (11:02)
[2025-09-29] MEDS ORDERED: METF-490 PO (11:02)
[2025-09-29] MEDS ORDERED: AUG875T PO (11:02)
[2025-09-29 11:44] VITALS: BP 156/97; PULSE 55; RESP 16; TEMP 37; O2SAT 100
[2025-09-29 13:00] VITALS: BP 151/87; PULSE 55; RESP 19; TEMP 97.7; O2SAT 98
--- NOTE | 2025-09-29 13:34 | DVHDSRES ---
Discharge Summary Date of Admission Resident Creating Document: MARYSOL GUPTA RESIDENT Sep 24, 2025 at 22:49 Date of Discharge: Sep 29, 2025 Labs/Diagnostic Data: Laboratory Results Test 09/29/25 06:30 09/28/25 20:57 09/25/25 06:30 09/25/25 03:11 White Blood Count 7.4 10^3/uL (4.4-10.8) Red Blood Count 4.50 10^6/uL (4.5-5.90) Hemoglobin 13.5 g/dL (13.5-17.5) Hematocrit 40.5 % (41.0-53.0) Mean Corpuscular Volume 90.0 fL (80.0-100.0) Mean Corpuscular Hemoglobin 30.1 pg (28.0-32.0) Mean Corpuscular Hemoglobin Concent 33.4 g/dL (32.0-36.0) Red Cell Distribution Width 13.2 % (11.8-14.3) Platelet Count 314 10^3/uL (140-450) Mean Platelet Volume 8.8 fL (6.9-10.8) Neutrophils (%) (Auto) 49.4 % (37.0-80.0) Lymphocytes (%) (Auto) 38.4 % (10.0-50.0) Monocytes (%) (Auto) 8.4 % (0.0-12.0) Eosinophils (%) (Auto) 3.1 % (0.0-7.0) Basophils (%) (Auto) 0.7 % (0.0-2.0) Neutrophils # (Auto) 3.6 10 ^3/uL (1.6-8.6) Lymphocytes # (Auto) 2.8 10 ^3/uL (0.4-5.4) Monocytes # (Auto) 0.6 10 ^3/uL (0-1.3) Eosinophils # (Auto) 0.2 10 ^3/uL (0-0.8) Basophils # (Auto) 0 10 ^3/uL (0-0.2) Nucleated Red Blood Cells 0.1 % Sodium Level 141 mmol/L (136-145) Potassium Level 3.9 mmol/L (3.5-5.1) Chloride Level 100 mmol/L (98-107) Carbon Dioxide Level 32 mmol/L (20-31) Anion Gap 9 (5-15) Blood Urea Nitrogen 8 mg/dL (9-23) Creatinine 0.93 mg/dL (0.700-1.30) Glomerular Filtration Rate Calc 111 mL/min (>90) BUN/Creatinine Ratio 8.6 (10.0-20.0) Serum Glucose 125 mg/dL (74-106) Calcium Level 9.5 mg/dL (8.7-10.4) POC Glucose 286 mg/dl (70-106) Urine Color Yellow (Yellow) Urine Clarity Clear (Clear) Urine pH 6.0 (5.0-9.0) Urine Specific [place] 1.025 (1.001-1.035) Urine Protein Trace (Negative) Urine Ketones 1+ (Negative) Urine Blood Negative /uL (Negative) Urine Nitrite Negative (Negative) Urine Bilirubin Negative (Negative) Urine Urobilinogen 2 mg/dL (Negative) Urine Leukocyte Esterase 2+ /uL (Negative) Urine RBC 3 /hpf (0 - 3) Urine Microscopic WBC 6 /HPF (0-3) Urine Squamous Epithelial Cells Few /hpf (<5) Urine Bacteria None seen /hpf (None Seen) Urine Hyaline Casts Few /lpf (0 - 2) Urine Mucus Few (None Seen) Urine Glucose 4+ mg/dL (Normal) Urine Opiates Screen Neg (NEGATIVE) Urine Fentanyl Screen Neg (NEGATIVE) Urine Barbiturates Screen Neg (NEGATIVE) Urine Phencyclidine Screen Neg (NEGATIVE) Urine Amphetamines Screen Neg (NEGATIVE) Urine Benzodiazepines Screen Pos (NEGATIVE) Urine Cocaine Screen Neg (NEGATIVE) Urine Cannabinoids Screen Pos (NEGATIVE) Chlamydia trachomatis (CONNIE) Negative (Negative) Neisseria gonorrhoeae (CONNIE) Negative (Negative) Total Bilirubin 0.8 mg/dL (0.2-1.0) Aspartate Amino Transferase (AST) 21 U/L (13-40) Alanine Aminotransferase (ALT) 63 U/L (7-40) Alkaline Phosphatase 73 U/L (46-116) Total Protein 6.8 g/dL (5.7-8.2) Albumin 3.9 g/dL (3.2-4.8) Test 09/24/25 23:06 09/24/25 15:41 Prothrombin Time 11.0 sec (9.3-11.8) Prothrombin Time INR 1.04 (0.9-1.15) Activated Partial Thromboplast Time 29.6 SEC (24.5-34.5) Thyroid Stimulating Hormone (TSH) 3.84 uIU/mL (0.55-4.78) Hemoglobin A1c 9.6 % A1C (<5.7) Lactic Acid Level 0.8 mmol/L (0.4-2.0) Other Laboratory Tests 09/29/25 06:30 Brief Hx & Hospital Course: This is a 34-year-old male with past medical history of DM 2, HTN, anxiety disorder, came to ER with a complaint of left groin pain which started for 2 days which is getting worse day by day, initially patient noticed small bump unknown any history like insect bite. Pain was 10/10 intensity, localized, no radiation, constant, dull increase any kind of movement like walking and mild relieved on rest. Patient noted mild discharge from this area and decided to come to ER. Currently denies any fever, chills, nausea, vomiting, abdominal distention, constipation, diarrhea or any other acute distress. Patient having recent history of sexual exposure month ago but denies any dysuria, hematuria or urethral discharge. Patient denies any past history of STD. PMHx: diabetes mellitus, hypertension, anxiety PSHx: Denies Family history: reviewed, noncontributory Social history: ex smoker, drinks occasionally, previous marijuana use Home medication: lisinopril, hydrochlorothiazide, Xanax, metformin Allergic history: denies PCP: Dr. Baut[facility] course: this is a 34-year-old male admitted due to left inguinal region cellulitis. CT abdomen without contrast showed no definitive visualized inguinal hernia allowing for limitation given the majority of the inguinal canal is outside of the field of view. Left inguinal ultrasound showed: no significant abnormality. CT abdomen and pelvis with contrast: Extensive soft tissue trending, skin wall thickening within the anterior perineal, scrotal region, lymphadenopathy. treated with empiric IV antibiotic ceftriaxone and clindamycin. surgery consulted and I and D done. blood culture x2 negative for any growth. During hospitalization, continue packing change in wound daily. patient's symptoms significantly improved, leukocytosis resolved. surgery consult appreciated and recommended continue IV antibiotic 40-72 hours and p.o. antibiotic 7-10 days after discharge. during examination on 09/29/2020, patient denies any fever, cough, SOB, gait instability, chest pain, abdominal pain or any other acute distress. during hospitalization, treated both acute and chronic medical condition. patient got maximum benefit during inpatient stay. patient recommended follow-up with surgery outpatient clinic and continue home medication. Continue Augmentin oral antibiotic total 10 days after discharge, medication sent to pharmacy. Patient is hemodynamically stable for discharge. Patient has received maximum benefit from inpatient treatment. Time was given to answer patient's questions and concerns in layman terms and explained by RN. Patient verbalized understanding and agreed with treatment and follow-up. Patient was recommended to return to ER if he experiences any worsening symptoms not limited to current symptoms. Follow-up with PCP and outpatient continuity clinic 10/02/2025 at 8:30 am after discharge. follow-up with surgery outpatient clinic within a week after discharge. Physical examination Constitutional: No: Fever, Chills, Sweats, Weakness, Malaise, Other Eyes: No: Pain, Vision change, Conjunctivae inflammation, Eyelid inflammation, Other, Redness ENT: No: Ear pain, Ear discharge, Nose pain, Nose discharge, Nose congestion, Mouth pain, Mouth swelling, Throat pain, Throat swelling, Other Respiratory: Shortness of breath; No: Cough, Dry, SOB with excertion, Wheezing, Hemoptysis, Pleuritic Pain, Sputum, Wheezing, Other Cardiovascular: No: Chest Pain, Palpitations, Orthopnea, Paroxysmal Noc. Dyspnea, Edema, Lt Headedness, Other Gastrointestinal: No: Nausea, Vomiting, Abdominal Pain, Diarrhea, Constipation, Melena, Hematochezia, Other Genitourinary: No Dysuria, No Frequency, No Incontinence, No Hematuria, No Retention, No Other Musculoskeletal: No: other, neck pain, shoulder pain, arm pain, back pain, hand pain, leg pain, foot pain Skin: No: Rash, Lesions, Jaundice, left inguinal area surgical site dry and clean covered with dry gauze bandage Neurological: No: Weakness, Numbness, Incoordination, Change in speech, Confusion, Seizures, Other 23 minute spent with patient. Case discussed with patient, nurse, Dr. Arevalo. Operations or Procedures ORDERING PHYSICIAN: ELIAS HAAS PROCEDURE(s): ABPL - CT AB PEL WO CON-NO ORAL OR IV REASON: Inguinal hernia? ORDER NUMBER(s): [id number], ACCESSION NUMBER(s): [id number] EXAM: CT CT AB PEL WO CON-NO ORAL OR IV INDICATION: Inguinal hernia TECHNIQUE: Volumetric multidetector CT images of the abdomen and pelvis were obtained without contrast. All CT scans at this facility use dose modulation, iterative reconstruction, and/or weight based dosing when appropriate to reduce radiation dose to as low as reasonably achievable. COMPARISON: None FINDINGS: [LOWER CHEST]: The partially visualized lung bases are clear without a pleural effusion. The cardiac size is normal without pericardial effusion. [LIVER]: Normal hepatic size without suspicious focal lesion. [GALLBLADDER AND BILIARY TREE]: No cholelithiasis. [SPLEEN]: Unremarkable. [PANCREAS]: Unremarkable. [ADRENAL GLANDS]: Unremarkable [KIDNEYS]: No hydronephrosis. No nephroureterolithiasis. No suspicious focal lesion. [BLADDER]: Unremarkable for the degree distention. [REPRODUCTIVE ORGANS]: Unremarkable. [BOWEL/MESENTERY]: Stomach is normal. No CT evidence of bowel obstruction. Normal appendix. [ASCITES]: Absent [LYMPHADENOPATHY]: No pathologically enlarged lymph nodes by CT size criteria [VASCULATURE]: No aneurysmal dilatation. [ABDOMINAL WALL]: No definitive visualized inguinal hernia allowing for limitation given the majority of the inguinal canal is outside of the field of view. Unremarkable. [MUSCULOSKELETAL]: No acute fracture or aggressive focal osseous lesion. Multifocal degenerative change of the visualized spine. [OTHER]: None IMPRESSION: 1. No definitive visualized inguinal hernia allowing for limitation given the majority of the inguinal canal is outside of the field of view. ATED BY: JOSE ANTONIO PUGH MD DICTATED DATE/TIME: 09/24/252204 ORDERING PHYSICIAN: MELINA MELENDEZ RESIDENT PROCEDURE(s): LLEXT - LEFT LOWER EXTREMITY ULTRASOUN REASON: r/ o inguinal abscess ORDER NUMBER(s): [id number], ACCESSION NUMBER(s): [id number] EXAM: US LEFT LOWER EXTREMITY ULTRASOUN DATE OF SERVICE: 09/24/2025 11:09 PM ORDERING PHYSICIAN: HENRY AVALOS REASON FOR EXAM: r/ o inguinal abscess. Pain. TECHNIQUE: Targeted ultrasound of the left groin and inguinal region was performed. COMPARISON: None FINDINGS: No mass or focal fluid collections. No enlarged lymph nodes in the left groin. IMPRESSION: No significant abnormality is seen on ultrasound. ATED BY: GWEN GODINEZ MD DICTATED DATE/TIME: 09/24/25 0185 ORDERING PHYSICIAN: MARYSOL GUPTA PROCEDURE(s): ABPLIV - CT AB PEL WITH IV CON ONLY REASON: r/o inguinal abscess/Lyhphadenopathy. ORDER NUMBER(s): [id number], ACCESSION NUMBER(s): [id number] INDICATION: r/o inguinal abscess/Lyhphadenopathy. TECHNIQUE: CT axial images of the abdomen and pelvis are obtained with intravenous contrast. Coronal and sagittal reformats were obtained. Radiation Dose Information: CTDI volume is 19.29 mGy. Dose-length product is 1460.34 mGy*cm COMPARISON: None FINDINGS: The lung bases demonstrate no pleural effusion. Adrenal glands, spleen, pancreas unremarkable. No enhancing hepatic lesion. No CT evidence for cholelithiasis. No hydronephrosis. Stomach is partially distended. Small bowel loops are normal in caliber Moderate volume stool within the colon. Normal appendix. Abdominal aorta normal in caliber. Retroperitoneal lymphadenopathy measuring up to 1.6 cm. Bladder contracted. Left iliac lymph node measuring 2.2 cm. Left inguinal lymph node measuring 15 mm. Right inguinal lymph node measuring 12 mm. There is extensive soft tissue stranding changes within the perineum/ scrotal region, more pronounced on the left. Associated skin wall thickening. Bilateral hydroceles, [id number]. IMPRESSION: Extensive soft tissue stranding, skin wall thickening within the anterior peroneal, scrotal region, more lateralized towards the left. Correlate for cellulitis and other etiologies. Inguinal, iliac, retroperitoneal lymphadenopathy which may be secondary to the underlying process within the perineum/scrotal region Hydroceles, [id number]-right Other findings as described. ATED BY: TAHMINA GALEAS MD DICTATED DATE/TIME: 09/25/25 1314 Condition at Discharge: Stable Final Diagnosis/Problems List Cellulitis of the left inguinal region, status post I&D Ruled out lymphogranuloma venereum Lymphadenopathy Diabetes mellitus with hyperglycemia, HbA1c 9.6 Anxiety disorder Essential hypertension Anemia due to expected blood loss from surgery left inguinal region Hydrocele greater lt than right Polysubstance abuse Hyponatremia Hypocalcemia Morbid Obesity BMI 33.5 Discharge Disposition: Home Discharge Instruct/Medications Diet: Consistent carbohydrate Activity: No Restrictions, As Tolerated Follow Up/Referral: Follow up with DC clinic on next Thursday10/02/25 at 8:30 AM Follow-up with outpatient surgery clinic within 2 weeks after discharge Medications: As per EMR Scheduled Amoxicillin & Pot Clavulanate (Augmentin Tablet), 875 MG PO BID Cholecalciferol (Vitamin D3), 1 CAP PO QWEEKLY, (Reported) Hctz (Hydrochlorothiazide), 1 TAB PO DAILY, (Reported) Insulin Glargine (Lantus Solostar), 15 UNIT SC HS Insulin Lispro (Humalog Kwikpen), 5 UNIT SC TID Lisinopril (Lisinopril), 1 TAB PO DAILY, (Reported) Metformin Hydrochloride (Metformin Hcl Er), 1 TAB PO BID Discontinued Medications Alprazolam (Alprazolam), 1 TAB PO Q12HP PRN Alprazolam (Alprazolam), 1 TAB PO BID PRN Metformin Hydrochloride (Metformin Hcl), 1 TAB PO BID, (Reported) Durable Medical Equipment Blood Glucose Monitoring Suppl (D-Care Glucometer Kit/Glu W/Device), KIT XX TID, (DME) Lancets (Freestyle Lancets), AC XX TID, (DME) Discharge Statement: "Patient was advised to return to the ER or call 911 if any headaches, dizziness, shortness of breath, chest pain, abdominal pain, bleeding, fevers, or worsening of medical condition. Patient was counseled about treatment plan, medications, possible side effects, patientverbalized understanding. All questions were answered to the best of my ability. This discharge took greater then 30 minutes in planning, reviewing documentation, counseling the patient, and discussing with other team members." ASSESSMENT ASSESSMENT Assessment Cellulitis of the left inguinal region, status post I&D Visit Coding STANDARD RES Billing Provider: INOCENTE AREVALO MD Date of Service if different f: Sep 29, 2025 Common Visit Codes: 48605-OWI/OBS DISCH DAY >30min MARYSOL GUPTA RESIDENT Sep 29, 2025 13:34 INOCENTE AREVALO MD Sep 30, 2025 00:00
[2025-10-01 10:07] LABS: Vitamin D-2 25-Hydroxy 6.5 ng/mL (.); Vitamin D-3 25-Hydroxy 12.0 ng/mL (.)
== END 2025-09-29 12:45 | disposition home or self-care (01) | DRG 364 ==
LOC: EDBD 14:44 → ER 14:44 → EDUNIT# 14:44 → OVERFLOW 22:49 → WEST WING 09-25 23:20
PROVIDERS: ADMIT Student in an Organized Health Care Education/Training Program; ATTEND Student in an Organized Health Care Education/Training Program
PROC: 0Y960ZZ Drainage of Left Inguinal Region, Open Approach (ICD-10-PCS; principal; 2025-09-26 08:12)
DX: L03.314 Cellulitis of groin (principal); E83.51 Hypocalcemia; E66.01 Morbid (severe) obesity due to excess calories; F12.10 Cannabis abuse, uncomplicated; E11.65 Type 2 diabetes mellitus with hyperglycemia; D50.0 Iron deficiency anemia secondary to blood loss (chronic); L02.214 Cutaneous abscess of groin; N39.0 Urinary tract infection, site not specified; I10 Essential (primary) hypertension; J45.909 Unspecified asthma, uncomplicated; E87.1 Hypo-osmolality and hyponatremia; F41.9 Anxiety disorder, unspecified; N43.3 Hydrocele, unspecified; R59.1 Generalized enlarged lymph nodes; Z68.33 Body mass index [BMI] 33.0-33.9, adult; R74.01 Elevation of levels of liver transaminase levels; Z87.891 Personal history of nicotine dependence; Z82.3 Family history of stroke; Z82.49 Family history of ischemic heart disease and other diseases of the circulatory system; Z83.3 Family history of diabetes mellitus
CPT/HCPCS: 36415; 74176; 74177; 80048; 80053; 80307; 81001; 82306; 82962; 83036; 83605; 84443; 85025; 85610; 85730; 86850; 86900; 86901; 87040; 87070; 87075; 87077; 87186; 87205; 93926; 99291; 99292; G0378; J1100; J1815; J1885; J2250; J2543; J2704; J3490